=== PATIENT | male | born 1990 | race Asian ===

== ENCOUNTER 2016-11-27 23:47 | Emergency (ER) | payer SELFPAY ==
[2016-11-28] MEDS ORDERED: NORMAL SALINE 1000 ML 1,000 ML IV ONE (00:42)
[2016-11-28] MEDS ORDERED: ONDANSETRON HCL INJ/PF 4 MG/2 ML SDV IV ONE (00:42)
--- NOTE | 2016-11-28 00:51 | ER Document Report ---
ED General - General Chief Complaint: Nausea/Vomiting Stated Complaint: UNABLE TO SLEEP TRAVEL OUTSIDE OF THE [place] IN LAST 30 DAYS: No - HPI Notes: Patient is a 26-year-old male with a history of anxiety and bipolar who presents to the ED complaining of nausea and vomiting that began this evening has been persistent. Patient states that he is on day 2 of Latuda and tolerated it well yesterday, but today it is been irritating his stomach and he has been vomiting since. Patient states that he vomited 7 times in the last hour. Patient states that he cannot keep any fluids down at this time. Patient states that he does not have any abdominal pain, just nausea. Patient states that he does have a psych provider at [facility] and follows closely with them. Patient states that mentally he feels stable with no SI or HI. Patient states that he currently just feels weak from vomiting all evening. Patient states that he began taking Latuda because of mood swings. He denies any other significant past medical history or drug allergies. Denies any IV drug use. Denies any headache, fever, neck pain, changes in vision/speech/ mentation/hearing, URI, sore throat, chest pain, palpitations, syncope, cough, shortness of breath, wheeze, dyspnea, abdominal pain, diarrhea, urinary retention, dysuria, hematuria, or rash. - Related Data Allergies/Adverse Reactions: No Known Allergies Allergy (Verified 04/17/13 12:07) Past Medical History - Social History Smoking Status: Unknown if Ever Smoked Family History: Reviewed & Not Pertinent Patient has suicidal ideation: No Patient has homicidal ideation: No Renal/ Medical History: Denies: Hx Peritoneal Dialysis Psychiatric Medical History: Reports: Hx Bipolar Disorder, Hx Depression - Immunizations Hx Diphtheria, Pertussis, Tetanus Vaccination: Yes Review of Systems - Review of Systems Notes: REVIEW OF SYSTEMS: CONSTITUTIONAL : Denies fever, chills, or sweats. Denies recent illness. EENT: Denies eye, ear, throat, or mouth pain or symptoms. Denies nasal or sinus congestion or discharge. Denies throat, tongue, or mouth swelling or difficulty swallowing. CARDIOVASCULAR: Denies chest pain. Denies palpitations or racing or irregular heart beat. Denies ankle edema. RESPIRATORY: Denies cough, cold, or chest congestion. Denies shortness of breath, difficulty breathing, or wheezing. GASTROINTESTINAL: see hpi. GENITOURINARY: Denies difficulty urinating, painful urination, burning, frequency, blood in urine, or discharge. MUSCULOSKELETAL: Denies back or neck pain or stiffness. Denies joint pain or swelling. SKIN: Denies rash, lesions or sores. NEUROLOGICAL: Denies confusion or altered mental status. Denies passing out or loss of consciousness. Denies dizziness or lightheadedness. Denies headache. Denies weakness or paralysis or loss of use of either side. Denies problems with gait or speech. Denies sensory loss, numbness, or tingling. ALL OTHER SYSTEMS REVIEWED AND NEGATIVE. Dictation was performed using [employer] voice recognition software Physical Exam - Vital signs Vitals: Temp Pulse Resp BP Pulse Ox 98.7 F 94 20 125/77 99 11/28/16 00:01 11/28/16 00:01 11/28/16 00:01 11/28/16 00:01 11/28/16 00:01 Notes: PHYSICAL EXAMINATION: GENERAL: Well-appearing, well-nourished and in no acute distress. HEAD: Atraumatic, normocephalic. EYES: Pupils equal round and reactive to light, extraocular movements intact, sclera anicteric, conjunctiva are normal. ENT: Nares patent and without discharge. oropharynx clear without exudates. No tonsilar hypertrophy or erythema. Moist mucous membranes. No sinus tenderness. NECK: Normal range of motion, supple without lymphadenopathy. No rigidity. LUNGS: Breath sounds clear to auscultation bilaterally and equal. No wheezes rales or rhonchi. HEART: Regular rate and rhythm without murmurs, rubs, gallops. ABDOMEN: Soft, nontender, nondistended abdomen. No guarding, no rebound. No masses appreciated. Normal bowel sounds present. No CVA tenderness bilaterally. Doan neg. Psoas/rosving neg. Musculoskeletal: FROM to passive/active. Strength 5+/5. Extremities: No cyanosis, clubbing, or edema b/l. NEUROLOGICAL: MMSE intact. Cranial nerves grossly intact. Normal speech, normal gait. Normal sensory, motor exams PSYCH: Normal mood, normal affect. SKIN: Warm, Dry, normal turgor, no rashes or lesions noted. Course - Re-evaluation Re-evalutation: 11/28/16 02:31 Patient is an afebrile, well-hydrated, 26-year-old male who presents the ED with nausea and vomiting, suspect an intolerance with his Latuda. Vitals are stable. PE otherwise unremarkable at this time. CBC, CMP, lipase were unremarkable for any acute pathology. 1 L normal saline and Zofran given today along with initial swelling of rubbing alcohol pads. Upon reevaluation, patient states that he is feeling much better and has not vomited since prior to my evaluation. Patient states that he is ready to go home and is asymptomatic currently. Patient is tolerating p.o. intake. Low suspicion/risk for acute appendicitis, bowel obstruction, acute cholecystitis, perforated diverticulitis, incarcerated hernia, pancreatitis, perforated ulcer, peritonitis , sepsis, testicular torsion, or other systemic emergent condition at this time. Patient is aware that his condition can change from initial presentation and he needs to monitor symptoms closely and seek medical attention if any acute changes. Conservative measures otherwise for symptoms. Recheck with PCM in 2-3 days. Patient to call his psych provider tomorrow morning to further discuss his medication. Return to the ED with any worsening/concerning symptoms otherwise as reviewed in discharge. Patient is in agreement. - Vital Signs Vital signs: Temp Pulse Resp BP Pulse Ox 98.7 F 94 20 125/77 99 11/28/16 00:01 11/28/16 00:01 11/28/16 00:01 11/28/16 00:01 11/28/16 00:01 - Laboratory Result Diagrams: 11/28/16 01:25 11/28/16 01:25 Laboratory results interpreted by me: 11/28/16 11/28/16 01:25 01:25 RBC 4.27 L Glucose 115 H Discharge - Discharge Clinical Impression: Nausea and vomiting Qualifiers: Vomiting type: unspecified Vomiting Intractability: non-intractable Qualified Code(s): R11.2 - Nausea with vomiting, unspecified Condition: Stable Disposition: HOME, SELF-CARE Instructions: Antinausea Medication ([facility]), Intravenous (IV) Fluids ([facility]), Vomiting ([facility]) Additional Instructions: Maintain adequate fluid and food intake Take medications as directed/needed Monitor for any acute changes in your symptoms Recheck with your PCM in 2-3 days Call your psych provider for further management/guidance Return to the ED with any worsening symptoms and/or development of fever, headache, chest pain, palpitations, syncope, shortness of breath, trouble breathing, abdominal pain, n/v/d, blood in stool/urine, loss of control of bowel /bladder, or other worsening symptoms that are concerning to you. Prescriptions: Ondansetron [Zofran Odt 4 mg Tablet] 1 - 2 tab PO Q4H PRN #15 tab.rapdis PRN Reason: For Nausea/Vomiting Referrals: [facility] [Provider Group] - Follow up as needed [facility] [Provider Group] - Follow up as needed [facility] [Provider Group] - Follow up tomorrow
[2016-11-28 01:49] LABS: ABSOLUTE BASOPHILS # (AUTO) 0.1 10^3/uL (0.0-0.2); ABSOLUTE MONOCYTES (AUTO) 0.5 10^3/uL (0.1-1.4); ABSOLUTE NEUT (AUTO) 3.4 10^3/uL (1.7-8.2); BASOPHILS % (AUTO) 1.5 % (0-2); EOSINOPHILS % (AUTO) 0.5 % (0-6); HEMATOCRIT 39.9 % (37.9-51.0); HEMOGLOBIN 14.2 g/dL (13.5-17.0); HGB HCT DIFFERENCE 2.7; LYMPHOCYTES % (AUTO) 20.5 % (13-45); MEAN CORPUSCULAR HEMOGLOBIN 33.2 pg (27.0-33.4); MEAN CORPUSCULAR HGB CONC 35.5 g/dL (32.0-36.0); MEAN CORPUSCULAR VOLUME 93 fl (80-97); MONOCYTES % (AUTO) 9.7 % (3-13); RED BLOOD COUNT 4.27 10^6/uL (4.35-5.55); SEGMENTED NEUTROPHILS % (AUTO) 67.8 % (42-78)
[2016-11-28 02:00] LABS: ALANINE AMINOTRANSFERASE 24 U/L (21-72); ALBUMIN 4.3 g/dL (3.5-5.0); ALKALINE PHOSPHATASE 47 U/L (38-126); ANION GAP 12 (5-19); ASPARTATE AMINO TRANSFERASE 18 U/L (17-59); BILIRUBIN,DIRECT 0.3 mg/dL (0.0-0.4); BILIRUBIN,TOTAL 0.5 mg/dL (0.2-1.3); BLOOD UREA NITROGEN 10 mg/dL (7-20); CALCIUM 9.1 mg/dL (8.4-10.2); CARBON DIOXIDE 25 mmol/L (22-30); CHLORIDE 104 mmol/L (98-107); CREATININE RESULT 0.62 mg/dL (0.52-1.25); GLUCOSE 115 mg/dL (75-110); POTASSIUM 4.1 mmol/L (3.6-5.0); SODIUM 140.6 mmol/L (137-145); TOTAL PROTEIN 7.1 g/dL (6.3-8.2)
[2016-11-28 03:08] VITALS: BP 97/58
== END 2016-11-28 02:55 | disposition home or self-care (01) ==
LOC: ER 23:47
DX: R11.2 Nausea with vomiting, unspecified (principal)
CPT/HCPCS: 99283; 96361; 96374; 36415; 83690; 85025; 80053; J2405; J7030

== ENCOUNTER 2016-11-28 16:23 | Emergency (ER) | payer SELFPAY ==
[2016-11-28 16:32] VITALS: BP 110/61
== END 2016-11-28 16:47 | disposition left against medical advice (07) ==
LOC: ER 16:23
DX: Z53.21 Procedure and treatment not carried out due to patient leaving prior to being seen by health care provider (principal)

== ENCOUNTER 2016-11-28 18:47 | Emergency (ER) | payer SELFPAY ==
--- NOTE | 2016-11-28 19:56 | ER Document Report ---
ED General - General Chief Complaint: Nausea/Vomiting Stated Complaint: NAUSEA Time Seen by Provider: 11/28/16 19:54 Mode of Arrival: Ambulatory Information source: Patient Notes: Patient has a history of bipolar with mood disorder. He states 2 days ago he was started on Latuda. He states now he has had restlessness with nausea and vomiting. He states that he stopped taking it at the advice of his psychiatrist today. He states that he is waiting in the waiting room many of his symptoms have resolved. He states the abdominal cramping is much better. When he did have symptoms he had some mild to moderate abdominal cramping. It was diffuse. Nothing made it better or worse. There was no radiation. TRAVEL OUTSIDE OF THE [place] IN LAST 30 DAYS: No - Related Data Allergies/Adverse Reactions: No Known Allergies Allergy (Verified 11/28/16 18:51) Past Medical History - Social History Smoking Status: Never Smoker Chew tobacco use (# tins/day): No Frequency of alcohol use: None Drug Abuse: None Family History: Reviewed & Not Pertinent Renal/ Medical History: Denies: Hx Peritoneal Dialysis Psychiatric Medical History: Reports: Hx Bipolar Disorder, Hx Depression - Immunizations Hx Diphtheria, Pertussis, Tetanus Vaccination: Yes Review of Systems - Review of Systems Constitutional: denies: Chills, Fever Cardiovascular: denies: Chest pain, Palpitations Respiratory: denies: Cough, Short of breath Physical Exam - Vital signs Vitals: Temp Pulse Resp BP Pulse Ox 98.3 F 106 H 16 110/63 100 11/28/16 18:51 11/28/16 18:51 11/28/16 18:51 11/28/16 18:51 11/28/16 18:51 Interpretation: Normal, Other - Although patient was tachycardic in the pivot area on my exam his pulse was 82. - General General appearance: Appears well, Alert - HEENT Head: Normocephalic, Atraumatic Eyes: Normal Pupils: PERRL - Respiratory Respiratory status: No respiratory distress Chest status: Nontender Breath sounds: Normal Chest palpation: Normal - Cardiovascular Rhythm: Regular Heart sounds: Normal auscultation Murmur: No - Abdominal Inspection: Normal Distension: No distension Bowel sounds: Normal Tenderness: Nontender Organomegaly: No organomegaly - Back Back: Normal, Nontender - Extremities General upper extremity: Normal inspection, Nontender, Normal color, Normal ROM , Normal temperature General lower extremity: Normal inspection, Nontender, Normal color, Normal ROM , Normal temperature, Normal weight bearing. No: Poonam's sign - Neurological Neuro grossly intact: Yes Cognition: Normal Orientation: AAOx4 Hudson Coma Scale Eye Opening: Spontaneous Patrick Coma Scale Verbal: Oriented Hudson Coma Scale Motor: Obeys Commands Hudson Coma Scale Total: 15 Speech: Normal Motor strength normal: LUE, RUE, LLE, RLE Sensory: Normal - Psychological Associated symptoms: Normal affect, Normal mood - Skin Skin Temperature: Warm Skin Moisture: Dry Skin Color: Normal Course - Vital Signs Vital signs: Temp Pulse Resp BP Pulse Ox 98.3 F 106 H 16 110/63 100 11/28/16 18:51 11/28/16 18:51 11/28/16 18:51 11/28/16 18:51 11/28/16 18:51 Discharge - Discharge Clinical Impression: Adverse drug reaction Condition: Stable Disposition: HOME, SELF-CARE Instructions: Medication Side Effects ([facility]) Additional Instructions: Do not take any more Latuda. Call your mental health physician and discuss appropriate medication since you can no longer take Latuda.
[2016-11-28 20:07] VITALS: BP 114/68
== END 2016-11-28 19:58 | disposition home or self-care (01) ==
LOC: ER 18:47
DX: R11.2 Nausea with vomiting, unspecified (principal); R45.1 Restlessness and agitation; T43.595A Adverse effect of other antipsychotics and neuroleptics, initial encounter; F31.9 Bipolar disorder, unspecified
CPT/HCPCS: 99283

== ENCOUNTER 2016-11-28 21:48 | Emergency (ER) | payer SELFPAY ==
[2016-11-28] MEDS ORDERED: PROMETHAZINE HCL 25 MG TABLET PO ONE (23:23)
--- NOTE | 2016-11-28 23:40 | ER Document Report ---
ED General - General Chief Complaint: Nausea/Vomiting Stated Complaint: NAUSEA Time Seen by Provider: 11/28/16 23:14 Notes: Patient is a 26-year-old male who presents with complaint of having nausea and severe anxiety. He was on Latuda. After starting Latuda he felt very sick and a lot of vomiting. He stopped the Latuda and was feeling better. He came back earlier tonight because he was turned feel nauseous again said while in the waiting room he felt better went home. He says when he got home he should feel very anxious and feels like he cannot control his anxiety which makes him more nauseous and feeling well. Since he has arrived here he says he feels better but says that he knows as soon as he goes home he will get extremely anxious and will be back to feeling nauseous and potentially vomiting. Denies abdominal pain. No fevers. No blood in his emesis. No diarrhea. No other complaints at this time. He has a history of bipolar and anxiety. TRAVEL OUTSIDE OF THE [place] IN LAST 30 DAYS: No - Related Data Allergies/Adverse Reactions: No Known Allergies Allergy (Verified 11/28/16 18:51) Past Medical History - Social History Smoking Status: Never Smoker Frequency of alcohol use: None Drug Abuse: None Family History: Reviewed & Not Pertinent Patient has suicidal ideation: No Renal/ Medical History: Denies: Hx Peritoneal Dialysis Psychiatric Medical History: Reports: Hx Bipolar Disorder, Hx Depression - Immunizations Hx Diphtheria, Pertussis, Tetanus Vaccination: Yes Review of Systems - Review of Systems Notes: My Normal Review Basic REVIEW OF SYSTEMS: CONSTITUTIONAL : Denies fever, chills, or sweats. Denies recent illness. EENT: Denies eye, ear, throat, or mouth pain or symptoms. Denies nasal or sinus congestion. CARDIOVASCULAR: Denies chest pain. RESPIRATORY: Denies cough, cold, or chest congestion. Denies shortness of breath, difficulty breathing, or wheezing. GASTROINTESTINAL: Denies abdominal pain. Some vomiting MUSCULOSKELETAL: Denies neck or back pain or joint pain or swelling. SKIN: Denies rash or skin lesions. NEUROLOGICAL: Denies altered mental status or loss of consciousness. Denies headache. Denies weakness or paralysis or loss of use of either side. Denies problems with gait or speech. Denies sensory or motor loss. PSYCHIATRIC: Severe anxiety ALL OTHER SYSTEMS REVIEWED AND NEGATIVE. Physical Exam - Vital signs Vitals: Temp Pulse Resp BP Pulse Ox 98.8 F 66 18 115/74 97 11/28/16 21:54 11/28/16 21:54 11/28/16 21:54 11/28/16 21:54 11/28/16 21:54 - Notes Notes: General Appearance: Well nourished, alert, cooperative, no acute distress, no obvious discomfort. Vitals: reviewed, See vital signs table. Head: no swelling or tenderness to the head Eyes: PERRL, EOMI, Conjuctiva clear Mouth: No decreasd moisture Lungs: No wheezing, No rales, No rhonci, No accessory muscle use, good air exchange bilaterally. Heart: Normal rate, Regular rythm, No murmur, no rub Abdomen: Normal BS, soft, No rigidity, No abdominal tenderness, No guarding, no rebound, no abdominal masses, no organomegaly Extremities: strength 5/5 in all extremities, good pulses in all extremities, no swelling or tenderness in the extremities, no edema. Skin: warm, dry, appropriate color, no rash Neuro: speech clear, oriented x 3, normal affect, responds appropriately to questions. Course - Re-evaluation Re-evalutation: 11/29/16 03:31 Patient is medically stable for psychiatric evaluation. He complains of severe anxiety. He was taken off as a 2 weeks of side effects of the vomiting. Now is having anxiety and wants help. Patient is on involuntary commitment paperwork. Is not suicidal homicidal. Patient is stable. Dictation of this chart was performed using voice recognition software; therefore, there may be some unintended grammatical errors. - Vital Signs Vital signs: Temp Pulse Resp BP Pulse Ox 98.8 F 66 18 115/74 97 11/28/16 21:54 11/28/16 21:54 11/28/16 21:54 11/28/16 21:54 11/28/16 21:54 - Laboratory Result Diagrams: 11/28/16 23:35 11/28/16 23:35 Laboratory results interpreted by me: 11/28/16 11/28/16 23:35 23:35 RBC 4.13 L Potassium 3.4 L AST 14 L ALT 20 L Salicylates < 1.0 L Acetaminophen < 10 L - EKG Interpretation by Me Additional EKG results interpreted by me: EKG is reviewed and interpreted by me. EKG shows sinus bradycardia with rate of [address] segment elevation or depression. No ischemic T-wave inversions. PA interval, QRS duration, QTc intervals are within normal range. Old EKG for comparison is from December 01, 2015. 11/28/16 23:39 Discharge - Discharge Clinical Impression: Anxiety Condition: Stable Disposition: PSYCH HOSP/UNIT
[2016-11-28 23:48] LABS: ABSOLUTE LYMPHOCYTES (AUTO) 1.2 10^3/uL (0.5-4.7); ABSOLUTE MONOCYTES (AUTO) 0.5 10^3/uL (0.1-1.4); ABSOLUTE NEUT (AUTO) 2.7 10^3/uL (1.7-8.2); EOSINOPHILS % (AUTO) 0.1 % (0-6); HEMATOCRIT 38.4 % (37.9-51.0); HEMOGLOBIN 13.7 g/dL (13.5-17.0); HGB HCT DIFFERENCE 2.7; MEAN CORPUSCULAR HEMOGLOBIN 33.2 pg (27.0-33.4); MEAN CORPUSCULAR HGB CONC 35.7 g/dL (32.0-36.0); MEAN CORPUSCULAR VOLUME 93 fl (80-97); MONOCYTES % (AUTO) 11.6 % (3-13); RED BLOOD COUNT 4.13 10^6/uL (4.35-5.55); SEGMENTED NEUTROPHILS % (AUTO) 61.3 % (42-78); WHITE BLOOD COUNT 4.4 10^3/uL (4.0-10.5)
[2016-11-28 23:58] LABS: ALANINE AMINOTRANSFERASE 20 U/L (21-72); ALBUMIN 4.2 g/dL (3.5-5.0); ALKALINE PHOSPHATASE 49 U/L (38-126); ANION GAP 9 (5-19); ASPARTATE AMINO TRANSFERASE 14 U/L (17-59); BILIRUBIN,DIRECT 0.2 mg/dL (0.0-0.4); BLOOD UREA NITROGEN 7 mg/dL (7-20); CALCIUM 9.3 mg/dL (8.4-10.2); CARBON DIOXIDE 25 mmol/L (22-30); CHLORIDE 107 mmol/L (98-107); CREATININE RESULT 0.65 mg/dL (0.52-1.25); GLUCOSE 101 mg/dL (75-110); POTASSIUM 3.4 mmol/L (3.6-5.0); SODIUM 141.3 mmol/L (137-145); TOTAL PROTEIN 6.9 g/dL (6.3-8.2)
[2016-11-29 00:01] LABS: ALCOHOL < 10 mg/dL (NONE DETECTED)
[2016-11-29] MEDS ORDERED: POTASSIUM CHLORIDE 10 MEQ TABLET.SA PO ONE (01:50)
[2016-11-29 08:55] LABS: APPEARANCE,URINE CLEAR; BILIRUBIN,URINE NEGATIVE (NEGATIVE); GLUCOSE, URINE NEGATIVE (NEGATIVE); KETONES,URINE TRACE mg/dL (NEGATIVE); LEUKOCYTE ESTERASE,URINE NEGATIVE (NEGATIVE); NITRITE,URINE NEGATIVE (NEGATIVE); PROTEIN,URINE NEGATIVE (NEGATIVE); URINE SPECIFIC GRAVITY 1.016
[2016-11-29 09:06] LABS: URINE BARBITURATES SCREEN NEGATIVE; URINE METHADONE SCREEN NEGATIVE; URINE OPIATES LOW NEGATIVE; URINE PHENCYCLIDINE SCREEN NEGATIVE
--- NOTE | 2016-11-29 10:04 | EKG REPORT ---
SEVERITY:- BORDERLINE ECG - SINUS RHYTHM INFERIOR Q WAVES, PROBABLY NORMAL VARIATION : Confirmed by: Matilda Salvador MD 29-Nov-2016 10:03:11
--- NOTE | 2016-11-29 10:08 | ER Document Report ---
Doctor's Note Notes: 11/29/16 10:05 Patient sleeping comfortably on stretcher, easily awakens, reports feeling much better this morning and ready to go home, patient denies suicidal or homicidal ideation, states that he has suffered from anxiety his whole life, recently started on a new medication, Latuda, he is currently in services through [facility] and admits to having several therapy appointments over the next few weeks, patient reports that he feels safe to go home, lab and vital signs are stable, patient is stable for discharge Discharge - Discharge Clinical Impression: Anxiety Condition: Stable Disposition: HOME, SELF-CARE Additional Instructions: Anxiety The physician feels that some of your health problems are being caused by anxiety. Anxiety affects your health in many ways. Anxiety alone can cause palpitations, sweats, chest pains, abdominal pains, shortness of breath, and headaches. It contributes to ulcer disease, high blood pressure, irritable bowel syndrome, and has been shown to cause flare-ups of many other diseases. Anxiety is not a simple disorder to treat. If the anxiety is due to recent life stresses, you may simply need time to "work through" the changes. If the anxiety is due to an underlying unhappiness with yourself or due to psychiatric disturbance, professional help will be needed. Your physician can refer you for further help if needed. Anti-anxiety medication is occasionally given if the stress is acute or if you are having trouble sleeping. Chronic or frequent use of these medications is not a good idea because the body becomes reliant on it, preventing you from dealing with life's normal stresses. Please follow-up with [facility] upon discharge. AT ANY TIME, IF YOUR SYMPTOMS CHANGE SIGNIFICANTLY OR WORSEN OR YOU DEVELOP NEW SYMPTOMS, RETURN TO THE EMERGENCY DEPARTMENT IMMEDIATELY FOR RE-EVALUATION. OUR GOAL IS TO PROVIDE EXCELLENT MEDICAL CARE! WE HOPE THAT WE HAVE MET YOUR EXPECTATIONS DURING YOUR EMERGENCY DEPARTMENT VISIT AND THAT YOU FEEL YOU HAVE RECEIVED EXCELLENT CARE! Referrals: [facility] [Outside] - 11/29/16
--- NOTE | 2016-11-29 11:27 | ER Document Report ---
ED Psych Disorder / Suicide - General Chief Complaint: Nausea/Vomiting Stated Complaint: NAUSEA Time Seen by Provider: 11/28/16 23:14 TRAVEL OUTSIDE OF THE [place] IN LAST 30 DAYS: No - HPI Notes: Patient is a 26-year-old male who presents with complaint of having nausea and severe anxiety. He was on Latuda. After starting Latuda he felt very sick and a lot of vomiting. He stopped the Latuda and was feeling better. He came back earlier tonight because he was turned feel nauseous again said while in the waiting room he felt better went home. He says when he got home he should feel very anxious and feels like he cannot control his anxiety which makes him more nauseous and feeling well. Since he has arrived here he says he feels better but says that he knows as soon as he goes home he will get extremely anxious and will be back to feeling nauseous and potentially vomiting. Patient states he no longer is feeling nauseous. He disclosed he started taking Latuda and started to feel sick. Patient states he took his medication in the evening with a full meal; last dose was on the . Patient states he does not normally vomit from his anxiety. Patient is seen at [facility]. He denied suicidal and homicidal ideation. He disclosed he has never had an issue with seeing or hearing things that others do not. Patient is alert and orientated to person, place, time and circumstance. Mood is euthymic with congruent affect. Patient denies suicidal and homicidal ideation. Patient denies auditory visual hallucinations. Delusions were absent and behaviors congruent with intact reality based presentation i.e. organized, linear, rational thinking. Conversational speech was within normal rate tone and prosody. Eye contact was well-maintained. Intellectual abilities appear to be within the average range. Tension and concentration was good. Insight, judgment, impulse control is good. 300.00 (F41.9) unspecified anxiety disorder per history provided by patient Adverse reaction to medication Impression\\plan: Patient is considered psychiatrically clear for discharge. Patient does not meet IVC criteria per [place] GS 122C. Patient denies suicidal and homicidal ideation. Delusions were absent behaviors congruent with intact reality based presentation i.e. organized, linear, rational thinking. Patient does have diagnosis of anxiety (per patient);however, patient does not have vomiting as a symptom of anxiety. Patient reports symptoms of anxiety increased and vomiting started after taking Latuda. Patient is no longer experiencing nausea and reports he is feeling calm. Patient is not demonstrating any behaviors congruent with anxiety i.e. patient is calm and resting in bed (no psychomotor agitation, sweating, or attention/concentration issues observed) patient is recommended to follow-up with his outpatient provider, [facility], upon discharge. Dr. López was consulted and the care and management of this patient; attending physician is in agreement with recommendations and disposition. - Related Data Allergies/Adverse Reactions: No Known Allergies Allergy (Verified 11/28/16 18:51) Past Medical History - Social History Smoking Status: Never Smoker Frequency of alcohol use: None Drug Abuse: None Family History: Reviewed & Not Pertinent Patient has suicidal ideation: No Renal/ Medical History: Denies: Hx Peritoneal Dialysis Psychiatric Medical History: Reports: Hx Bipolar Disorder, Hx Depression - Immunizations Hx Diphtheria, Pertussis, Tetanus Vaccination: Yes Physical Exam - Vital signs Vitals: Temp Pulse Resp BP Pulse Ox 98.8 F 66 18 115/74 97 11/28/16 21:54 11/28/16 21:54 11/28/16 21:54 11/28/16 21:54 11/28/16 21:54 Course - Vital Signs Vital signs: Temp Pulse Resp BP Pulse Ox 98.0 F 53 L 18 98/54 L 98 11/29/16 06:28 11/29/16 06:28 11/28/16 21:54 11/29/16 06:28 11/29/16 06:28 - Laboratory Result Diagrams: 11/28/16 23:35 11/28/16 23:35 Laboratory results interpreted by me: 11/28/16 11/28/16 11/29/16 23:35 23:35 08:10 RBC 4.13 L Potassium 3.4 L AST 14 L ALT 20 L Urine Ketones TRACE H Urine Urobilinogen 2.0 H Salicylates < 1.0 L Acetaminophen < 10 L Discharge - Discharge Clinical Impression: Anxiety Condition: Stable Disposition: HOME, SELF-CARE Additional Instructions: Anxiety The physician feels that some of your health problems are being caused by anxiety. Anxiety affects your health in many ways. Anxiety alone can cause palpitations, sweats, chest pains, abdominal pains, shortness of breath, and headaches. It contributes to ulcer disease, high blood pressure, irritable bowel syndrome, and has been shown to cause flare-ups of many other diseases. Anxiety is not a simple disorder to treat. If the anxiety is due to recent life stresses, you may simply need time to "work through" the changes. If the anxiety is due to an underlying unhappiness with yourself or due to psychiatric disturbance, professional help will be needed. Your physician can refer you for further help if needed. Anti-anxiety medication is occasionally given if the stress is acute or if you are having trouble sleeping. Chronic or frequent use of these medications is not a good idea because the body becomes reliant on it, preventing you from dealing with life's normal stresses. Please follow-up with [facility] upon discharge. AT ANY TIME, IF YOUR SYMPTOMS CHANGE SIGNIFICANTLY OR WORSEN OR YOU DEVELOP NEW SYMPTOMS, RETURN TO THE EMERGENCY DEPARTMENT IMMEDIATELY FOR RE-EVALUATION. OUR GOAL IS TO PROVIDE EXCELLENT MEDICAL CARE! WE HOPE THAT WE HAVE MET YOUR EXPECTATIONS DURING YOUR EMERGENCY DEPARTMENT VISIT AND THAT YOU FEEL YOU HAVE RECEIVED EXCELLENT CARE! Referrals: [facility] [Outside] - 11/29/16
[2016-11-29 11:54] VITALS: BP 104/71
== END 2016-11-29 11:56 | disposition home or self-care (01) ==
LOC: ER 21:48
DX: F41.9 Anxiety disorder, unspecified (principal); R11.0 Nausea
CPT/HCPCS: 36415; 80053; 80307; 81001; 85025; 93005; 93010; 99284

== ENCOUNTER 2017-03-18 03:46 | Emergency (ER) | payer SELFPAY ==
[2017-03-18] MEDS ORDERED: NORMAL SALINE 1000 ML 1,000 ML IV ONE (05:08)
[2017-03-18] MEDS ORDERED: ONDANSETRON HCL INJ/PF 4 MG/2 ML SDV IV ONE (05:08)
--- NOTE | 2017-03-18 05:21 | ER Document Report ---
ED General - General Chief Complaint: Abdominal Pain Stated Complaint: STOMACH PAIN/VOMITING Time Seen by Provider: 03/18/17 05:11 TRAVEL OUTSIDE OF THE [place] IN LAST 30 DAYS: No - HPI Notes: Patient is a 26-year-old male with no significant past medical history aside her mental health disorder who presents the ED complaining of episodes of nausea /vomiting/loose stool 1 week. Pt has vomited twice today. Patient states that he has a discomfort to his left lower quadrant, but is not a sharp pain. Patient states that he also has increased urinary frequency. Patient is able to eat and drink, but does have a decreased p.o. intake. Patient has not been using any [id number] meds for symptoms. Patient states that his discomfort in the abdomen will increase in intensity intermittently. Patient states that it the discomfort right now is described as a dullness. The pain does not radiate. Denies any headache, fever, neck pain, URI, sore throat, chest pain, palpitations, syncope, cough, shortness of breath, wheeze, dyspnea, melena, hematochezia, hematemesis, diarrhea, urinary retention, dysuria, hematuria, loss of control of bowel or bladder, numbness/tingling, saddle anesthesia, muscle paralysis/weakness, or rash. - Related Data Allergies/Adverse Reactions: No Known Allergies Allergy (Verified 03/18/17 03:50) Past Medical History - Social History Smoking Status: Unknown if Ever Smoked Family History: Reviewed & Not Pertinent Renal/ Medical History: Denies: Hx Peritoneal Dialysis Psychiatric Medical History: Reports: Hx Bipolar Disorder, Hx Depression - Immunizations Hx Diphtheria, Pertussis, Tetanus Vaccination: Yes Review of Systems - Review of Systems Notes: REVIEW OF SYSTEMS: CONSTITUTIONAL : Denies fever, chills, or sweats. Denies recent illness. EENT: Denies eye, ear, throat, or mouth pain or symptoms. Denies nasal or sinus congestion or discharge. Denies throat, tongue, or mouth swelling or difficulty swallowing. CARDIOVASCULAR: Denies chest pain. Denies palpitations or racing or irregular heart beat. Denies ankle edema. RESPIRATORY: Denies cough, cold, or chest congestion. Denies shortness of breath, difficulty breathing, or wheezing. GASTROINTESTINAL: see hpi. no watery stools. GENITOURINARY: see hpi MUSCULOSKELETAL: Denies back or neck pain or stiffness. Denies joint pain or swelling. SKIN: Denies rash, lesions or sores. NEUROLOGICAL: Denies confusion or altered mental status. Denies passing out or loss of consciousness. Denies dizziness or lightheadedness. Denies headache. Denies weakness or paralysis or loss of use of either side. Denies problems with gait or speech. Denies sensory loss, numbness, or tingling. Denies seizures. ALL OTHER SYSTEMS REVIEWED AND NEGATIVE. Dictation was performed using [employer] voice recognition software Physical Exam - Vital signs Vitals: Temp Pulse Resp BP Pulse Ox 97.9 F 82 16 126/83 H 99 03/18/17 03:53 03/18/17 03:53 03/18/17 03:53 03/18/17 03:53 03/18/17 03:53 Notes: PHYSICAL EXAMINATION: GENERAL: Well-appearing, well-nourished and in no acute distress. A&Ox4. Answers questions appropriately. appears comfortable and moving w/o difficulty. HEAD: Atraumatic, normocephalic. EYES: Pupils equal round and reactive to light, extraocular movements intact, sclera anicteric, conjunctiva are normal. ENT: Nares patent and without discharge. oropharynx clear without exudates. No tonsilar hypertrophy or erythema. Moist mucous membranes. NECK: Normal range of motion, supple without lymphadenopathy LUNGS: Breath sounds clear to auscultation bilaterally and equal. No wheezes rales or rhonchi. HEART: Regular rate and rhythm without murmurs, rubs, gallops. ABDOMEN: Soft, nontender, nondistended abdomen. No guarding, no rebound. No masses appreciated. Normal bowel sounds present. No CVA tenderness bilaterally. No obvious inguinal hernia or lymphadenopathy. Musculoskeletal: FROM to passive/active. Strength 5+/5. Extremities: No cyanosis, clubbing, or edema b/l. Peripheral pulses 2+. Capillary refill less than 3 seconds. NEUROLOGICAL: Normal speech, normal gait. Normal sensory, motor exams PSYCH: Normal mood, normal affect. SKIN: Warm, Dry, normal turgor, no rashes or lesions noted. Course - Re-evaluation Re-evalutation: 03/18/17 06:13 Patient is an afebrile, well-hydrated, 26-year-old male who presents the ED with suspected gastroenteritis, suspect viral. Vitals are stable. PE is otherwise unremarkable. Patient's abdomen was soft and nontender. CBC, CMP, lipase, urinalysis were unremarkable for any acute pathology. Patient was given fluids as well as Zofran. Patient is tolerating p.o. Low suspicion/risk for acute appendicitis, bowel obstruction, acute cholecystitis, perforated diverticulitis, incarcerated hernia, pancreatitis, perforated ulcer, peritonitis , sepsis, testicular torsion, or other systemic emergent condition at this time. Patient is aware that his condition can change from initial presentation and he needs to monitor symptoms closely and seek medical attention if any acute changes. I will send him home with a prescription for Zofran to use as needed. Conservative measures otherwise for symptoms. Recheck with PCM in 3-5 days. Consider consult with a senior data mining analyst. Return to the ED with any worsening/concerning symptoms otherwise as reviewed in discharge. Patient is in agreement. - Vital Signs Vital signs: Temp Pulse Resp BP Pulse Ox 97.9 F 82 16 126/83 H 99 03/18/17 03:53 03/18/17 03:53 03/18/17 03:53 03/18/17 03:53 03/18/17 03:53 - Laboratory Result Diagrams: 03/18/17 05:35 03/18/17 05:35 Laboratory results interpreted by me: 03/18/17 03/18/17 05:24 05:35 Total Bilirubin 1.6 H Urine Ketones 80 H Discharge - Discharge Clinical Impression: Acute gastroenteritis Condition: Stable Disposition: HOME, SELF-CARE Instructions: Gastroenteritis (adult) (ON LICENSE OF [facility]) Additional Instructions: Maintain adequate fluid and food intake [place] diet ([employer] Bananas, rice, apples, toast, etc Zofran as needed tylenol if needed Monitor for any worsening symptoms Make sure you are staying hydrated enough to urinate and have normal BM's Recheck with your PCM in 3-5 days Consider consult with Gastroenterology for ongoing/worsening symptoms Return to the ED with any worsening symptoms and/or development of fever, headache, chest pain, palpitations, syncope, shortness of breath, trouble breathing, abdominal pain, n/v/d, blood in stool/urine, weakness, or other worsening symptoms that are concerning to you. Prescriptions: Ondansetron [Zofran Odt 4 mg Tablet] 1 - 2 tab PO Q4H PRN #15 tab.rapdis PRN Reason: For Nausea/Vomiting Forms: Elevated Blood Pressure Referrals: REY MOJICA MD [ACTIVE STAFF] - Follow up as needed SULTANA WHALEN MD [ACTIVE STAFF] - Follow up as needed
[2017-03-18 05:37] LABS: APPEARANCE,URINE CLEAR; BILIRUBIN,URINE NEGATIVE (NEGATIVE); COLOR,URINE YELLOW; GLUCOSE, URINE NEGATIVE (NEGATIVE); KETONES,URINE 80 mg/dL (NEGATIVE); LEUKOCYTE ESTERASE,URINE NEGATIVE (NEGATIVE); NITRITE,URINE NEGATIVE (NEGATIVE); PROTEIN,URINE NEGATIVE (NEGATIVE); URINE SPECIFIC GRAVITY 1.013; UROBILINOGEN,URINE NEGATIVE mg/dL (<2.0)
[2017-03-18 05:52] LABS: ABSOLUTE LYMPHOCYTES (AUTO) 1.2 10^3/uL (0.5-4.7); ABSOLUTE MONOCYTES (AUTO) 0.6 10^3/uL (0.1-1.4); ABSOLUTE NEUT (AUTO) 2.8 10^3/uL (1.7-8.2); BASOPHILS % (AUTO) 0.6 % (0-2); EOSINOPHILS % (AUTO) 0.3 % (0-6); HEMOGLOBIN 14.4 g/dL (13.5-17.0); MEAN CORPUSCULAR HEMOGLOBIN 33.2 pg (27.0-33.4); MEAN CORPUSCULAR HGB CONC 35.1 g/dL (32.0-36.0); MEAN CORPUSCULAR VOLUME 94 fl (80-97); MONOCYTES % (AUTO) 12.4 % (3-13); PLATELET COUNT 223 10^3/uL (150-450); RED BLOOD COUNT 4.35 10^6/uL (4.35-5.55); RED CELL DISTRIBUTION WIDTH 11.8 % (11.5-14.0); SEGMENTED NEUTROPHILS % (AUTO) 60.7 % (42-78); TOTAL CELLS COUNTED % (AUTO) 100 %; WHITE BLOOD COUNT 4.6 10^3/uL (4.0-10.5)
[2017-03-18 06:11] LABS: ALANINE AMINOTRANSFERASE 26 U/L (21-72); ALBUMIN 4.9 g/dL (3.5-5.0); ALKALINE PHOSPHATASE 53 U/L (38-126); ANION GAP 16 (5-19); ASPARTATE AMINO TRANSFERASE 49 U/L (17-59); BILIRUBIN,DIRECT 0.3 mg/dL (0.0-0.4); BILIRUBIN,TOTAL 1.6 mg/dL (0.2-1.3); BLOOD UREA NITROGEN 15 mg/dL (7-20); CALCIUM 9.3 mg/dL (8.4-10.2); CARBON DIOXIDE 22 mmol/L (22-30); CHLORIDE 101 mmol/L (98-107); GLUCOSE 75 mg/dL (75-110); LIPASE 60.6 U/L (23-300); POTASSIUM 3.6 mmol/L (3.6-5.0); SODIUM 139.2 mmol/L (137-145); TOTAL PROTEIN 7.8 g/dL (6.3-8.2)
[2017-03-18] MEDS ORDERED: KETOROLAC TROMETHAMINE INJ/PF 30 MG/1 ML SDV IV ONE (06:19)
[2017-03-18 07:08] VITALS: BP 104/53
== END 2017-03-18 07:08 | disposition home or self-care (01) ==
LOC: ER 03:46
DX: K52.9 Noninfective gastroenteritis and colitis, unspecified (principal); R11.2 Nausea with vomiting, unspecified; R35.0 Frequency of micturition
CPT/HCPCS: 99284; 36415; 83690; 85025; 80053; 81001; J1885; J2405; J7030

== ENCOUNTER 2017-03-18 23:04 | Emergency (ER) | payer SELFPAY ==
--- NOTE | 2017-03-19 04:26 | ER Document Report ---
ED General - General Chief Complaint: Dizziness Stated Complaint: NECK DISCOMFORT AND DIZZINESS Time Seen by Provider: 03/19/17 03:36 Notes: Patient is a 26-year-old male who returns emergency department complaining of dizziness and headache that has since resolved. Patient states that he went to bed when he went home after evaluation last night and felt fine all day. Patient states that he went to go lie down at 9:00 when he had pain in his neck and headache. Patient states that this is since resolved. He also admits to intermittent dizziness which is since resolved. Patient states that he does have a history of anxiety and dizziness. Patient states that he was drinking fluids throughout the day. TRAVEL OUTSIDE OF THE [place] IN LAST 30 DAYS: No - Related Data Allergies/Adverse Reactions: No Known Allergies Allergy (Verified 03/18/17 23:16) Past Medical History - Social History Smoking Status: Unknown if Ever Smoked Drug Abuse: Marijuana Family History: Reviewed & Not Pertinent Patient has suicidal ideation: No Patient has homicidal ideation: No Renal/ Medical History: Denies: Hx Peritoneal Dialysis Psychiatric Medical History: Reports: Hx Bipolar Disorder, Hx Depression - Immunizations Hx Diphtheria, Pertussis, Tetanus Vaccination: Yes Review of Systems - Review of Systems Constitutional: See HPI EENT: No symptoms reported Cardiovascular: No symptoms reported Respiratory: No symptoms reported Gastrointestinal: No symptoms reported Neurological/Psychological: See HPI -: Yes All other systems reviewed and negative Physical Exam - Vital signs Vitals: Temp Pulse Resp BP Pulse Ox 98.6 F 88 18 104/75 97 03/18/17 23:20 03/18/17 23:20 03/18/17 23:20 03/18/17 23:20 03/18/17 23:20 - Notes Notes: PHYSICAL EXAM GENERAL: Alert, interacts well. HEAD: Normocephalic, atraumatic. EYES: Pupils equal, round, and reactive to light. Extraocular movements intact. ENT: Oral mucosa moist, tongue midline. NECK: Full range of motion. Supple. Trachea midline. LUNGS: Clear to auscultation bilaterally, no wheezes, rales, or rhonchi. No respiratory distress. HEART: Regular rate and rhythm. No murmurs, gallops, or rubs. ABDOMEN: Soft, nondistended, nontender. No guarding, rebound, or rigidity.. Bowel sounds present in all 4 quadrants. EXTREMITIES: Moves all 4 extremities spontaneously. No edema, radial and dorsalis pedis pulses 2/4 bilaterally. No cyanosis. NEUROLOGICAL: Alert and oriented x4. Normal speech. PSYCH: Normal affect, normal mood. SKIN: Warm, dry, normal turgor. No rashes or lesions noted. Course - Re-evaluation Re-evalutation: 03/19/17 05:22 Patient is a 26-year-old male is hemodynamically stable, no acute distress and afebrile. Patient states that his symptoms have resolved after rest and PO fluids. Patient's hydration status is much improved upon assessment of orthostatic vitalsa urinalysis. Patient is tolerating p.o. here in the department without any difficulties. Discussed with him home management of his viral syndrome and otherwise to follow-up with primary care list on discharge paperwork. Patient agrees with plan and is stable for discharge home. - Vital Signs Vital signs: Temp Pulse Resp BP Pulse Ox 98.6 F 57 L 18 111/63 97 03/18/17 23:20 03/19/17 04:52 03/18/17 23:20 03/19/17 04:52 03/18/17 23:20 - Laboratory Laboratory results interpreted by me: 03/19/17 04:01 Urine Ketones TRACE H Discharge - Discharge Clinical Impression: Headache Qualifiers: Headache type: tension-type Headache chronicity pattern: acute headache Intractability: not intractable Qualified Code(s): G44.209 - Tension-type headache, unspecified, not intractable Condition: Good Disposition: HOME, SELF-CARE Additional Instructions: You were seen today for lightheadedness/dizziness. The exact cause of your symptoms is unclear but your workup here is reassuring without any concerning findings. Please follow closely with your primary care physician in the next 1- 3 days. Return if you pass out, have additional episodes of lightheadedness, develop weakness/numbness, have persistent vomiting, chest pain, shortness of breath or any other symptoms that are concerning to you Referrals: [facility] [Provider Group] - Follow up in 1 week [facility] [NO LOCAL MD] - Follow up in 1 week
[2017-03-19 04:27] LABS: APPEARANCE,URINE CLEAR; BILIRUBIN,URINE NEGATIVE (NEGATIVE); COLOR,URINE YELLOW; GLUCOSE, URINE NEGATIVE (NEGATIVE); KETONES,URINE TRACE mg/dL (NEGATIVE); LEUKOCYTE ESTERASE,URINE NEGATIVE (NEGATIVE); NITRITE,URINE NEGATIVE (NEGATIVE); PROTEIN,URINE NEGATIVE (NEGATIVE); URINE SPECIFIC GRAVITY 1.006; UROBILINOGEN,URINE NEGATIVE mg/dL (<2.0)
[2017-03-19 05:52] VITALS: BP 101/59
== END 2017-03-19 05:47 | disposition home or self-care (01) ==
LOC: ER 23:04
DX: G44.209 Tension-type headache, unspecified, not intractable (principal); R42 Dizziness and giddiness; M54.2 Cervicalgia
CPT/HCPCS: 81001; 99284

== ENCOUNTER 2017-03-21 10:03 | Emergency (ER) | payer SELFPAY ==
[2017-03-21] MEDS ORDERED: LORATADINE/PSEUDOEPHEDRINE SUL 10-240 MG TAB.SR.24H PO ONE (10:57)
[2017-03-21] MEDS ORDERED: BUTALB/ACETAMINOPHEN/CAFFEINE 1 TAB EACH PO ONE (10:57)
--- NOTE | 2017-03-21 10:57 | ER Document Report ---
HPI - HPI Patient complains to provider of: sinus congestion and headache Pain Level: 4 Context: Patient is a 26-year-old male who presents emergency department complaining of sinus congestion and headache for the past 3 weeks. Patient states that he does have history of allergies but has not been taking any medication. States he is concerned he is allergic to his. He has not taken anything for his headache or for his sinus congestion. He admits to left-sided headache without vision disturbances, light sensitivity or sound sensitivity. Primary care is with the [facility] was previously on Flonase. Past Medical History - Social History Smoking Status: Current Every Day Smoker Drug Abuse: Marijuana Family History: Reviewed & Not Pertinent Renal/ Medical History: Denies: Hx Peritoneal Dialysis Psychiatric Medical History: Reports: Hx Bipolar Disorder, Hx Depression - Immunizations Hx Diphtheria, Pertussis, Tetanus Vaccination: Yes Vertical Provider Document - CONSTITUTIONAL Agree With Documented VS: Yes Notes: PHYSICAL EXAM GENERAL: Alert, interacts well. HEENT: NCAT, pale conjunctiva, extraocular movements intact, pupils PERRL. external ear normal, no evidence of external auditory canal tenderness, blood/ drainage, cerumen impaction, TM intact without evidence of effusion, bulging, injection, MMM, Uvula midline. Airway patent. No evidence of tonsillar enlargement, peritonsillar abscess, retropharyngeal abscess. LUNGS: Clear to auscultation bilaterally, no wheezes, rales, or rhonchi. No respiratory distress. HEART: Regular rate and rhythm. No murmurs, gallops, or rubs. ABDOMEN: Soft, nondistended, nontender. No guarding, rebound, or rigidity.. Bowel sounds present in all 4 quadrants. EXTREMITIES: Moves all 4 extremities spontaneously. No edema, radial and dorsalis pedis pulses 2/4 bilaterally. No cyanosis. NEUROLOGICAL: Alert and oriented x4. Normal speech. PSYCH: Normal affect, normal mood. SKIN: Warm, dry, normal turgor. No rashes or lesions noted. - INFECTION CONTROL TRAVEL OUTSIDE OF THE [place] IN LAST 30 DAYS: No - RESPIRATORY O2 Sat by Pulse Oximetry: 100 Course - Re-evaluation Re-evalutation: 03/21/17 11:52 Presentation is most consistent with allergic rhinitis with associated headache secondary to nasal congestion. Patient is overall well appearance, vitals within normal limits, well-hydrated. Complete resolution of his headache sinus congestion after medications given in the department. Patient denies any fever , neck pain, and has no evidence of meningismus on examination. Lungs are clear bilaterally. No evidence of respiratory distress. Based on clinical exam and history, I do not suspect an acute pneumonia, meningitis, strep pharyngitis, or an acute encephalitis. No laboratory or imaging testing is indicated at this time. Will discharge patient with return precautions and followup recommendations. They are in agreement this plan have verbalized understanding return precautions. - Vital Signs Vital signs: Temp Pulse Resp BP Pulse Ox 97.9 F 60 16 114/61 100 03/21/17 10:06 03/21/17 10:06 03/21/17 10:06 03/21/17 10:06 03/21/17 10:06 Discharge - Discharge Clinical Impression: Allergic rhinitis Qualifiers: Allergic rhinitis trigger: other Allergic rhinitis seasonality: seasonal Qualified Code(s): J30.89 - Other allergic rhinitis Headache Qualifiers: Headache type: unspecified Headache chronicity pattern: unspecified pattern Intractability: not intractable Qualified Code(s): R51 - Headache Condition: Good Disposition: HOME, SELF-CARE Instructions: Headache ([facility]), Nasal Sprays and Drops ([facility]), Non-Sedating Prescription Antihistamine ([facility]), OTC Antihistamines ([facility]) Additional Instructions: Your symptoms today are consistent with your seasonal allergies or possibly related to tear. As an emergency department we cannot evaluate specific allergens this requires a specialist. Please start taking a daily nondrowsy antihistamine such as Claritin/Alie/Zyrtec. You can also utilize pseudoephedrine as a decongestant. You should take lofh-ncf-agnafnd guanfacine per bottle instructions to help thin the mucus. For nasal congestion: I would recommend that you get urql-yvw-qmlglru oxymetazoline also known is afrin. Use only per bottle instructions and be sure to never use this for more than 3 days if you can develop severe rebound congestion. Please be sure to drink plenty of fluids and get rest. Return to the emergency department he began having difficulty breathing, chest pain, persistent vomiting, or any other symptoms that are concerning to you. Prescriptions: Butalb/Acetaminophen/Caffeine [Fioricet (50-325-40 mg) Tablet] 1 - 2 tab PO Q8HP PRN #15 tab PRN Reason: Referrals: [facility] [NO LOCAL MD] - Follow up in 1 week
[2017-03-21 12:19] VITALS: BP 107/67
== END 2017-03-21 12:19 | disposition home or self-care (01) ==
LOC: ER 10:03
DX: J30.89 Other allergic rhinitis (principal); R51 Headache; F17.200 Nicotine dependence, unspecified, uncomplicated
CPT/HCPCS: 99283; J3490 ×2

== ENCOUNTER 2017-03-28 19:44 | Emergency (ER) | payer SELFPAY ==
[2017-03-28] MEDS ORDERED: FAMOTIDINE 20 MG TABLET PO ONE (20:49)
--- NOTE | 2017-03-28 20:51 | ER Document Report ---
HPI - HPI Patient complains to provider of: left upper abdominal pain Pain Level: 2 Context: Patient is a 26 year old male that comes to the ED for chief complaint of having difficulty eating, he states he just finished 2-3 days of vomiting and now he still feels like he can't eat and he has pain in his left upper abdomen ( he indicates the area). He had a cough and shortness of breath but this resolved , he had congestion but this is improving. He smokes. He reports history of headaches and anxiety. Past Medical History - General Information source: Patient - Social History Smoking Status: Current Every Day Smoker Drug Abuse: None Lives with: Alone Family History: Reviewed & Not Pertinent Renal/ Medical History: Denies: Hx Peritoneal Dialysis Psychiatric Medical History: Reports: Hx Bipolar Disorder, Hx Depression Surgical Hx: Negative - Immunizations Hx Diphtheria, Pertussis, Tetanus Vaccination: Yes Vertical Provider Document - CONSTITUTIONAL General Appearance: WD/WN, No Apparent Distress - INFECTION CONTROL TRAVEL OUTSIDE OF THE [place] IN LAST 30 DAYS: No - HEENT HEENT: Atraumatic, Normal ENT Exam, Normocephalic - NECK Neck: Normal Inspection - RESPIRATORY Respiratory: Breath Sounds Normal, No Respiratory Distress O2 Sat by Pulse Oximetry: 100 - CARDIOVASCULAR Cardiovascular: Regular Rate, Regular Rhythm - GI/ABDOMEN Gastrointestinal: Abdomen Soft, Abdomen Non-Tender - BACK Back: Normal Inspection - MUSCULOSKELETAL/EXTREMETIES Musculoskeletal/Extremeties: MAEW, FROM, Non-Tender - NEURO Level of Consciousness: Awake, Alert, Appropriate Course - Re-evaluation Re-evalutation: Clear lungs, well-appearing patient, he indicates his left upper quadrant as the area of discomfort. His nausea and vomiting have reportedly resolved. Chemistry and lipase are normal except for mild hypokalemia, I told patient that he needs to increase potassium in his diet temporarily. Patient given Pepcid, afterwards symptoms resolved, patient eating crackers, states he feels great now. Abdomen exam is completely unremarkable, low suspicion of acute abdomen or emergent AB normality. Vital signs unremarkable. Patient discharged with symptomatic treatment, recommendations, follow-up instructions, return precautions were discussed. Patient states understanding and agreement. - Vital Signs Vital signs: Temp Pulse Resp BP Pulse Ox 98.4 F 98 18 123/73 100 03/28/17 20:05 03/28/17 20:05 03/28/17 20:05 03/28/17 20:05 03/28/17 20:05 - Laboratory Result Diagrams: 03/28/17 20:49 Discharge - Discharge Clinical Impression: Abdominal pain, left upper quadrant Condition: Stable Disposition: HOME, SELF-CARE Additional Instructions: Your lab workup shows slightly low potassium, eat some more in your diet. Take pepcid and carafate to heal gastritis. Continue claratin. Hydrate and rest to complete recovery. Avoid alcohol, smoking, NSAIDs, caffeine, etc while your stomach is recovering. Return to the ED for any concerning symptoms - returned vomiting, severe pain, black stools, etc. Prescriptions: Famotidine [Pepcid 20 mg Tablet] 20 mg PO BID #12 tablet Sucralfate [Carafate 1 gm Tablet] 1 gm PO QID #20 tablet Forms: Return to School
[2017-03-28 21:56] LABS: ALANINE AMINOTRANSFERASE 36 U/L (21-72); ALBUMIN 4.8 g/dL (3.5-5.0); ALKALINE PHOSPHATASE 49 U/L (38-126); ANION GAP 12 (5-19); ASPARTATE AMINO TRANSFERASE 29 U/L (17-59); BILIRUBIN,DIRECT 0.3 mg/dL (0.0-0.4); BILIRUBIN,TOTAL 0.8 mg/dL (0.2-1.3); BLOOD UREA NITROGEN 15 mg/dL (7-20); CALCIUM 9.9 mg/dL (8.4-10.2); CARBON DIOXIDE 25 mmol/L (22-30); CHLORIDE 101 mmol/L (98-107); GLUCOSE 87 mg/dL (75-110); LIPASE 104.4 U/L (23-300); POTASSIUM 3.5 mmol/L (3.6-5.0); SODIUM 137.5 mmol/L (137-145); TOTAL PROTEIN 7.4 g/dL (6.3-8.2)
[2017-03-28 22:16] VITALS: BP 109/69
== END 2017-03-28 22:39 | disposition home or self-care (01) ==
LOC: ER 19:44
DX: R10.12 Left upper quadrant pain (principal); R11.2 Nausea with vomiting, unspecified; F17.200 Nicotine dependence, unspecified, uncomplicated
CPT/HCPCS: 36415; 80053; 83690; 99283

== ENCOUNTER 2017-03-30 22:46 | Emergency (ER) | payer SELFPAY ==
[2017-03-30 23:35] VITALS: BP 118/68
[2017-03-31] MEDS ORDERED: ASPIRIN 81 MG TABLET, CHEWABLE PO ONE (00:07)
--- NOTE | 2017-03-31 00:14 | ER Document Report ---
HPI - HPI Patient complains to provider of: chest pain, neck pain, feels funny Onset: Just prior to arrival Quality of pain: No pain Pain Level: 0 Context: patient presents emergency department with complaints of sitting at home when also and he felt the pain in his neck and pain in his chest he called his mom to come pick him up and was driving to the hospital when his hands became very stiff. Patient reports he just does not feel right. Denies fever vomiting diarrhea. Reports he is over the flu symptoms. Denies cough. Patient denies using IV drugs narcotics. Reports he smokes pot every now and then but has not smoked pot in a long time. Denies history of cardiac disease reports history of bipolar. Is not taking his medication. denies ever using cocaine, crack, heroin, reports he used to snort percocet/vicodin. Associated Symptoms: None Exacerbated by: Denies Relieved by: Denies Similar symptoms previously: No Recently seen / treated by doctor: Yes Past Medical History - General Information source: Patient - Social History Smoking Status: Unknown if Ever Smoked Cigarette use (# per day): No Frequency of alcohol use: None Drug Abuse: Marijuana Occupation: none Lives with: Family Family History: Reviewed & Not Pertinent - ETOH abuse, CAD - grandfather with possible heart failure at 70years old Patient has suicidal ideation: No Patient has homicidal ideation: No Renal/ Medical History: Denies: Hx Peritoneal Dialysis Psychiatric Medical History: Reports: Hx Bipolar Disorder, Hx Depression Surgical Hx: Negative - Immunizations Hx Diphtheria, Pertussis, Tetanus Vaccination: Yes Vertical Provider Document - CONSTITUTIONAL Agree With Documented VS: Yes Exam Limitations: No Limitations General Appearance: WD/WN, No Apparent Distress - nontoxic looking - INFECTION CONTROL TRAVEL OUTSIDE OF THE [place] IN LAST 30 DAYS: No - HEENT HEENT: Atraumatic, Normocephalic. negative: Pharyngeal Exudate, Pharyngeal Tenderness, Pharyngeal Erythema, Tympanic Membrane Red, Tympanic Membrane Bulging - NECK Neck: Normal Inspection, Supple. negative: Lymphadenopathy-Left, Lymphadenopathy-Right - RESPIRATORY Respiratory: Breath Sounds Normal, No Respiratory Distress - no cough, Chest Non -Tender O2 Sat by Pulse Oximetry: 100 - CARDIOVASCULAR Cardiovascular: Regular Rate, Regular Rhythm - GI/ABDOMEN Gastrointestinal: Abdomen Soft, Abdomen Non-Tender - BACK Back: Normal Inspection - MUSCULOSKELETAL/EXTREMETIES Musculoskeletal/Extremeties: SHABANA GARCIA - NEURO Level of Consciousness: Awake, Alert, Appropriate Motor/Sensory: No Motor Deficit - DERM Integumentary: Warm, Dry, No Rash Course - Re-evaluation Re-evalutation: 03/31/17 01:08 Chest x-ray negative EKG sinus rhythm pvc v1 v2 inverted t , suspect panic attack. Patient is now calm. Will be instructed to follow-up with [facility]. Patient will also be instructed to follow-up with [facility] and get back on his bipolar medications. pr reports chest pain gone now 03/31/17 01:[address] wooten regarding t wave inversion v1v2, no further treatment advised - Vital Signs Vital signs: Temp Pulse Resp BP Pulse Ox 97.7 F 94 16 118/68 100 03/30/17 23:32 03/30/17 23:32 03/30/17 23:32 03/30/17 23:32 03/30/17 23:32 - Diagnostic Test Radiology reviewed: Image reviewed, Reports reviewed - Negative - EKG Interpretation by Me EKG shows normal: Sinus rhythm Rate: Normal When compared to previous EKG there are: Changes noted Discharge - Discharge Clinical Impression: Anxiety Chest pain Qualifiers: Chest pain type: unspecified Qualified Code(s): R07.9 - Chest pain, unspecified Condition: Stable Disposition: HOME, SELF-CARE Instructions: Anxiety ([facility]), Chest Pain of Unclear Cause ([facility]) Additional Instructions: *You have been evaluated for chest pain, anxiety *Your chest xray was negative *Follow up with the [facility], call saturday for an appointment *Follow up with [facility] to get back on your bipolar medications *Return to ED for worsening condition, changes, needs *Return to ED if not better in 24 hours
--- NOTE | 2017-03-31 01:05 | RADIOLOGY REPORT (SQ) ---
EXAM DESCRIPTION: CHEST PA/LAT CLINICAL HISTORY: chest pain COMPARISON: None. FINDINGS: Frontal and lateral views of the chest. The cardiomediastinal silhouette has normal size and contour. No consolidation, pneumothorax, or pleural effusion. No displaced rib fractures identified. Upper abdominal soft tissues are unremarkable. IMPRESSION: 1. No acute pulmonary process identified.
--- NOTE | 2017-03-31 12:03 | EKG REPORT ---
SEVERITY:- ABNORMAL ECG - A-FLUTTER W/ PREDOM 4:1 AV BLOCK, A-RATE 293 VENTRICULAR PREMATURE COMPLEX NONSPECIFIC T ABNORMALITIES, ANT-LAT LEADS : Confirmed by: Matilda Salvador MD 31-Mar-2017 12:02:12
== END 2017-03-31 01:35 | disposition home or self-care (01) ==
LOC: ER 22:46
DX: F41.9 Anxiety disorder, unspecified (principal); R07.9 Chest pain, unspecified; M54.2 Cervicalgia
CPT/HCPCS: 71046; 93005; 93010; 99283

== ENCOUNTER 2017-04-02 21:23 | Emergency (ER) | payer SELFPAY ==
[2017-04-02] MEDS ORDERED: NORMAL SALINE 1000 ML 1,000 ML IV ONE (22:35)
--- NOTE | 2017-04-02 22:55 | RADIOLOGY REPORT (SQ) ---
EXAM DESCRIPTION: CT HEAD WITHOUT COMPLETED DATE/TIME: 04/02/2017 10:45 pm REASON FOR STUDY: headache COMPARISON: None. TECHNIQUE: Axial images acquired through the brain without intravenous contrast. Images reviewed wi th bone, brain and subdural windows. Images stored on PACS. All CT scanners at this facility use dose modulation, iterative reconstruction, and/or weight based d osing when appropriate to reduce radiation dose to as low as reasonably achievable (ALARA). [facility]: Dose Right [facility]: CareDose [facility]: Dose Right [facility]: Teradose 4D [facility]: Exposed Vocals RADIATION DOSE: mGy. LIMITATIONS: None. FINDINGS: VENTRICLES: Normal size and contour. CEREBRUM: No mass effect. No hemorrhage. No midline shift. Normal montoya/white matter differentiatio n. No evidence for acute territorial infarction. CEREBELLUM: No mass effect. No hemorrhage. No alteration of density. No evidence for acute infarct ion. EXTRAAXIAL SPACES: No fluid collections. ORBITS AND GLOBE: Symmetrical contour of the globes. CALVARIUM: No depressed skull fracture. PARANASAL SINUSES: No air-fluid level. SOFT TISSUES: No hematoma. IMPRESSION: No acute intracranial hemorrhage or acute territorial infarct. EVIDENCE OF ACUTE STROKE: NO. COMMENT: Quality ID # [id number]: Final reports with documentation of one or more dose reduction techniques (e.g., Automated exposure control, adjustment of the mA and/or kV according to patient size, use of iterative reconstruction technique) TECHNICAL DOCUMENTATION: JOB ID: [id number] [place]-[id number] 2010 [employer]- All Rights Reserved
[2017-04-02] MEDS ORDERED: KETOROLAC TROMETHAMINE INJ/PF 30 MG/1 ML SDV IV ONE (23:30)
[2017-04-02] MEDS ORDERED: ONDANSETRON HCL INJ/PF 4 MG/2 ML SDV IV ONE (23:53)
[2017-04-02] MEDS ORDERED: LORAZEPAM INJ 2 MG/1 ML VIAL IV ONE (23:55)
--- NOTE | 2017-04-03 01:25 | ER Document Report ---
ED General - General Chief Complaint: Headache Stated Complaint: POSSIBLE HEADACHE Time Seen by Provider: 04/02/17 22:08 Notes: Patient is a 26-year-old male presents with complaint of headaches been off and on for 2 weeks. He is also had some runny nose congestion and cough. No fevers. No vomiting. No diarrhea. He also has history of anxiety and has some nausea. She denies any focal weakness or numbness. He denies any history of head trauma. Patient says the pain and pressure is mostly over the left side of his face. He points to his left zygomatic arch and the forehead. TRAVEL OUTSIDE OF THE [place] IN LAST 30 DAYS: No - Related Data Allergies/Adverse Reactions: No Known Allergies Allergy (Verified 04/02/17 21:24) Past Medical History - Social History Smoking Status: Unknown if Ever Smoked Frequency of alcohol use: None Drug Abuse: None Family History: Reviewed & Not Pertinent - ETOH abuse, CAD - grandfather with possible heart failure at 70years old Patient has suicidal ideation: No Patient has homicidal ideation: No Renal/ Medical History: Denies: Hx Peritoneal Dialysis Psychiatric Medical History: Reports: Hx Bipolar Disorder, Hx Depression - Immunizations Hx Diphtheria, Pertussis, Tetanus Vaccination: Yes Review of Systems - Review of Systems Notes: My Normal Review Basic REVIEW OF SYSTEMS: CONSTITUTIONAL : Cold like symptoms. EENT: Nasal congestion CARDIOVASCULAR: Denies chest pain. RESPIRATORY: Denies cough, cold, or chest congestion. Denies shortness of breath, difficulty breathing, or wheezing. GASTROINTESTINAL: Denies abdominal pain. Occasional vomiting GENITOURINARY: Denies difficulty urinating, painful urination, burning, frequency, or blood in urine. MUSCULOSKELETAL: Denies neck or back pain or joint pain or swelling. SKIN: Denies rash or skin lesions. NEUROLOGICAL: Denies altered mental status or loss of consciousness. Intermittent headache. Denies weakness or paralysis or loss of use of either side. Denies problems with gait or speech. Denies sensory or motor loss. ALL OTHER SYSTEMS REVIEWED AND NEGATIVE. Physical Exam - Vital signs Vitals: Temp Pulse Resp BP Pulse Ox 98.5 F 69 16 119/74 100 04/02/17 21:54 04/02/17 21:54 04/02/17 21:54 04/02/17 21:54 04/02/17 21:54 - Notes Notes: General Appearance: Well nourished, alert, cooperative, no acute distress, no obvious discomfort. Anxious appearing. Vitals: reviewed, See vital signs table. Head: no swelling or tenderness to the head Eyes: PERRL, EOMI, Conjuctiva clear Mouth: No decreasd moisture Throat: No tonsillar inflammation, No airway obstruction, No lymphadenopathy Neck: Supple, no neck tenderness, No thyromegaly Lungs: No wheezing, No rales, No rhonci, No accessory muscle use, good air exchange bilaterally. Heart: Normal rate, Regular rythm, No murmur, no rub Abdomen: Normal BS, soft, No rigidity, No abdominal tenderness, No guarding, no rebound, no abdominal masses, no organomegaly Extremities: strength 5/5 in all extremities, good pulses in all extremities, no swelling or tenderness in the extremities, no edema. Skin: warm, dry, appropriate color, no rash Neuro: speech clear, oriented x 3, normal affect, responds appropriately to questions. Renal nerves II through XII are intact. Distal sensation intact. Patient moves all tremors without difficulty. Normal gait. Course - Re-evaluation Re-evalutation: 04/03/17 05:57 Patient's history suggests that he most likely has sinus pressure related to his headaches. Being that he has some vomiting earlier and he is having these recurrent headaches for 2 weeks and did obtain a CT scan. CT scan is negative. Is no evidence of large mass or tumor. Patient denies any fever last few days. Seems that his vomiting is more related to anxiety. Became nauseous when he became anxious during his stay in the ER. After I treat his anxiety the nausea went away. Also he is also mentioned that he was hungry. He did eat crackers and felt a lot better. Patient looks well and I feel safe to be discharged home. I strongly encourage him return to ER immediately if he has worsening headache, fevers, recurrent vomiting, or feels unwell. Patient agrees with plan and will be discharged home. Dictation of this chart was performed using voice recognition software; therefore, there may be some unintended grammatical errors. - Vital Signs Vital signs: Temp Pulse Resp BP Pulse Ox 98.6 F 72 16 122/87 H 96 04/03/17 01:59 04/03/17 01:59 04/02/17 21:54 04/03/17 01:59 04/03/17 01:59 Discharge - Discharge Clinical Impression: Headache Qualifiers: Headache type: unspecified Headache chronicity pattern: episodic headache Intractability: not intractable Qualified Code(s): R51 - Headache Condition: Good Disposition: HOME, SELF-CARE Additional Instructions: Please take Tylenol and Motrin for your headache. I have also prescribed Phenergan. This is a nausea medicine but it also helps with headaches. This medicine can make you sleepy so do not drive or operate machinery after taking it. Please return to the ER if you have worsening of your symptoms or feel unwell. Please follow up with your doctor tomorrow for reevaluation. Your Ct scan today was normal. Prescriptions: Promethazine HCl [Phenergan 25 mg Tablet] 1 tab PO Q6H PRN #15 tablet PRN Reason:
[2017-04-03 01:59] VITALS: BP 122/87
== END 2017-04-03 01:59 | disposition home or self-care (01) ==
LOC: ER 21:23
DX: R51 Headache (principal); R05 Cough; F41.9 Anxiety disorder, unspecified
CPT/HCPCS: 99284; 96361; 96374; 96375; 70450; J1885; J2060; J2405; J7030

== ENCOUNTER → 2017-06-21 | Outpatient (CLI) | payer OTHER ==
[2017-06-21 12:08] LABS: ABSOLUTE EOSINOPHILS # (AUTO) 0.1 10^3/uL (0.0-0.6); ABSOLUTE LYMPHOCYTES (AUTO) 1.5 10^3/uL (0.5-4.7); ABSOLUTE MONOCYTES (AUTO) 0.5 10^3/uL (0.1-1.4); ABSOLUTE NEUT (AUTO) 2.9 10^3/uL (1.7-8.2); BASOPHILS % (AUTO) 0.6 % (0-2); EOSINOPHILS % (AUTO) 1.7 % (0-6); HEMATOCRIT 41.4 % (37.9-51.0); HEMOGLOBIN 14.6 g/dL (13.5-17.0); LYMPHOCYTES % (AUTO) 30.3 % (13-45); MEAN CORPUSCULAR HEMOGLOBIN 33.6 pg (27.0-33.4); MEAN CORPUSCULAR HGB CONC 35.4 g/dL (32.0-36.0); MEAN CORPUSCULAR VOLUME 95 fl (80-97); MONOCYTES % (AUTO) 10.4 % (3-13); PLATELET COUNT 231 10^3/uL (150-450); RED BLOOD COUNT 4.35 10^6/uL (4.35-5.55); RED CELL DISTRIBUTION WIDTH 11.7 % (11.5-14.0); TOTAL CELLS COUNTED % (AUTO) 100 %
[2017-06-21 12:28] LABS: ALANINE AMINOTRANSFERASE 32 U/L (21-72); ALBUMIN 4.7 g/dL (3.5-5.0); ALKALINE PHOSPHATASE 39 U/L (38-126); ANION GAP 12 (5-19); ASPARTATE AMINO TRANSFERASE 20 U/L (17-59); BILIRUBIN,DIRECT 0.2 mg/dL (0.0-0.4); BILIRUBIN,TOTAL 0.4 mg/dL (0.2-1.3); BLOOD UREA NITROGEN 8 mg/dL (7-20); CALCIUM 9.6 mg/dL (8.4-10.2); CARBON DIOXIDE 32 mmol/L (22-30); CHLORIDE 99 mmol/L (98-107); GLUCOSE 94 mg/dL (75-110); POTASSIUM 4.3 mmol/L (3.6-5.0); SODIUM 142.5 mmol/L (137-145); TOTAL PROTEIN 7.6 g/dL (6.3-8.2)
== END ==
LOC: OD 11:30
PROVIDERS: ATTEND Psychiatry & Neurology Psychiatry
DX: F31.9 Bipolar disorder, unspecified (principal); F41.0 Panic disorder [episodic paroxysmal anxiety]; F41.1 Generalized anxiety disorder; F90.0 Attention-deficit hyperactivity disorder, predominantly inattentive type
CPT/HCPCS: 36415; 80053; 84443; 85025

== ENCOUNTER 2017-07-02 17:26 | Emergency (ER) | payer OTHER ==
[2017-07-02 17:36] VITALS: BP 112/75
--- NOTE | 2017-07-02 18:11 | ER Document Report ---
ED General - General Chief Complaint: Anxiety Stated Complaint: SEVERE WEAKNESS Time Seen by Provider: 07/02/17 17:57 Notes: Patient is a 26-year-old male, past medical history anxiety, presents feeling very anxious. He has propranolol at home, but he did not take any because he is trying to get off all of his medications. He is concerned that someone laced his weed with methamphetamines. He has not told his mental health team at [facility] that he does not like taking medications. He denies caffeine abuse, chest pain, syncope, hallucinations, SI or HI. TRAVEL OUTSIDE OF THE [place] IN LAST 30 DAYS: No - Related Data Allergies/Adverse Reactions: No Known Allergies Allergy (Verified 07/02/17 17:30) Home Medications: propanolol Past Medical History - General Information source: Patient - Social History Smoking Status: Former Smoker Chew tobacco use (# tins/day): No Frequency of alcohol use: None Drug Abuse: Marijuana Family History: Reviewed & Not Pertinent - ETOH abuse, CAD - grandfather with possible heart failure at 70years old Patient has suicidal ideation: No Patient has homicidal ideation: No Renal/ Medical History: Denies: Hx Peritoneal Dialysis Psychiatric Medical History: Reports: Hx Bipolar Disorder, Hx Depression - Immunizations Hx Diphtheria, Pertussis, Tetanus Vaccination: Yes Review of Systems - Review of Systems Notes: REVIEW OF SYSTEMS: CONSTITUTIONAL: -fevers, -chills EENT: -eye pain, -difficulty swallowing, -nasal congestion CARDIOVASCULAR: -chest pain, -syncope. RESPIRATORY: -cough, -SOB GASTROINTESTINAL: -abdominal pain, -nausea, -vomiting, -diarrhea GENITOURINARY: -dysuria, -hematuria MUSCULOSKELETAL: -back pain, -neck pain SKIN: -rash or skin lesions. HEMATOLOGIC: -easy bruising or bleeding. LYMPHATIC: -swollen, enlarged glands. NEUROLOGICAL: -altered mental status or loss of consciousness, -headache, - neurologic symptoms PSYCHIATRIC: +anxiety, -depression. ALL OTHER SYSTEMS REVIEWED AND NEGATIVE. Physical Exam - Vital signs Vitals: Temp Pulse Resp BP Pulse Ox 98.2 F 107 H 18 112/75 99 07/02/17 17:34 07/02/17 17:34 07/02/17 17:34 07/02/17 17:34 07/02/17 17:34 - Notes Notes: PHYSICAL EXAMINATION: GENERAL: Well-appearing, well-nourished and in no acute distress. HEAD: Atraumatic, normocephalic. EYES: Pupils equal round and reactive to light, extraocular movements intact, sclera anicteric, conjunctiva are normal. ENT: nares patent, oropharynx clear without exudates. Moist mucous membranes. NECK: Normal range of motion, supple without lymphadenopathy LUNGS: Breath sounds clear to auscultation bilaterally and equal. No wheezes rales or rhonchi. HEART: Mild tachycardia, regular rhythm ABDOMEN: Soft, nontender, normoactive bowel sounds. No guarding, no rebound. No masses appreciated. EXTREMITIES: Normal range of motion, no pitting or edema. No cyanosis. NEUROLOGICAL: Cranial nerves grossly intact. Normal speech, normal gait. Normal sensory and motor exams. PSYCH: Anxious mood. SKIN: Warm, Dry, normal turgor, no rashes or lesions noted. Course - Re-evaluation Re-evalutation: Patient appears much less anxious and he took his propranolol in the ER. He is asking if we can test his weed to see if it is laced with methamphetamines. Told him that he should not be using weed if he has any concerns about if it is laced. He is not SI or HI. Patient with a known history of anxiety. Will discharge home with follow-up at [facility], where he follows for his mental health care. - Vital Signs Vital signs: Temp Pulse Resp BP Pulse Ox 98.2 F 107 H 18 112/75 99 07/02/17 17:34 07/02/17 17:34 07/02/17 17:34 07/02/17 17:34 07/02/17 17:34 Discharge - Discharge Clinical Impression: Anxiety Condition: Stable Disposition: HOME, SELF-CARE Instructions: Anxiety ([facility]) Additional Instructions: Stop smoking weed and use propranolol as directed by mental health team. Anxiety The physician feels that some of your health problems are being caused by anxiety. Anxiety affects your health in many ways. Anxiety alone can cause palpitations, sweats, chest pains, abdominal pains, shortness of breath, and headaches. It contributes to ulcer disease, high blood pressure, irritable bowel syndrome, and has been shown to cause flare-ups of many other diseases. Anxiety is not a simple disorder to treat. If the anxiety is due to recent life stresses, you may simply need time to "work through" the changes. If the anxiety is due to an underlying unhappiness with yourself or due to psychiatric disturbance, professional help will be needed. Your physician can refer you for further help if needed. Anti-anxiety medication is occasionally given if the stress is acute or if you are having trouble sleeping. Chronic or frequent use of these medications is not a good idea because the body becomes reliant on it, preventing you from dealing with life's normal stresses. [facility] [[facility]] - Follow up as needed
== END 2017-07-02 18:11 | disposition home or self-care (01) ==
LOC: ER 17:26
DX: F41.9 Anxiety disorder, unspecified (principal); F12.10 Cannabis abuse, uncomplicated; R00.0 Tachycardia, unspecified; Z87.891 Personal history of nicotine dependence
CPT/HCPCS: 99283

== ENCOUNTER 2017-10-26 04:35 | Emergency (ER) | payer OTHER ==
--- NOTE | 2017-10-26 05:04 | ER Document Report ---
ED Psych Disorder / Suicide - General Mode of Arrival: Ambulatory Information source: Patient TRAVEL OUTSIDE OF THE [place] IN LAST 30 DAYS: No <JUAN PABLO PAYNE - Last Filed: 10/26/17 04:59> <GAGE BOURGEOIS - Last Filed: 10/26/17 05:52> - General Chief Complaint: Suicidal Ideation Stated Complaint: HEADACHES,SUICIDAL THOUGHTS Time Seen by Provider: 10/26/17 04:40 Notes: 27-year-old male who presents to the emergency department today with complaints of suicidal ideation. Patient states he was started on Zoloft 2 or 3 days ago and he believes the medication is making him feel sleepy. Patient states he has "been feeling down and thinking about ". Patient states he does not have any specific plan but the "imagery of is not pleasant". Patient states he recently was taken off of propanolol due to lowering his heart rate. ( JUAN PABLO PAYNE) - Related Data Allergies/Adverse Reactions: No Known Allergies Allergy (Verified 10/26/17 04:37) Past Medical History - General Information source: Patient - Social History Smoking Status: Never Smoker Cigarette use (# per day): No Frequency of alcohol use: None Drug Abuse: None Lives with: Family Family History: Reviewed & Not Pertinent - ETOH abuse, CAD - grandfather with possible heart failure at 70years old Renal/ Medical History: Denies: Hx Peritoneal Dialysis Psychiatric Medical History: Reports: Hx Bipolar Disorder, Hx Depression - Immunizations Hx Diphtheria, Pertussis, Tetanus Vaccination: Yes <JUAN PABLO PAYNE - Last Filed: 10/26/17 04:59> Review of Systems - Review of Systems Constitutional: No symptoms reported EENT: No symptoms reported Cardiovascular: No symptoms reported Respiratory: No symptoms reported Gastrointestinal: No symptoms reported Genitourinary: No symptoms reported Male Genitourinary: No symptoms reported Musculoskeletal: No symptoms reported Skin: No symptoms reported Hematologic/Lymphatic: No symptoms reported Neurological/Psychological: See HPI, Suicidal ideation -: Yes All other systems reviewed and negative <JUAN PABLO PAYNE - Last Filed: 10/26/17 04:59> Physical Exam - Vital signs Interpretation: Normal - General General appearance: Appears well, Alert - HEENT Head: Normocephalic, Atraumatic Eyes: Normal Pupils: PERRL Mucous membranes: Dry - Respiratory Respiratory status: No respiratory distress Chest status: Nontender Breath sounds: Normal Chest palpation: Normal - Cardiovascular Rhythm: Regular Heart sounds: Normal auscultation Murmur: No - Abdominal Inspection: Normal Distension: No distension Bowel sounds: Normal Tenderness: Nontender Organomegaly: No organomegaly - Back Back: Normal, Nontender - Extremities General upper extremity: Normal inspection, Nontender, Normal color, Normal ROM , Normal temperature General lower extremity: Normal inspection, Nontender, Normal color, Normal ROM , Normal temperature, Normal weight bearing. No: Poonam's sign - Neurological Neuro grossly intact: Yes Cognition: Normal Orientation: AAOx4 [place] Coma Scale Eye Opening: Spontaneous Patrick Coma Scale Verbal: Oriented Patrick Coma Scale Motor: Obeys Commands Patrick Coma Scale Total: 15 Speech: Normal Motor strength normal: LUE, RUE, LLE, RLE Sensory: Normal - Psychological Associated symptoms: Flat affect, Unable to sleep, Other - Suicidal ideation - Skin Skin Temperature: Warm Skin Moisture: Dry Skin Color: Normal <GAGE BOURGEOIS - Last Filed: 10/26/17 05:52> - Vital signs Vitals: Temp Pulse Resp BP Pulse Ox 98.0 F 85 20 134/80 H 100 10/26/17 04:37 10/26/17 04:37 10/26/17 04:37 10/26/17 04:37 10/26/17 04:37 Course <JUAN PABLO PAYNE - Last Filed: 10/26/17 04:59> - Laboratory Result Diagrams: 10/26/17 05:00 10/26/17 05:00 <GAGE BOURGEOIS - Last Filed: 10/26/17 05:52> - Re-evaluation Re-evalutation: 10/26/17 05:51 Patient is a 27-year-old male who comes in complaining of suicidal ideation. Also states that he was recently started on Zoloft and thinks that he is having a hard time tolerating it and is making him nauseated. He does not want anything for nausea today. He is hungry and would like something to eat. Blood work within normal limits. Patient is ketones on his urine will be given IV fluids. Otherwise he will be held for mental health evaluation. Agreeable to this plan. Medically stable. (GAGE BOURGEOIS) - Vital Signs Vital signs: Temp Pulse Resp BP Pulse Ox 98.0 F 85 20 134/80 H 100 10/26/17 04:37 10/26/17 04:37 10/26/17 04:37 10/26/17 04:37 10/26/17 04:37 - Laboratory Laboratory results interpreted by me: 10/26/17 10/26/17 10/26/17 04:55 05:00 05:00 MCH 33.7 H MCHC 36.1 H BUN 6 L Urine Ketones 80 H Salicylates < 1.0 L Acetaminophen < 10 L Discharge <JUAN PABLO PAYNE - Last Filed: 10/26/17 04:59> <GAGE BOURGEOIS - Last Filed: 10/26/17 05:52> - Discharge Clinical Impression: Suicidal ideation Condition: Stable Disposition: OTHER Scribe Attestation: 10/26/17 05:52 I personally performed the services described in the documentation, reviewed and edited the documentation which was dictated to the scribe in my presence, and it accurately records my words and actions. (GAGE BOURGEOIS) Scribe Documentation - Scribe Written by Maicol:: Maicol Cross, 10/26/2017 0503 acting as scribe for :: Jovany <JUAN PABLO PAYNE - Last Filed: 10/26/17 04:59>
[2017-10-26 05:18] LABS: ABSOLUTE BASOPHILS # (AUTO) 0.1 10^3/uL (0.0-0.2); ABSOLUTE LYMPHOCYTES (AUTO) 1.6 10^3/uL (0.5-4.7); ABSOLUTE MONOCYTES (AUTO) 0.6 10^3/uL (0.1-1.4); ABSOLUTE NEUT (AUTO) 2.3 10^3/uL (1.7-8.2); BASOPHILS % (AUTO) 1.5 % (0-2); EOSINOPHILS % (AUTO) 0.6 % (0-6); HEMATOCRIT 42.6 % (37.9-51.0); HEMOGLOBIN 15.4 g/dL (13.5-17.0); LYMPHOCYTES % (AUTO) 34.8 % (13-45); MEAN CORPUSCULAR HEMOGLOBIN 33.7 pg (27.0-33.4); MEAN CORPUSCULAR HGB CONC 36.1 g/dL (32.0-36.0); MEAN CORPUSCULAR VOLUME 93 fl (80-97); MONOCYTES % (AUTO) 12.6 % (3-13); PLATELET COUNT 256 10^3/uL (150-450); RED BLOOD COUNT 4.57 10^6/uL (4.35-5.55); RED CELL DISTRIBUTION WIDTH 11.9 % (11.5-14.0); SEGMENTED NEUTROPHILS % (AUTO) 50.5 % (42-78); TOTAL CELLS COUNTED % (AUTO) 100 %; WHITE BLOOD COUNT 4.6 10^3/uL (4.0-10.5)
[2017-10-26 05:19] LABS: APPEARANCE,URINE CLEAR; BILIRUBIN,URINE NEGATIVE (NEGATIVE); COLOR,URINE YELLOW; GLUCOSE, URINE NEGATIVE (NEGATIVE); KETONES,URINE 80 mg/dL (NEGATIVE); LEUKOCYTE ESTERASE,URINE NEGATIVE (NEGATIVE); NITRITE,URINE NEGATIVE (NEGATIVE); PROTEIN,URINE NEGATIVE (NEGATIVE); URINE SPECIFIC GRAVITY 1.014; UROBILINOGEN,URINE NEGATIVE mg/dL (<2.0)
[2017-10-26 05:37] LABS: ALANINE AMINOTRANSFERASE 29 U/L (21-72); ALBUMIN 4.9 g/dL (3.5-5.0); ALKALINE PHOSPHATASE 48 U/L (38-126); ANION GAP 16 (5-19); ASPARTATE AMINO TRANSFERASE 21 U/L (17-59); BILIRUBIN,DIRECT 0.2 mg/dL (0.0-0.4); BILIRUBIN,TOTAL 1.3 mg/dL (0.2-1.3); BLOOD UREA NITROGEN 6 mg/dL (7-20); CALCIUM 9.6 mg/dL (8.4-10.2); CARBON DIOXIDE 23 mmol/L (22-30); CHLORIDE 102 mmol/L (98-107); GLUCOSE 87 mg/dL (75-110); POTASSIUM 3.8 mmol/L (3.6-5.0); SODIUM 140.6 mmol/L (137-145); TOTAL PROTEIN 8.2 g/dL (6.3-8.2)
[2017-10-26 05:38] LABS: URINE AMPHETAMINES SCREEN NEGATIVE; URINE BARBITURATES SCREEN NEGATIVE; URINE BENZODIAZEPINES SCREEN NEGATIVE; URINE COCAINE SCREEN NEGATIVE; URINE MARIJUANA (THC) SCREEN NEGATIVE; URINE METHADONE SCREEN NEGATIVE; URINE PHENCYCLIDINE SCREEN NEGATIVE
[2017-10-26 05:39] LABS: ACETAMINOPHEN < 10 ug/mL (10-30); ALCOHOL < 10 mg/dL (NONE DETECTED); SALICYLATE < 1.0 mg/dL (2.0-20.0)
[2017-10-26] MEDS ORDERED: NORMAL SALINE 1000 ML 1,000 ML IV ONE (05:40)
--- NOTE | 2017-10-26 09:29 | EKG REPORT ---
SEVERITY:- ABNORMAL ECG - SINUS RHYTHM NONSPECIFIC T ABNORMALITIES, ANT-LAT LEADS : Confirmed by: Yahaira Rendon 26-Oct-2017 09:29:23
[2017-10-26] MEDS ORDERED: OLANZAPINE 2.5 MG TABLET PO ONE (12:03)
[2017-10-26 14:11] VITALS: BP 97/55
--- NOTE | 2017-10-28 19:33 | PSYCHOLOGICAL NOTE ---
Psych Note - Psych Note Psych Note: Reason for Consult: Suicidal Ideation Consent Permissions: patient's mother at bedside, 27-year-old male who presents to the emergency department today with complaints of suicidal ideation. Patient states he was started on Zoloft 2 or 3 days ago and he believes the medication is making him feel sleepy. Patient states he has "been feeling down and thinking about ". Patient states he does not have any specific plan but the "imagery of is not pleasant". Patient states he recently was taken off of propanolol due to lowering his heart rate. Patient states that he saw Dr. Potter at [facility] about 1.5 weeks ago and they prescribed him Zoloft because he could not afford Lexapro. Pt states that he had no problems on the 1st 2 days he was on it. But then on the 3rd day, he started seeing images of . Could not articulate any specific details or time frame, or any people/things involved. Patient is not currently hallucinating. Past diagnosis of bipolar disorder per patient report. Patient's mom states that patient has been having trouble sleeping over the last few days. Mom states that patient has never had any problems with his medication before and that this incident is a surprise to her. Mom does report that patient does see his outpatient provider on a regular basis and follows his medication regimen. Patient is alert and orientated to person, place, time and circumstance. Mood is euthymic. Patient is calm and cooperative. Patient denies suicidal ideation. Delusions are absent and behaviors are congruent with an intact reality based presentation. Conversational speech was within normal rate, tone and prosody. Intellectual abilities are in the average range. Attention and concentration are good. Insight, judgment, impulse control are good. Medication recommendations per [facility]'s contracted psychiatrist Dr. Sonal CARVALHO are as follows Discontinue Zoloft Zyprexa 2.5 mg twice a day Diagnosis 300.00 (F41.9) Unspecified Anxiety Disorder per history provided by the patient Impression/Plan: Patient is cleared from acute psychiatric services. Patient denies any suicidal or homicidal ideation. No current hallucinations. No Delusions. Patient is current with his visits to his outpatient provider and plans to follow up and let them know about this visit. Dr. López was consulted in the care and management of this patient; attending physician is in agreement with recommendations and disposition.
== END 2017-10-26 14:11 | disposition home or self-care (01) ==
LOC: ER 04:35
DX: R45.851 Suicidal ideations (principal); R51 Headache
CPT/HCPCS: 93005; 99285; 96360; 36415; 80307 ×4; 85025; 80053; 81001; 93010; J3490; J7030

== ENCOUNTER 2017-11-12 07:29 | Emergency (ER) | payer OTHER ==
[2017-11-12] MEDS ORDERED: KETOROLAC TROMETHAMINE INJ/PF 30 MG/1 ML SDV IV ONE (08:13)
[2017-11-12] MEDS ORDERED: LIDOCAINE 5% (700 MG) TRANSDERMAL ADH..PATCH TP ONE (08:13)
[2017-11-12] MEDS ORDERED: ONDANSETRON 4 MG TAB.RAPDIS PO ONE (08:13)
--- NOTE | 2017-11-12 08:16 | ER Document Report ---
HPI - HPI Pain Level: 3 Notes: Patient is a 27-year-old male who presents to the ED complaining of right mid back pain 1 day. Patient states that he started having back spasms in that area last evening when he was sitting upright playing video games. Patient states that at work he is constantly standing still with his lower body and twisting his upper body. Patient states that he has had these symptoms in the past. Patient states that when the spasms start the pain causes him to have some nausea and he vomited 3 times. Patient states that he otherwise does not feel sick. Patient states that this is all coming from his back because of the muscle spasming. He is still able to eat and drink without any difficulties. He is urinating normally and having normal bowel movements. Patient currently does not have any nausea. The pain does not radiate. He has not had any injections or procedures to his back. Denies any headache, fever, URI, sore throat, chest pain, palpitations, syncope, cough, shortness of breath, wheeze, dyspnea, abdominal pain, nausea/vomiting/diarrhea, urinary retention, dysuria, hematuria, loss of control of bowel or bladder, numbness/tingling, saddle anesthesia, muscle paralysis/weakness, or rash. - ROS Systems Reviewed and Negative: Yes All other systems reviewed and negative Past Medical History - Social History Smoking Status: Unknown if Ever Smoked Family History: Reviewed & Not Pertinent - ETOH abuse, CAD - grandfather with possible heart failure at 70years old Renal/ Medical History: Denies: Hx Peritoneal Dialysis Psychiatric Medical History: Reports: Hx Bipolar Disorder, Hx Depression - Immunizations Hx Diphtheria, Pertussis, Tetanus Vaccination: Yes Vertical Provider Document - CONSTITUTIONAL Agree With Documented VS: Yes Notes: PHYSICAL EXAMINATION: GENERAL: Well-appearing, well-nourished and in no acute distress. LUNGS: Breath sounds clear to auscultation bilaterally and equal. No wheezes rales or rhonchi. HEART: Regular rate and rhythm without murmurs, rubs, gallops. ABDOMEN: Soft, nontender, nondistended abdomen. No guarding, no rebound. No masses appreciated. Normal bowel sounds present. No CVA tenderness bilaterally. No pulsatile mass Musculoskeletal: LE's b/l: FROM to passive/active. Strength 5+/5. No deficits noted. No bony tenderness of extremities. Back: FROM to passive/active. Strength 5+/5. No vertebral point tenderness, stepoffs, or deformities. No other bony tenderness, erythema, swelling, or ecchymosis. SLR negative b/l. + mild tenderness to the Rt T-paraspinal mm with trigger point and mild spasming--correlates with pain described. No SI jt tenderness. No foot drop Extremities: No cyanosis, clubbing, or edema b/l. Peripheral pulses 2+. Capillary refill less than 2 seconds. NEUROLOGICAL: Normal speech, normal gait. Normal sensory, motor exams. Reflexes 2+ b/l. PSYCH: Normal mood, normal affect. SKIN: Warm, Dry, normal turgor, no rashes or lesions noted. - INFECTION CONTROL TRAVEL OUTSIDE OF THE [place] IN LAST 30 DAYS: No Course - Re-evaluation Re-evalutation: 11/12/17 09:11 Patient is an afebrile, well-hydrated, 27-year-old male who presents to the ED with Rt thoracic back pain, suspect spasming. Vitals are acceptable. PE is otherwise unremarkable for any focal neurological deficits. Patient's abdomen is soft and nontender throughout. Patient was given Toradol and Lidoderm patch. He has no significant tachycardia, tachypnea, or hypoxia. He is nontoxic-appearing and is tolerating p.o. without difficulties. There are no signs of back infection. No other red flag symptoms noted. No other labs or imaging warranted at this time based on H&P. Pt only has nausea when his back starts to spasm. Currently asymptomatic. Low suspicion for any acute abdomen, meningitis, fracture, expanding/ruptured AAA, cauda equina syndrome, epidural mass lesion/abscess, herniated disc causing severe spinal stenosis, or other systemic infection at this time. Patient is aware that his condition can change from initial presentation and that he needs monitor symptoms closely for any acute changes. I will send him home with a prescription for baclofen and naproxen. Conservative measures otherwise for symptoms. Recheck with your PCM in 3-5 days. Consider consult with orthopedic/physical therapy. Return to the ED with any worsening/concerning symptoms otherwise as reviewed discharge. Patient is in agreement. - Vital Signs Vital signs: Temp Pulse Resp BP Pulse Ox 98.1 F 98 16 110/70 100 11/12/17 07:33 11/12/17 07:33 11/12/17 07:33 11/12/17 07:33 11/12/17 07:33 Discharge - Discharge Clinical Impression: Thoracic back pain Qualifiers: Chronicity: acute Back pain laterality: right Qualified Code(s): M54.6 - Pain in thoracic spine Condition: Stable Disposition: HOME, SELF-CARE Instructions: Muscle Relaxers ([facility]) Additional Instructions: Rest, Ice, Compression Tylenol/ibuprofen as needed Light stretches daily Strength exercises as able Moist heat and massage may help F/u with your PCP in 3-5 days for a recheck Consider consult(s) with Orthopedics/physical therapy for ongoing/worsening symptoms Return to the ED with any worsening symptoms and/or development of fever, headache, chest pain, palpitations, syncope, shortness of breath, trouble breathing, abdominal pain, n/v/d, blood in stool/urine, loss of control of bowel /bladder, urinary retention, muscle weakness/paralysis, saddle anesthesia, numbness/tingling, or other worsening symptoms that are concerning to you. Prescriptions: Baclofen [Baclofen 10 mg Tablet] 5 - 10 mg PO BID PRN #10 tablet PRN Reason: Lidocaine [Lidoderm] 1 each TP DAILY #10 adh..patch Naproxen 500 mg PO BID PRN #30 tablet PRN Reason: Referrals: [facility] [Provider Group] - Follow up as needed
[2017-11-12] MEDS ORDERED: NORMAL SALINE 1000 ML 1,000 ML IV ONE (08:20)
[2017-11-12] MEDS ORDERED: ONDANSETRON HCL INJ/PF 4 MG/2 ML SDV IV ONE (08:21)
[2017-11-12 09:32] VITALS: BP 99/49
== END 2017-11-12 09:31 | disposition home or self-care (01) ==
LOC: ER 07:29
DX: M54.6 Pain in thoracic spine (principal); M62.830 Muscle spasm of back; M54.9 Dorsalgia, unspecified; R11.2 Nausea with vomiting, unspecified; X50.1XXA Overexertion from prolonged static or awkward postures, initial encounter
CPT/HCPCS: 99283; 96361; 96374; 96375; J1885; J2405; J7030

== ENCOUNTER 2017-11-13 10:42 | Emergency (ER) | payer OTHER ==
--- NOTE | 2017-11-13 10:48 | ER Document Report ---
HPI - HPI Patient complains to provider of: Need Zyprexa Onset: Other - Last dose 2 days ago Pain Level: Denies Context: 27-year-old male that has bipolar disorder ran out of Zyprexa 2 days ago. He is supposed to take 2.5 mg twice a day but he was only taking it 2.5 mg a day because he has not had a primary care or psychiatric follow-up appointment after he was seen in the emergency department in late October. He feels stable in mood on the 2.5 mg. No depression or suicide ideation. He was in the emergency yesterday for back spasms and that was resolved. He is here with his mother. [facility] is open until 3 PM today. Associated Symptoms: None Exacerbated by: Denies Relieved by: Denies Similar symptoms previously: No Recently seen / treated by doctor: No - ROS ROS below otherwise negative: Yes Systems Reviewed and Negative: Yes All other systems reviewed and negative Past Medical History - General Information source: Patient - Social History Smoking Status: Unknown if Ever Smoked Lives with: Parents Family History: Reviewed & Not Pertinent - ETOH abuse, CAD - grandfather with possible heart failure at 70years old - Medical History Medical History: Negative Renal/ Medical History: Denies: Hx Peritoneal Dialysis Psychiatric Medical History: Reports: Hx Bipolar Disorder, Hx Depression - Immunizations Hx Diphtheria, Pertussis, Tetanus Vaccination: Yes Vertical Provider Document - CONSTITUTIONAL Agree With Documented VS: Yes Exam Limitations: No Limitations - INFECTION CONTROL TRAVEL OUTSIDE OF THE [place] IN LAST 30 DAYS: No - HEENT HEENT: Normocephalic - NECK Neck: Supple - NEURO Level of Consciousness: Awake, Alert, Appropriate Discharge - Discharge Clinical Impression: Medication refill, bipolar disorder Condition: Good Disposition: ADMITTED INPATIENT Instructions: Bipolar Disorder ([facility]) Additional Instructions: Schedule an appointment for refill on the Zyprexa since that is working for you Return to the emergency room any concerns Prescriptions: Olanzapine [Zyprexa 2.5 Mg Tablet] 2.5 mg PO BID #20 tablet Referrals: RIAZ BUSTILLOS MD [Primary Care Provider] - Follow up as needed
[2017-11-13 11:02] VITALS: BP 110/65
== END 2017-11-13 11:06 | disposition home or self-care (01) ==
LOC: ER 10:42
DX: F31.9 Bipolar disorder, unspecified (principal); Z76.0 Encounter for issue of repeat prescription
CPT/HCPCS: 99281

== ENCOUNTER 2017-12-23 23:49 | Emergency (ER) | payer OTHER ==
--- NOTE | 2017-12-24 00:55 | ER Document Report ---
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 He says every time he uses cleaning agent he will get some shortness of breath but today is much worse. He did call the hotline associate with a company that makes a chemical. I informed him that since he was short of breath that he should come to the ER. Upon my evaluation the patient he says that shortness of breath is much improved since he has been here without any significant intervention. Has no other complaints at this time. No fevers. TRAVEL OUTSIDE OF THE [place] IN LAST 30 DAYS: No - Related Data Allergies/Adverse Reactions: No Known Allergies Allergy (Verified 12/23/17 23:57) Past Medical History - Social History Smoking Status: Unknown if Ever Smoked Frequency of alcohol use: None Drug Abuse: Other - former drug abuse. no current drug abuse Family History: Reviewed & Not Pertinent - ETOH abuse Renal/ Medical History: Denies: Hx Peritoneal Dialysis Psychiatric Medical History: Reports: Hx Bipolar Disorder, Hx Depression - Immunizations Hx Diphtheria, Pertussis, Tetanus Vaccination: Yes Review of Systems - Review of Systems Notes: My Normal Review Basic REVIEW OF SYSTEMS: CONSTITUTIONAL : Denies fever, chills, or sweats. Denies recent illness. EENT: Denies eye, ear, throat, or mouth pain or symptoms. Denies nasal or sinus congestion. CARDIOVASCULAR: Denies chest pain. RESPIRATORY: Difficult to breathing GASTROINTESTINAL: Denies abdominal pain. Denies nausea, vomiting, or diarrhea. MUSCULOSKELETAL: Pain in his upper back SKIN: Denies rash or skin lesions. NEUROLOGICAL: Denies altered mental status or loss of consciousness. Denies headache. Denies weakness or paralysis or loss of use of either side. Denies problems with gait or speech. Denies sensory or motor loss. ALL OTHER SYSTEMS REVIEWED AND NEGATIVE. Physical Exam - Vital signs Vitals: Temp Pulse Resp BP Pulse Ox 98.1 F 69 14 118/74 99 12/24/17 00:02 12/24/17 00:02 12/24/17 00:02 12/24/17 00:02 12/24/17 00:02 - Notes Notes: General Appearance: Well nourished, alert, cooperative, no acute distress, no obvious discomfort. Vitals: reviewed, See vital signs table. Eyes: PERRL, EOMI, Conjuctiva clear Mouth: No decreasd moisture Throat: No tonsillar inflammation, No airway obstruction, No lymphadenopathy Neck: Supple Lungs: Lungs are clear. Patient is resting comfortably. No signs of tachypnea. No accessory muscle use. Heart: Normal rate, Regular rythm, No murmur, no rub Extremities: good pulses in all extremities Neuro: speech clear, oriented x 3, normal affect, responds appropriately to questions. Course - Re-evaluation Re-evalutation: 12/24/17 00:54 I did speak with the medical line for the [employer] I spoke with Oli. She informs me that the recall the patient was exposed to is made up of glycerin and potassium carbonate. 12/24/17 04:18 On reevaluation patient's lung [place] continue to be clear. Chest x-ray is clear. His vital signs are normal. He looks well. I feel he safe to be discharged home. I encouraged him return to ER if he has any recurrent difficulty breathing, chest pain, or if he feels unwell. Patient agrees with plan and will be discharged home. Dictation of this chart was performed using voice recognition software; therefore, there may be some unintended grammatical errors. - Vital Signs Vital signs: Temp Pulse Resp BP Pulse Ox 98.6 F 69 17 106/69 96 12/24/17 02:03 12/24/17 00:02 12/24/17 02:03 12/24/17 02:03 12/24/17 02:03 Discharge - Discharge Clinical Impression: Chemical exposure Condition: Good Disposition: HOME, SELF-CARE Additional Instructions: Please return to the ER immediately if you develop difficulty breathing or feel that you are worsening in any way. Please wear a mask when using cleaning products at work./ Forms: Special Work Note, Return to Work
--- NOTE | 2017-12-24 01:13 | RADIOLOGY REPORT (SQ) ---
CLINICAL HISTORY: dyspnea post inhalation COMPARISON: None. TECHNIQUE: XR CHEST 1 VIEW 12/24/2017 12:43 AM CDT FINDINGS: Cardiac silhouette is normal in size. Lungs are clear without consolidation, atelectasis, mass or edema. There is no pleural effusion. There is no pneumothorax. There are no acute osseous findings. IMPRESSION: Clear lungs.
[2017-12-24 02:18] VITALS: BP 106/69
== END 2017-12-24 02:20 | disposition home or self-care (01) ==
LOC: ER 23:49
DX: T65.891A Toxic effect of other specified substances, accidental (unintentional), initial encounter (principal); R06.02 Shortness of breath; M54.9 Dorsalgia, unspecified; Y92.9 Unspecified place or not applicable
CPT/HCPCS: 71045; 99284

== ENCOUNTER 2018-04-13 06:38 | Emergency (ER) | payer OTHER ==
[2018-04-13] MEDS ORDERED: KETOROLAC TROMETHAMINE 60 MG/2 ML SDV IM ONE (07:43)
[2018-04-13] MEDS ORDERED: CYCLOBENZAPRINE HCL 10 MG TABLET PO ONE (07:43)
[2018-04-13] MEDS ORDERED: LIDOCAINE 5% (700 MG) TRANSDERMAL ADH..PATCH TP ONE (08:25)
--- NOTE | 2018-04-13 08:56 | RADIOLOGY REPORT (SQ) ---
EXAM: X-ray thoracic spine two views CLINICAL DATA: 27-year-old male with back pain TECHNICAL DATA: AP, lateral and swimmers views were performed on 04/13/2018 at 8:03 AM. Comparison: 10/10/2012. FINDINGS: The thoracic vertebrae are normal in height. The thoracic vertebrae are normal in alignment.. The disc spaces are well preserved in height. There is no evidence of acute fracture or subluxation. Bone mineralization is within normal limits. No focal lytic or sclerotic bone lesions are identified. The surrounding soft tissues are unremarkable. IMPRESSION: 1. No evidence of acute osseous injury involving the thoracic spine. 2. No significant change since the prior study.
--- NOTE | 2018-04-13 09:40 | ER Document Report ---
HPI - HPI Patient complains to provider of: back pain Time Seen by Provider: 04/13/18 07:11 Pain Level: 4 Context: Patient is an otherwise healthy 27-year-old male presents to the emergency department for generalized thoracic back pain. Patient states this pain has been consistent over the last couple of years. States over the last couple of days he feels as though it is gotten worse which is why he presents to the emergency room. Patient denies any follow-up with primary care provider for this generalized back pain. Patient denies any new injuries or trauma that he is aware of. Patient denies any numbness or tingling in any extremity, urinary retention or loss of bowel or bladder. Past medical history: None Medications: None Allergies: None Surgical history: None - URINARY Urinary: DENIES: Dysuria Past Medical History - General Information source: Patient - Social History Smoking Status: Current Every Day Smoker Frequency of alcohol use: Occasional Drug Abuse: Marijuana Family History: Reviewed & Not Pertinent - ETOH abuse Patient has suicidal ideation: No Patient has homicidal ideation: No Renal/ Medical History: Denies: Hx Peritoneal Dialysis Psychiatric Medical History: Reports: Hx Bipolar Disorder, Hx Depression - Immunizations Hx Diphtheria, Pertussis, Tetanus Vaccination: Yes Vertical Provider Document - CONSTITUTIONAL Agree With Documented VS: Yes Notes: GENERAL: Alert, interacts well. No acute distress. HEAD: Normocephalic, atraumatic. EYES: Pupils equal, round, and reactive to light. Extraocular movements intact. ENT: Oral mucosa moist, tongue midline. NECK: Full range of motion. Supple. Trachea midline. LUNGS: Clear to auscultation bilaterally, no wheezes, rales, or rhonchi. No respiratory distress. HEART: Regular rate and rhythm. No murmur ABDOMEN: Soft, non-tender. Non-distended. Bowel sounds present in all 4 quadrants. EXTREMITIES: Moves all 4 extremities spontaneously. No edema, normal radial and dorsalis pedis pulses bilaterally. No cyanosis. 5 out of 5 strength all 4 extremities BACK: no cervical, lumbar midline tenderness. No saddle anesthesia, normal distal neurovascular exam. Patient complains of generalized thoracic spine or tenderness as well as thoracic paraspinal tenderness noted. No obvious trauma noted to patient's back NEUROLOGICAL: Alert and oriented x3. Normal speech. cranial nerves II through XII grossly intact PSYCH: Normal affect, normal mood. SKIN: Warm, dry, normal turgor. No rashes or lesions noted. - INFECTION CONTROL TRAVEL OUTSIDE OF THE [place] IN LAST 30 DAYS: No Course - Re-evaluation Re-evalutation: 04/13/18 09:36 This appears to be a chronic problem, x-rays had not been performed so they were performed in the emergency room. They revealed no signs of abnormalities at this time. Patient was treated with Toradol, Flexeril, Lidoderm patch. Discussed close follow-up with [facility] or [facility]. Patient voices understanding is stable for discharge. - Vital Signs Vital signs: Temp Pulse Resp BP Pulse Ox 98.7 F 62 14 99/53 L 97 04/13/18 06:48 04/13/18 06:48 04/13/18 06:48 04/13/18 06:48 04/13/18 06:48 Discharge - Discharge Clinical Impression: Back pain Qualifiers: Back pain location: thoracic back pain Chronicity: chronic Back pain laterality: midline Qualified Code(s): M54.6 - Pain in thoracic spine; G89.29 - Other chronic pain Condition: Stable Disposition: HOME, SELF-CARE Instructions: Warm Packs ([facility]), Muscle Strain ([facility]) Additional Instructions: As we discussed you have been seen and treated in the emergency department for your generalized back pain. Please make sure you take [id number] Tylenol Motrin for your generalized pain. Please also take muscle relaxers as prescribed. Please do exercises also listed in this paperwork. Please make sure you follow-up with [facility] or [facility] for further care. Please also return to the emergency room should you have any other concerning symptoms. Stretching Exercises for the Back The physician has recommended that you begin stretching exercises for your back. These are often used even while the back is painful. However, you should notify the physician if the activities seem to increase your pain. PELVIC TILT: Lie flat on your back with knees bent. Tighten your stomach and buttock muscles so it flattens your lower back against the floor. Hold 10 seconds. Repeat 10 times, twice daily. KNEE RAISE: Lying on the back with knees bent, raise one knee to your chest, then the other. Hold both knees against the chest 10 seconds, then lower one knee at a time. Repeat 10 times, twice daily. PARTIAL TRUNK RAISE: Lie face down, arms at your sides. Keeping your waist on the floor, use your arms raise your chest up. Support yourself on your elbows for 30 seconds. Repeat twice daily, increasing the time to two minutes as you recover. Prescriptions: Cyclobenzaprine HCl [Flexeril 10 mg Tablet] 5 mg PO TIDP PRN #15 tab PRN Reason: Referrals: [facility] [Provider Group] - Follow up as needed
[2018-04-13 09:49] VITALS: BP 92/62
== END 2018-04-13 09:54 | disposition home or self-care (01) ==
LOC: ER 06:38
DX: M54.6 Pain in thoracic spine (principal); G89.29 Other chronic pain; F17.200 Nicotine dependence, unspecified, uncomplicated
CPT/HCPCS: 99283; 96372; 72070; J1885

== ENCOUNTER 2018-05-08 09:07 | Emergency (ER) | payer SELFPAY ==
[2018-05-08] MEDS ORDERED: ONDANSETRON 4 MG TAB.RAPDIS PO ONE (10:32)
--- NOTE | 2018-05-08 10:32 | ER Document Report ---
ED Medical Screen (RME) - General Chief Complaint: Chest Pain Stated Complaint: CHEST PAIN Time Seen by Provider: 05/08/18 10:25 Primary Care Provider: RIAZ BUSTILLOS MD [Primary Care Provider] - Follow up as needed Mode of Arrival: Wheelchair Information source: Patient Notes: 27-year-old man with a history of depression and anxiety who presents to the emergency room with nausea, chest tightness, shortness of breath shaking and sweating as per mother. Patient states he is felt bad since working yesterday. 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 He states he was working hard yesterday because of lack of coverage and found it very stressful. He states this feels different than his normal anxiety. He is nauseated right now. TRAVEL OUTSIDE OF THE [place] IN LAST 30 DAYS: No - Related Data Allergies/Adverse Reactions: No Known Allergies Allergy (Verified 05/08/18 09:13) Past Medical History - Social History Chew tobacco use (# tins/day): No Frequency of alcohol use: None Drug Abuse: Marijuana Renal/ Medical History: Denies: Hx Peritoneal Dialysis Psychiatric Medical History: Reports: Hx Bipolar Disorder, Hx Depression - Immunizations Hx Diphtheria, Pertussis, Tetanus Vaccination: Yes Physical Exam - Vital signs Vitals: Temp Pulse Resp BP Pulse Ox 98.2 F 103 H 24 H 145/96 H 98 05/08/18 09:24 05/08/18 09:24 05/08/18 09:24 05/08/18 09:24 05/08/18 09:24 Course - Vital Signs Vital signs: Temp Pulse Resp BP Pulse Ox 98.2 F 103 H 24 H 145/96 H 98 05/08/18 09:24 05/08/18 09:24 05/08/18 09:24 05/08/18 09:24 05/08/18 09:24 Doctor's Discharge - Discharge Referrals: RIAZ BUSTILLOS MD [Primary Care Provider] - Follow up as needed
[2018-05-08 10:55] LABS: ABSOLUTE MONOCYTES (AUTO) 0.4 10^3/uL (0.1-1.4); ABSOLUTE NEUT (AUTO) 2.5 10^3/uL (1.7-8.2); BASOPHILS % (AUTO) 1.1 % (0-2); EOSINOPHILS % (AUTO) 0.3 % (0-6); HEMATOCRIT 39.3 % (37.9-51.0); HEMOGLOBIN 14.1 g/dL (13.5-17.0); LYMPHOCYTES % (AUTO) 25.3 % (13-45); MEAN CORPUSCULAR HEMOGLOBIN 33.8 pg (27.0-33.4); MEAN CORPUSCULAR VOLUME 94 fl (80-97); PLATELET COUNT 225 10^3/uL (150-450); RED BLOOD COUNT 4.18 10^6/uL (4.35-5.55); RED CELL DISTRIBUTION WIDTH 11.6 % (11.5-14.0); SEGMENTED NEUTROPHILS % (AUTO) 63.3 % (42-78); TOTAL CELLS COUNTED % (AUTO) 100 %
--- NOTE | 2018-05-08 10:58 | RADIOLOGY REPORT (SQ) ---
EXAM DESCRIPTION: CHEST 2 VIEWS COMPLETED DATE/TIME: 05/08/2018 10:49 am REASON FOR STUDY: sob COMPARISON: None. TECHNIQUE: Frontal and lateral radiographic views of the chest acquired. NUMBER OF VIEWS: Two view. LIMITATIONS: None. FINDINGS: LUNGS AND PLEURA: No opacities, masses or pneumothorax. No pleural effusion. MEDIASTINUM AND HILAR STRUCTURES: No masses or contour abnormalities. HEART AND VASCULAR STRUCTURES: Heart normal size. No evidence for failure. BONES: No acute findings. HARDWARE: None in the chest. OTHER: No other significant finding. IMPRESSION: NO SIGNIFICANT RADIOGRAPHIC FINDING IN THE CHEST. TECHNICAL DOCUMENTATION: JOB ID: [id number] [employer]- All Rights Reserved Reading location - IP/workstation name: [email or web address]
[2018-05-08 11:12] LABS: ALANINE AMINOTRANSFERASE 24 U/L (21-72); ALBUMIN 4.8 g/dL (3.5-5.0); ALKALINE PHOSPHATASE 51 U/L (38-126); ANION GAP 12 (5-19); ASPARTATE AMINO TRANSFERASE 21 U/L (17-59); BILIRUBIN,DIRECT 0.1 mg/dL (0.0-0.4); BILIRUBIN,TOTAL 0.7 mg/dL (0.2-1.3); BLOOD UREA NITROGEN 14 mg/dL (7-20); CALCIUM 9.6 mg/dL (8.4-10.2); CARBON DIOXIDE 25 mmol/L (22-30); CHLORIDE 102 mmol/L (98-107); GLUCOSE 95 mg/dL (75-110); POTASSIUM 3.9 mmol/L (3.6-5.0); SODIUM 138.7 mmol/L (137-145); TOTAL PROTEIN 7.4 g/dL (6.3-8.2)
--- NOTE | 2018-05-08 12:44 | EKG REPORT ---
SEVERITY:- ABNORMAL ECG - SINUS RHYTHM SEVERE BASELINE ARTIFACT.REPEAT EKG.. : Confirmed by: Matilda Salvador MD 08-May-2018 12:43:20
[2018-05-08 13:09] VITALS: BP 101/60
--- NOTE | 2018-05-08 13:15 | ER Document Report ---
ED General - General Chief Complaint: Chest Pain Stated Complaint: CHEST PAIN Time Seen by Provider: 05/08/18 10:25 Primary Care Provider: RIAZ BUSTILLOS MD [NO LOCAL MD] - Follow up as needed Mode of Arrival: Wheelchair TRAVEL OUTSIDE OF THE [place] IN LAST 30 DAYS: No - HPI Patient complains to provider of: Feeling unwell chest pain nausea vomiting Notes: Patient coming in for chest pain feeling unwell nausea vomiting patient was seen by in triage his notes provided below 27-year-old man with a history of depression and anxiety who presents to the emergency room with nausea, chest tightness, shortness of breath shaking and sweating as per mother. Patient states he is felt bad since working yesterday. Patient is a business development director. He states he was working hard yesterday because of lack of coverage and found it very stressful. He states this feels different than his normal anxiety. He is nauseated right now. Upon my evaluation patient resting comfortably no longer shaking. Patient has multiple sick contacts with cough cold like symptoms patient denies recent antibiotics denies any recent travel. Patient states nausea has improved. Patient was to be no obvious distress. - Related Data Allergies/Adverse Reactions: No Known Allergies Allergy (Verified 05/08/18 09:13) Past Medical History - General Information source: Patient - Social History Smoking Status: Never Smoker Chew tobacco use (# tins/day): No Frequency of alcohol use: None Drug Abuse: Marijuana Family History: Reviewed & Not Pertinent - ETOH abuse Patient has suicidal ideation: No Patient has homicidal ideation: No Renal/ Medical History: Denies: Hx Peritoneal Dialysis Psychiatric Medical History: Reports: Hx Bipolar Disorder, Hx Depression - Immunizations Hx Diphtheria, Pertussis, Tetanus Vaccination: Yes Review of Systems - Review of Systems Constitutional: Other - Anxiety nausea vomiting abdominal pain achiness feeling unwell EENT: No symptoms reported Cardiovascular: No symptoms reported Respiratory: No symptoms reported Gastrointestinal: No symptoms reported Genitourinary: No symptoms reported Male Genitourinary: No symptoms reported Musculoskeletal: No symptoms reported Skin: No symptoms reported Hematologic/Lymphatic: No symptoms reported Neurological/Psychological: No symptoms reported -: Yes All other systems reviewed and negative Physical Exam - Vital signs Vitals: Temp Pulse Resp BP Pulse Ox 98.2 F 103 H 24 H 145/96 H 98 05/08/18 09:24 05/08/18 09:24 05/08/18 09:24 05/08/18 09:24 05/08/18 09:24 Interpretation: Normal - General General appearance: Appears well, Alert - HEENT Head: Normocephalic, Atraumatic Eyes: Normal Pupils: PERRL - Respiratory Respiratory status: No respiratory distress Chest status: Nontender Breath sounds: Normal Chest palpation: Normal - Cardiovascular Rhythm: Regular Heart sounds: Normal auscultation Murmur: No - Abdominal Inspection: Normal Distension: No distension Bowel sounds: Normal Tenderness: Nontender Organomegaly: No organomegaly - Back Back: Normal, Nontender - Extremities General upper extremity: Normal inspection, Nontender, Normal color, Normal ROM, Normal temperature General lower extremity: Normal inspection, Nontender, Normal color, Normal ROM, Normal temperature, Normal weight bearing. No: Poonam's sign - Neurological Neuro grossly intact: Yes Cognition: Normal Orientation: AAOx4 Patrick Coma Scale Eye Opening: Spontaneous [place] Coma Scale Verbal: Oriented [place] Coma Scale Motor: Obeys Commands [place] Coma Scale Total: 15 Speech: Normal Motor strength normal: LUE, RUE, LLE, RLE Sensory: Normal - Psychological Associated symptoms: Normal affect, Normal mood - Skin Skin Temperature: Warm Skin Moisture: Dry Skin Color: Normal Course - Re-evaluation Re-evalutation: 05/08/18 13:10 No critical pathology seen for the patient on physical examination or laboratory studies. Patient was able tolerate p.o. Patient possibly has a viral-like illness. Patient will be discharged on follow-up primary care physician. - Vital Signs Vital signs: Temp Pulse Resp BP Pulse Ox 98.2 F 103 H 18 101/60 100 05/08/18 09:24 05/08/18 09:24 05/08/18 13:01 05/08/18 13:01 05/08/18 13:01 - Laboratory Result Diagrams: 05/08/18 10:39 05/08/18 10:39 Laboratory results interpreted by me: 05/08/18 10:39 RBC 4.18 L MCH 33.8 H Discharge - Discharge Clinical Impression: Feeling unwell, Nausea & vomiting Condition: Good Disposition: HOME, SELF-CARE Instructions: Gastroenteritis (adult) ([facility]), Viral Syndrome ([facility]) Additional Instructions: Laboratory studies EKG chest x-ray not show any critical pathology more likely have underlying viral type illness. Your symptoms are likely due to a virus. However, it is important that you continue to monitor for any concerning symptoms including inability to tolerate oral fluids, less than 2 urinations in a 24 hour period, and lethargy Please continue to offer oral solutions such as Pedialyte, water, gatorade. It is okay if you do not want to eat over the next several days but it is important that they continue to drink fluids. You may also provide a medication such as ibuprofen (Motrin) or acetaminophen (Tylenol) per box instructions for fever. Please also follow-up with your doctor in the next several days. Please take the medications given to you as prescribed. Prescriptions: Ondansetron [Zofran Odt 4 mg Tablet] 1 - 2 tab PO Q4H PRN #30 tab.rapdis PRN Reason: For Nausea/Vomiting Promethazine HCl [Phenergan 25 mg Tablet] 25 mg PO Q6 #30 tablet Referrals: RIAZ BUSTILLOS MD [NO LOCAL MD] - Follow up as needed
== END 2018-05-08 13:19 | disposition home or self-care (01) ==
LOC: ER 09:07
DX: R11.2 Nausea with vomiting, unspecified (principal); R07.9 Chest pain, unspecified; R06.02 Shortness of breath; F41.9 Anxiety disorder, unspecified
CPT/HCPCS: 93005; 99284; 36415; 82550; 84443; 85025; 80053; 84484; 71046; 93010; S0119

== ENCOUNTER 2018-05-10 18:01 | Emergency (ER) | payer OTHER ==
--- NOTE | 2018-05-10 19:26 | ER Document Report ---
ED Medical Screen (RME) - General Chief Complaint: Anxiety Stated Complaint: POSSIBLE ANXIETY Time Seen by Provider: 05/10/18 19:23 Mode of Arrival: Ambulatory Information source: Patient Notes: 27-year-old male with bipolar disorder, depression, anxiety presents via EMS from work after a "anxiety attack". Patient cannot elaborate on what is making him anxious. He denies suicidal ideation, homicidal ideation. He is requesting evaluation by behavioral health. He does report that he started Seroquel 2 days ago. I have greeted and performed a rapid initial assessment of this patient. A comprehensive ED assessment and evaluation of the patient, analysis of test results and completion of medical decision making process we will be contacted by additional ED providers. PHYSICAL EXAMINATION: Vital signs reviewed GENERAL: Well-appearing, well-nourished and in no acute distress. LUNGS: No respiratory distress Musculoskeletal: Normal range of motion NEUROLOGICAL: Normal speech, normal gait. PSYCH: Flat affect, poor eye contact. SKIN: Warm, Dry, normal turgor, no rashes or lesions noted. TRAVEL OUTSIDE OF THE [place] IN LAST 30 DAYS: No - HPI Onset: Just prior to arrival Onset/Duration: Sudden Quality of pain: No pain Severity: None Associated Symptoms: None Exacerbated by: Denies Relieved by: Denies Similar symptoms previously: Yes Recently seen / treated by doctor: Yes - Related Data Smoking: Non-smoker Frequency of alcohol use: None Drug Abuse: None Allergies/Adverse Reactions: No Known Allergies Allergy (Verified 05/08/18 09:13) Past Medical History Renal/ Medical History: Denies: Hx Peritoneal Dialysis Psychiatric Medical History: Reports: Hx Bipolar Disorder, Hx Depression - Immunizations Hx Diphtheria, Pertussis, Tetanus Vaccination: Yes Physical Exam - Vital signs Vitals: Temp Pulse Resp BP Pulse Ox 98.3 F 73 16 104/72 98 05/10/18 18:19 05/10/18 18:19 05/10/18 18:19 05/10/18 18:19 05/10/18 18:19 Course - Vital Signs Vital signs: Temp Pulse Resp BP Pulse Ox 98.3 F 73 16 104/72 98 05/10/18 18:19 05/10/18 18:19 05/10/18 18:19 05/10/18 18:19 05/10/18 18:19
[2018-05-10 19:51] LABS: ABSOLUTE BASOPHILS # (AUTO) 0.1 10^3/uL (0.0-0.2); ABSOLUTE EOSINOPHILS # (AUTO) 0.1 10^3/uL (0.0-0.6); ABSOLUTE LYMPHOCYTES (AUTO) 1.3 10^3/uL (0.5-4.7); ABSOLUTE MONOCYTES (AUTO) 0.5 10^3/uL (0.1-1.4); APPEARANCE,URINE CLEAR; BASOPHILS % (AUTO) 2.1 % (0-2); BILIRUBIN,URINE NEGATIVE (NEGATIVE); COLOR,URINE COLORLESS; EOSINOPHILS % (AUTO) 1.4 % (0-6); GLUCOSE, URINE NEGATIVE (NEGATIVE); HEMATOCRIT 40.1 % (37.9-51.0); HEMOGLOBIN 14.4 g/dL (13.5-17.0); KETONES,URINE NEGATIVE (NEGATIVE); LEUKOCYTE ESTERASE,URINE NEGATIVE (NEGATIVE); LYMPHOCYTES % (AUTO) 33.6 % (13-45); MEAN CORPUSCULAR HEMOGLOBIN 34.1 pg (27.0-33.4); MEAN CORPUSCULAR VOLUME 95 fl (80-97); MONOCYTES % (AUTO) 12.3 % (3-13); NITRITE,URINE NEGATIVE (NEGATIVE); PLATELET COUNT 222 10^3/uL (150-450); PROTEIN,URINE NEGATIVE (NEGATIVE); RED BLOOD COUNT 4.24 10^6/uL (4.35-5.55); SEGMENTED NEUTROPHILS % (AUTO) 50.6 % (42-78); TOTAL CELLS COUNTED % (AUTO) 100 %; URINE SPECIFIC GRAVITY 1.002; UROBILINOGEN,URINE NEGATIVE mg/dL (<2.0); WHITE BLOOD COUNT 3.9 10^3/uL (4.0-10.5)
[2018-05-10 20:00] LABS: ALANINE AMINOTRANSFERASE 27 U/L (21-72); ALBUMIN 4.7 g/dL (3.5-5.0); ALKALINE PHOSPHATASE 47 U/L (38-126); ANION GAP 12 (5-19); ASPARTATE AMINO TRANSFERASE 18 U/L (17-59); BILIRUBIN,TOTAL 0.7 mg/dL (0.2-1.3); BLOOD UREA NITROGEN 11 mg/dL (7-20); CALCIUM 9.2 mg/dL (8.4-10.2); CARBON DIOXIDE 25 mmol/L (22-30); CHLORIDE 100 mmol/L (98-107); GLUCOSE 96 mg/dL (75-110); POTASSIUM 3.8 mmol/L (3.6-5.0); SODIUM 136.9 mmol/L (137-145); TOTAL PROTEIN 7.6 g/dL (6.3-8.2)
[2018-05-10 20:01] LABS: ACETAMINOPHEN < 10 ug/mL (10-30); ALCOHOL < 10 mg/dL (NONE DETECTED); SALICYLATE < 1.0 mg/dL (2.0-20.0)
[2018-05-10 20:07] LABS: URINE AMPHETAMINES SCREEN NEGATIVE; URINE BARBITURATES SCREEN NEGATIVE; URINE BENZODIAZEPINES SCREEN NEGATIVE; URINE COCAINE SCREEN NEGATIVE; URINE MARIJUANA (THC) SCREEN NEGATIVE; URINE METHADONE SCREEN NEGATIVE; URINE PHENCYCLIDINE SCREEN NEGATIVE
[2018-05-10] MEDS ORDERED: DIAZEPAM 5 MG TABLET PO ONE (20:49)
--- NOTE | 2018-05-10 21:25 | ER Document Report ---
Addendum entered and electronically signed by JACQUES KAPLAN DO 05/11/18 14:46: Discharge - Discharge Clinical Impression: Generalized anxiety disorder, Panic attacks Condition: Stable Disposition: HOME, SELF-CARE Instructions: Anxiety ([facility]) Additional Instructions: You have been evaluated and assessed at [facility] Emergency Department by both the medical and behavioral health teams after presenting for anxiety/panic attack and are now deemed appropriate for discharge. While in the ED, you received an initial medical screening, lab work, EKG, medications, direct staff observation, clinical evaluation, physician assessment, and outpatient resources. You were cleared from both services and record review revealed a history of anxiety. Mobile crisis resources were provided to you for when these situations arise. You are encouraged to develop positive coping skills through outpatient counseli ng and a list of local providers was given to you. You are also encouraged to follow up with your outpatient mental health provider at [facility] 05/16/18 and maintain compliance with your prescribed medication. Panic Attack The cause of panic attacks is unknown. Symptoms can include chest pain, shortness of breath, palpitations, sweats, and a sense of smothering or impending doom. In time, the panic attacks can lead to generalized anxiety and phobias. Because the symptoms can mimic heart attack, pulmonary embolism, and other serious diseases, the physician has evaluated you for these conditions. There is no evidence of a serious problem. An acute panic attack usually goes away by itself without treatment. A severe attack can be treated with medicine to calm you. Long-term, antidepressant medicines may help prevent attacks. Counselling can also be very beneficial in dealing with panic attacks. Panic attacks are less likely if you are getting regular exercise, proper diet, and plenty of sleep. It's normal for panic attacks to cause many frightening symptoms. However, you should call or return if your symptoms change significantly or if you are worsening. Anxiety The physician feels that some of your health problems are being caused by anxiety. Anxiety affects your health in many ways. Anxiety alone can cause palpitations, sweats, chest pains, abdominal pains, shortness of breath, and headaches. It contributes to ulcer disease, high blood pressure, irritable bowel syndrome, and has been shown to cause flare-ups of many other diseases. Anxiety is not a simple disorder to treat. If the anxiety is due to recent life stresses, you may simply need time to "work through" the changes. If the anxiety is due to an underlying unhappiness with yourself or due to psychiatric disturbance, professional help will be needed. Your physician can refer you for further help if needed. Anti-anxiety medication is occasionally given if the stress is acute or if you are having trouble sleeping. Chronic or frequent use of these medications is not a good idea because the body becomes reliant on it, preventing you from dealing with life's normal stresses. Prescriptions: Buspirone HCl [Buspar 10 mg Tablet] 10 mg PO BID #20 tablet Referrals: [facility] [Provider Group] - 05/16/18 Addendum entered and electronically signed by JANICE CESAR LPCA 05/11/18 10:29: Discharge - Discharge Clinical Impression: Generalized anxiety disorder, Panic attacks Condition: Stable Disposition: HOME, SELF-CARE Instructions: Anxiety ([facility]) Additional Instructions: You have been evaluated and assessed at [facility] Emergency Department by both the medical and behavioral health teams after presenting for anxiety/panic attack and are now deemed appropriate for discharge. While in the ED, you received an initial medical screening, lab work, EKG, medications, direct staff observation, clinical evaluation, physician assessment, and outpatient resources. You were cleared from both services and record review revealed a history of anxiety. Mobile crisis resources were provided to you for when these situations arise. You are encouraged to develop positive coping skills through outpatient counseling and a list of local providers was given to you. You are also e ncouraged to follow up with your outpatient mental health provider at [facility] 05/16/18 and maintain compliance with your prescribed medication. Panic Attack The cause of panic attacks is unknown. Symptoms can include chest pain, shortness of breath, palpitations, sweats, and a sense of smothering or impending doom. In time, the panic attacks can lead to generalized anxiety and phobias. Because the symptoms can mimic heart attack, pulmonary embolism, and other serious diseases, the physician has evaluated you for these conditions. There is no evidence of a serious problem. An acute panic attack usually goes away by itself without treatment. A severe attack can be treated with medicine to calm you. Long-term, antidepressant medicines may help prevent attacks. Counselling can also be very beneficial in dealing with panic attacks. Panic attacks are less likely if you are getting regular exercise, proper diet, and plenty of sleep. It's normal for panic attacks to cause many frightening symptoms. However, you should call or return if your symptoms change significantly or if you are worsening. Anxiety The physician feels that some of your health problems are being caused by anxiety. Anxiety affects your health in many ways. Anxiety alone can cause palpitations, sweats, chest pains, abdominal pains, shortness of breath, and headaches. It contributes to ulcer disease, high blood pressure, irritable bowel syndrome, and has been shown to cause flare-ups of many other diseases. Anxiety is not a simple disorder to treat. If the anxiety is due to recent life stresses, you may simply need time to "work through" the changes. If the anxiety is due to an underlying unhappiness with yourself or due to psychiatric disturbance, professional help will be needed. Your physician can refer you for further help if needed. Anti-anxiety medication is occasionally given if the stress is acute or if you are having trouble sleeping. Chronic or frequent use of these medications is not a good idea because the body becomes reliant on it, preventing you from dealing with life's normal stresses. Referrals: [facility] [Provider Group] - Follow up as needed Original Note: ED General - General Chief Complaint: Anxiety Stated Complaint: POSSIBLE ANXIETY Time Seen by Provider: 05/10/18 19:23 Mode of Arrival: Ambulatory Notes: Patient is a 27-year-old male with a past medical history of chronic generalized anxiety, panic attacks, presents complaining of increased frequency of panic att acks and increased intensity of his panic attacks. Patient states that he was at work today, began to have severe symptoms of panic, sweating in his hands which he felt he was shooting up his arms. States that he felt he was having difficulty breathing. Came to the emergency department and states that his symptoms have mostly resolved spontaneously here in the emergency department. The patient is taking Seroquel for symptomatic control and reports that it is not helping. No obvious precipitant for today's episode. States that it does however feel very similar to panic attacks that he had in the past. He denies suicidal or homicidal ideation. He is requesting to speak to [facility] in the morning. He denies any acute medical concerns. TRAVEL OUTSIDE OF THE [place] IN LAST 30 DAYS: No - Related Data Allergies/Adverse Reactions: No Known Allergies Allergy (Verified 05/08/18 09:13) Past Medical History - General Information source: Patient - Social History Smoking Status: Former Smoker Frequency of alcohol use: None Drug Abuse: None Family History: Reviewed & Not Pertinent - ETOH abuse Patient has suicidal ideation: No Patient has homicidal ideation: No Renal/ Medical History: Denies: Hx Peritoneal Dialysis Psychiatric Medical History: Reports: Hx Bipolar Disorder, Hx Depression - Immunizations Hx Diphtheria, Pertussis, Tetanus Vaccination: Yes Review of Systems - Review of Systems Notes: Constitutional: Negative for fever. HENT: Negative for sore throat. Eyes: Negative for visual changes. Cardiovascular: Negative for chest pain. Respiratory: Negative for shortness of breath. Gastrointestinal: Negative for abdominal pain, vomiting or diarrhea. Genitourinary: Negative for dysuria. Musculoskeletal: Negative for back pain. Skin: Negative for rash. Neurological: Negative for headaches, weakness or numbness. 10 point ROS negative except as marked above and in HPI. Physical Exam - Vital signs Vitals: Temp Pulse Resp BP Pulse Ox 98.3 F 73 16 104/72 98 05/10/18 18:19 05/10/18 18:19 05/10/18 18:19 05/10/18 18:19 05/10/18 18:19 Interpretation: Normal Notes: PHYSICAL EXAMINATION: GENERAL: Well-appearing, well-nourished and in no acute distress. HEAD: Atraumatic, normocephalic. EYES: Pupils equal round and reactive to light, extraocular movements intact, sclera anicteric, conjunctiva are normal. ENT: nares patent, oropharynx clear without exudates. Moist mucous membranes. NECK: Normal range of motion, supple without lymphadenopathy LUNGS: Breath sounds clear to auscultation bilaterally and equal. No wheezes rales or rhonchi. HEART: Regular rate and rhythm without murmurs ABDOMEN: Soft, nontender, normoactive bowel sounds. No guarding, no rebound. No masses appreciated. EXTREMITIES: Normal range of motion, no pitting or edema. No cyanosis. NEUROLOGICAL: No focal neurological deficits. Moves all extremities spontaneously and on command. PSYCH: Normal mood, normal affect. SKIN: Warm, Dry, normal turgor, no rashes or lesions noted. Course - Re-evaluation Re-evalutation: 05/10/18 21:24 Patient presents with generalized anxiety with associated panic attacks. States that his symptoms been getting worse, his panic attacks have become more severe. Denies any acute safety concerns. Specifically no suicidal or homicidal ideation. No hallucinations or delusions. Patient is taking Seroquel for his anxiety states the SSRIs make him suicidal. He is requesting to speak to [facility] in the morning. He does not meet involuntary criteria and will remain on entirely voluntary basis. His medical screening exams and labs are otherwise unremarkable. He is cleared for evaluation and disposition by [facility]. - Vital Signs Vital signs: Temp Pulse Resp BP Pulse Ox 98.3 F 73 16 104/72 98 05/10/18 18:19 05/10/18 18:19 05/10/18 18:19 05/10/18 18:19 05/10/18 18:19 - Laboratory Result Diagrams: 05/10/18 19:35 05/10/18 19:35 Laboratory results interpreted by me: 05/10/18 05/10/18 19:35 19:35 WBC 3.9 L RBC 4.24 L MCH 34.1 H Basophils % 2.1 H Sodium 136.9 L Salicylates < 1.0 L Acetaminophen < 10 L - EKG Interpretation by Me Additional EKG results interpreted by me: 05/10/18 22:57 Sinus bradycardia, rate 50. Early repolarization pattern. QTC 387. Discharge - Discharge Clinical Impression: Generalized anxiety disorder, Panic attacks
--- NOTE | 2018-05-10 22:19 | EKG REPORT ---
SEVERITY:- ABNORMAL ECG - SINUS RHYTHM BORDERLINE Q WAVE IN ANTEROLATERAL LEADS ABNORMAL T, CONSIDER ISCHEMIA, ANT-LAT LEADS VERSUS HYPERKALEMIA ST ELEV, PROBABLE NORMAL EARLY REPOL PATTERN : Confirmed by: Matilda Salvador MD 10-May-2018 22:18:38
--- NOTE | 2018-05-11 09:57 | ER Document Report ---
Doctor's Note Notes: 05/11/18 09:51 As the rounding physician this AM, I assessed the patient's labs, vitals, and records. No concerning findings this morning. Patient denies any acute complaints. Patient is cleared for disposition by behavioral health team. Behavioral health recommends discontinuation of Seroquel, Zyprexa. We will start BuSpar 10 mg twice daily PHYSICAL EXAMINATION: GENERAL: Well-appearing, well-nourished and in no acute distress. HEAD: Atraumatic, normocephalic. EYES: Pupils equal round extraocular movements intact, conjunctiva are normal. ENT: Nares patent NECK: Normal range of motion LUNGS: No respiratory distress Musculoskeletal: Normal range of motion NEUROLOGICAL: Normal speech, normal gait. PSYCH: Normal mood, normal affect. SKIN: Warm, Dry, normal turgor, no rashes or lesions noted. 05/11/18 14:41
[2018-05-11 15:00] VITALS: BP 114/66
== END 2018-05-11 15:00 | disposition home or self-care (01) ==
LOC: ER 18:01
DX: F41.1 Generalized anxiety disorder (principal); F41.0 Panic disorder [episodic paroxysmal anxiety]; R00.1 Bradycardia, unspecified; Z87.891 Personal history of nicotine dependence; Z79.899 Other long term (current) drug therapy
CPT/HCPCS: 36415; 80053; 80307; 81001; 85025; 93005; 93010; 99284

== ENCOUNTER 2018-05-13 18:53 | Emergency (ER) | payer SELFPAY ==
[2018-05-13 18:58] VITALS: BP 117/80
== END 2018-05-13 19:35 | disposition left against medical advice (07) ==
LOC: ER 18:53
DX: Z53.21 Procedure and treatment not carried out due to patient leaving prior to being seen by health care provider (principal); R11.10 Vomiting, unspecified

== ENCOUNTER 2018-05-15 14:40 | Emergency (ER) | payer OTHER ==
--- NOTE | 2018-05-15 16:23 | ER Document Report ---
HPI - HPI Time Seen by Provider: 05/15/18 16:08 Pain Level: 3 Notes: Patient is a 27-year-old male with a history of mental health disorder who presents to the emergency department complaining of acute on chronic back pain that he has had over the last couple months. Patient states that he feels tightness in his mid back that is worse with movement. The pain does not radiate. Patient states that the pain will occasionally make him have nausea and palpitations which is not uncommon for him when he does experience any pain or stress. He has been seen recently for anxiety and panic attacks recently this month. Denies drug allergies. He has no other concerns or complaints. He has not been seen by any specialist for this issue. He did have a x-ray performed of his thoracic back in April. Denies any history of IV drug abuse or spinal abscess. No history of diabetes. No surgery or previous/recent injections to his back. Denies any headache, fever, neck pain, URI, sore throat, chest pain, palpitations, syncope, cough, shortness of breath, wheeze, dyspnea, abdominal pain, nausea/vomiting/diarrhea, urinary retention, dysuria, hematuria, loss of control of bowel or bladder, numbness/tingling, saddle anesthesia, muscle paralysis/weakness, or rash. - ROS Systems Reviewed and Negative: Yes All other systems reviewed and negative Past Medical History - Social History Smoking Status: Never Smoker Family History: Reviewed & Not Pertinent - ETOH abuse Renal/ Medical History: Denies: Hx Peritoneal Dialysis Psychiatric Medical History: Reports: Hx Bipolar Disorder, Hx Depression - Immunizations Hx Diphtheria, Pertussis, Tetanus Vaccination: Yes Vertical Provider Document - CONSTITUTIONAL Agree With Documented VS: Yes Notes: PHYSICAL EXAMINATION: GENERAL: Well-appearing, well-nourished and in no acute distress. LUNGS: Breath sounds clear to auscultation bilaterally and equal. No wheezes rales or rhonchi. HEART: Regular rate and rhythm without murmurs, rubs, gallops. ABDOMEN: Soft, nontender, nondistended abdomen. No guarding, no rebound. No masses appreciated. Normal bowel sounds present. No CVA tenderness bilater ally. No pulsatile mass Musculoskeletal: Ext's b/l: FROM to passive/active. Strength 5+/5. No deficits noted. No bony tenderness of extremities. Back: FROM to passive/active. Strength 5+/5. No vertebral point tenderness, stepoffs, or deformities. No other bony tenderness, erythema, swelling, or ecchymosis. SLR negative b/l. +trigger point noted that reproduces pt's symptoms to the rt thoracic back near his rt rhomboid. Mild spasming. No SI jt tenderness. No foot drop Extremities: No cyanosis, clubbing, or edema b/l. Peripheral pulses 2+. Capillary refill less than 2 seconds. NEUROLOGICAL: Normal speech, normal gait. Normal sensory, motor exams. Reflexes 2+ b/l. PSYCH: Normal mood, normal affect. SKIN: Warm, Dry, normal turgor, no rashes or lesions noted. - INFECTION CONTROL TRAVEL OUTSIDE OF THE [place] IN LAST 30 DAYS: No Course - Re-evaluation Re-evalutation: 05/15/18 16:21 Patient is an afebrile, well-hydrated, 27-year-old male who presents to the ED with Rt thoracic back pain and trigger point. Vitals are acceptable. PE is otherwise unremarkable for any focal neurological deficits. He has no significant tachycardia, tachypnea, or hypoxia. He is nontoxic-appearing and is tolerating p.o. without difficulties. There are no signs of infection. No other red flag symptoms noted. No other labs or imaging warranted at this time based on H&P. He does not want any PO meds. Low suspicion for any meningitis, fracture, expanding/ruptured AAA, cauda equina syndrome, epidural mass lesion/abscess, herniated disc causing severe spinal stenosis, or other systemic infection at this time. Patient is aware that his condition can change from initial presentation and that he needs monitor symptoms closely for any acute changes. I thoroughly reviewed many options of conservative measures including therapy, strength exercises, acupuncture, massage, Epsom salts soaks, and other modalities that may help. He may also opt for trigger point injections. Conservative measures otherwise for symptoms. Recheck with your PCM in 3-5 days. Consider consult with orthopedic/physical therapy. Return to the ED with any worsening/concerning symptoms otherwise as reviewed discharge. Patient is in agreement. - Vital Signs Vital signs: Temp Pulse Resp BP Pulse Ox 98.9 F 71 20 99/63 L 100 05/15/18 14:54 05/15/18 14:54 05/15/18 14:54 05/15/18 14:54 05/15/18 14:54 Discharge - Discharge Clinical Impression: Trigger point with back pain Condition: Stable Disposition: HOME, SELF-CARE Instructions: Stretching Exercises for the Back ([facility]), Epsom Salt Soaks ([facility]) Additional Instructions: Rest, Ice Tylenol/ibuprofen as needed Light stretches daily Strength exercises as able Moist heat and massage may help F/u with your PCP in 3-5 days for a recheck Consider consult(s) with Orthopedics/physical therapy for ongoing/worsening symptoms May also consider acupuncture and other modalities to help Return to the ED with any worsening symptoms and/or development of fever, headache, chest pain, palpitations, syncope, shortness of breath, trouble breathing, abdominal pain, n/v/d, blood in stool/urine, loss of control of bowel/bladder, urinary retention, muscle weakness/paralysis, saddle anesthesia, numbness/tingling, or other worsening symptoms that are concerning to you. Referrals: [facility] [Provider Group] - Follow up as needed
[2018-05-15 16:40] VITALS: BP 108/68
== END 2018-05-15 16:43 | disposition home or self-care (01) ==
LOC: ER 14:40
DX: G89.29 Other chronic pain (principal); M54.9 Dorsalgia, unspecified; M54.6 Pain in thoracic spine; F41.9 Anxiety disorder, unspecified
CPT/HCPCS: 99283

== ENCOUNTER 2018-05-15 19:38 | Emergency (ER) | payer OTHER ==
[2018-05-15] MEDS ORDERED: ONDANSETRON 4 MG TAB.RAPDIS PO ONE (20:31)
[2018-05-15] MEDS ORDERED: METOCLOPRAMIDE HCL ORAL SOLN 10 MG/10 ML UDCUP PO ONE (20:31)
[2018-05-15] MEDS ORDERED: LIDOCAINE 2% VISCOUS SOLN 20 ML UDCUP PO ONE (20:31)
[2018-05-15] MEDS ORDERED: MAG HYDROX/AL HYDROX/SIMETH SUSP 30 ML UDCUP PO ONE (20:31)
--- NOTE | 2018-05-15 20:35 | ER Document Report ---
HPI - HPI Time Seen by Provider: 05/15/18 20:27 Pain Level: 3 Notes: Patient is a 27-year-old male with mental health disorder and frequent visits emergency department who presents after just discharged him about 2 hours ago now complaining of epigastric abdominal pain with nausea, vomiting, and increased thirst/urination's. I evaluate the patient for reproducible thoracic back pain with trigger point previously. At that time he did not have any of his current complaints, but states that he has had these symptoms intermittently over the last week. Denies drug allergies. No other concerns or complaints. He has not noticed any melena or hematochezia. No surgical history to his abdomen. Patient has had issues with anxiety and panic attacks recently. Den ies any headache, fever, URI, sore throat, chest pain, palpitations, syncope, cough, shortness of breath, wheeze, dyspnea, diarrhea, urinary retention, loss of control of bowel or bladder, numbness/tingling, saddle anesthesia, muscle paralysis/weakness, or rash. - ROS Systems Reviewed and Negative: Yes All other systems reviewed and negative - CONSTITUTIONAL Constitutional: REPORTS: Chills. DENIES: Fever - CARDIOVASCULAR Cardiovascular: REPORTS: Chest pain - URINARY Urinary: REPORTS: Frequency Past Medical History - Social History Smoking Status: Current Every Day Smoker Frequency of alcohol use: stopped binging in march Drug Abuse: Marijuana Family History: Reviewed & Not Pertinent - ETOH abuse Patient has suicidal ideation: No Patient has homicidal ideation: No Renal/ Medical History: Denies: Hx Peritoneal Dialysis Psychiatric Medical History: Reports: Hx Attention Deficit Hyperactivity Disorder, Hx Bipolar Disorder, Hx Depression - Immunizations Hx Diphtheria, Pertussis, Tetanus Vaccination: Yes Vertical Provider Document - CONSTITUTIONAL Agree With Documented VS: Yes Notes: PHYSICAL EXAMINATION: GENERAL: Well-appearing, well-nourished and in no acute distress. HEAD: Atraumatic, normocephalic. EYES: Pupils equal round and reactive to light, extraocular movements intact, sclera anicteric, conjunctiva are normal. ENT: Nares patent and without discharge. oropharynx clear without exudates. No tonsilar hypertrophy or erythema. Moist mucous membranes. NECK: Normal range of motion, supple without lymphadenopathy LUNGS: Breath sounds clear to auscultation bilaterally and equal. No wheezes rales or rhonchi. HEART: Regular rate and rhythm without murmurs, rubs, gallops. ABDOMEN: Soft, nondistended abdomen. No guarding, no rebound. Normal bowel sounds present. No CVA tenderness bilaterally. + tenderness to the epigastrum. Doan negative. Musculoskeletal: FROM to passive/active. Strength 5+/5. Extremities: No cyanosis, clubbing, or edema b/l. Peripheral pulses 2+. Capillary refill less than 3 seconds. NEUROLOGICAL: Cranial nerves grossly intact. Normal speech, normal gait. Normal sensory, motor exams PSYCH: Normal mood, normal affect. SKIN: Warm, Dry, normal turgor, no rashes or lesions noted. - INFECTION CONTROL TRAVEL OUTSIDE OF THE [place] IN LAST 30 DAYS: No Course - Re-evaluation Re-evalutation: 05/15/18 22:06 Patient is an afebrile, well-hydrated, 27-year-old male who presents the emergen cy department with epigastric abdominal pain which is suspect to be gastritis. Vitals are acceptable without significant tachycardia, tachypnea, or hypoxia. PE is otherwise unremarkable. Doan was negative. CBC, CMP, lipase, urinalysis unremarkable for any acute pathology. Patient did receive Zofran as well as a GI cocktail. The GI cocktail did resolve his symptoms. He is nontoxic-appearing and is tolerating p.o. without difficulty. No further labs or imaging warranted at this time. I thoroughly reviewed with the patient for approximately 20 minutes upon my reevaluation foods to avoid and what to expect and where to go next including consult with GI and possible endoscopy. Low hilary picion/risk for acute appendicitis, bowel obstruction, acute cholecystitis, perforated diverticulitis, incarcerated hernia, pancreatitis, perforated ulcer, peritonitis, sepsis, testicular torsion, or other systemic emergent condition at this time. Patient is aware that his condition can change from initial presentation and he needs to monitor symptoms closely and seek medical attention if any acute changes. Conservative measures otherwise for symptoms. Recheck with PCM in 2-3 days. Consider consult with a beef farmer. Return to the ED with any worsening/concerning symptoms otherwise as reviewed in discharge. Patient is in agreement. - Vital Signs Vital signs: Temp Pulse Resp BP Pulse Ox 98.6 F 67 18 120/69 100 05/15/18 19:49 05/15/18 19:49 05/15/18 19:49 05/15/18 19:49 05/15/18 19:49 - Laboratory Result Diagrams: 05/15/18 21:02 05/15/18 21:02 Discharge - Discharge Clinical Impression: Epigastric abdominal pain Condition: Stable Disposition: HOME, SELF-CARE Instructions: Antinausea Medication ([facility]), Abdominal Pain ([facility]) Additional Instructions: Maintain adequate fluid and food intake Diet as reviewed Zofran as needed tylenol if needed Monitor for any worsening symptoms Make sure you are staying hydrated enough to urinate and have normal BM's Recheck with your PCM in 2-3 days Consider consult with Gastroenterology for ongoing/worsening symptoms Return to the ED with any worsening symptoms and/or development of fever, headache, chest pain, palpitations, syncope, shortness of breath, trouble breathing, abdominal pain, n/v/d, blood in stool/urine, weakness, or other worsening symptoms that are concerning to you. Prescriptions: Omeprazole 20 mg PO DAILY #30 tablet. Ondansetron [Zofran Odt 4 mg Tablet] 1 - 2 tab PO Q4H PRN #15 tab.rapdis PRN Reason: For Nausea/Vomiting Sucralfate [Carafate] 1 gm PO BID #100 ml Referrals: SHENG NAVA MD [Primary Care Provider] - Follow up as needed REY MOJICA MD [ACTIVE STAFF] - Follow up as needed
[2018-05-15 21:24] LABS: APPEARANCE,URINE CLEAR; BILIRUBIN,URINE NEGATIVE (NEGATIVE); COLOR,URINE STRAW; GLUCOSE, URINE NEGATIVE (NEGATIVE); KETONES,URINE NEGATIVE (NEGATIVE); LEUKOCYTE ESTERASE,URINE NEGATIVE (NEGATIVE); NITRITE,URINE NEGATIVE (NEGATIVE); PROTEIN,URINE NEGATIVE (NEGATIVE); URINE SPECIFIC GRAVITY 1.004; UROBILINOGEN,URINE NEGATIVE mg/dL (<2.0)
[2018-05-15 21:25] LABS: ABSOLUTE BASOPHILS # (AUTO) 0.1 10^3/uL (0.0-0.2); ABSOLUTE LYMPHOCYTES (AUTO) 1.9 10^3/uL (0.5-4.7); ABSOLUTE MONOCYTES (AUTO) 0.6 10^3/uL (0.1-1.4); ABSOLUTE NEUT (AUTO) 2.6 10^3/uL (1.7-8.2); BASOPHILS % (AUTO) 1.2 % (0-2); EOSINOPHILS % (AUTO) 0.9 % (0-6); HEMOGLOBIN 14.3 g/dL (13.5-17.0); LYMPHOCYTES % (AUTO) 36.5 % (13-45); MEAN CORPUSCULAR HEMOGLOBIN 33.8 pg (27.0-33.4); MEAN CORPUSCULAR HGB CONC 35.6 g/dL (32.0-36.0); MEAN CORPUSCULAR VOLUME 95 fl (80-97); MONOCYTES % (AUTO) 10.8 % (3-13); PLATELET COUNT 240 10^3/uL (150-450); RED BLOOD COUNT 4.22 10^6/uL (4.35-5.55); RED CELL DISTRIBUTION WIDTH 12.3 % (11.5-14.0); SEGMENTED NEUTROPHILS % (AUTO) 50.6 % (42-78); TOTAL CELLS COUNTED % (AUTO) 100 %; WHITE BLOOD COUNT 5.1 10^3/uL (4.0-10.5)
[2018-05-15 21:45] LABS: ALANINE AMINOTRANSFERASE 26 U/L (21-72); ALBUMIN 4.7 g/dL (3.5-5.0); ALKALINE PHOSPHATASE 47 U/L (38-126); ANION GAP 13 (5-19); ASPARTATE AMINO TRANSFERASE 20 U/L (17-59); BILIRUBIN,DIRECT 0.2 mg/dL (0.0-0.4); BILIRUBIN,TOTAL 0.5 mg/dL (0.2-1.3); BLOOD UREA NITROGEN 10 mg/dL (7-20); CALCIUM 9.6 mg/dL (8.4-10.2); CARBON DIOXIDE 23 mmol/L (22-30); CHLORIDE 102 mmol/L (98-107); GLUCOSE 101 mg/dL (75-110); LIPASE 102.6 U/L (23-300); POTASSIUM 3.3 mmol/L (3.6-5.0); SODIUM 137.9 mmol/L (137-145); TOTAL PROTEIN 7.3 g/dL (6.3-8.2)
[2018-05-15 22:20] VITALS: BP 127/77
== END 2018-05-15 22:20 | disposition home or self-care (01) ==
LOC: ER 19:38
DX: R10.13 Epigastric pain (principal); R11.2 Nausea with vomiting, unspecified; F17.200 Nicotine dependence, unspecified, uncomplicated
CPT/HCPCS: 99283; 36415; 87086; 82962; 83690; 85025; 80053; 81001; S0119; J3490

== ENCOUNTER 2018-05-16 21:55 | Emergency (ER) | payer OTHER ==
--- NOTE | 2018-05-16 21:59 | ER Document Report ---
ED Medical Screen (RME) - General Stated Complaint: HEADACHE Time Seen by Provider: 05/16/18 21:58 Primary Care Provider: SHENG NAVA MD [Primary Care Provider] - Follow up as needed Mode of Arrival: Ambulatory Information source: Patient Notes: PT SEEN HERE YESTERDAY FOR N/V STILL VOMITING TAKING ZOFRAN NOW HAS RAM I have greeted and performed a rapid initial assessment of this patient. A comprehensive ED assessment and evaluation of the patient, analysis of test results and completion of the medical decision making process will be conducted by additional ED providers. TRAVEL OUTSIDE OF THE [place] IN LAST 30 DAYS: No - Related Data Allergies/Adverse Reactions: No Known Allergies Allergy (Verified 05/15/18 19:39) Past Medical History Renal/ Medical History: Denies: Hx Peritoneal Dialysis Psychiatric Medical History: Reports: Hx Attention Deficit Hyperactivity Disorder, Hx Bipolar Disorder, Hx Depression - Immunizations Hx Diphtheria, Pertussis, Tetanus Vaccination: Yes Course - Laboratory Result Diagrams: 05/16/18 22:30 05/16/18 22:30 Laboratory results interpreted by me: 05/16/18 22:30 RBC 4.21 L [facility] 34.1 H Monocytes % 13.3 H Doctor's Discharge - Discharge Clinical Impression: Headache, Nausea and vomiting Additional Instructions: You were seen today in the emergency department for a headache, nausea and vomiting, weakness, and a racing heart rate. Your symptoms resolved on their own here in the emergency department. Your labs are normal. If Zofran and Phenergan do not to help you, please do not take them and let your viral infections run their course. You can take Tylenol 1000 mill grams every 6 hours as needed if you have a headache. Referrals: SHENG NAVA MD [Primary Care Provider] - Follow up as needed
[2018-05-16 22:53] LABS: ABSOLUTE BASOPHILS # (AUTO) 0.1 10^3/uL (0.0-0.2); ABSOLUTE EOSINOPHILS # (AUTO) 0.1 10^3/uL (0.0-0.6); ABSOLUTE MONOCYTES (AUTO) 0.6 10^3/uL (0.1-1.4); BASOPHILS % (AUTO) 1.7 % (0-2); EOSINOPHILS % (AUTO) 1.5 % (0-6); HEMOGLOBIN 14.4 g/dL (13.5-17.0); LYMPHOCYTES % (AUTO) 41.5 % (13-45); MEAN CORPUSCULAR HEMOGLOBIN 34.1 pg (27.0-33.4); MEAN CORPUSCULAR HGB CONC 35.9 g/dL (32.0-36.0); MEAN CORPUSCULAR VOLUME 95 fl (80-97); MONOCYTES % (AUTO) 13.3 % (3-13); PLATELET COUNT 240 10^3/uL (150-450); RED BLOOD COUNT 4.21 10^6/uL (4.35-5.55); TOTAL CELLS COUNTED % (AUTO) 100 %; WHITE BLOOD COUNT 4.8 10^3/uL (4.0-10.5)
[2018-05-16 23:04] LABS: ALANINE AMINOTRANSFERASE 21 U/L (21-72); ALBUMIN 4.6 g/dL (3.5-5.0); ALKALINE PHOSPHATASE 46 U/L (38-126); ANION GAP 13 (5-19); ASPARTATE AMINO TRANSFERASE 21 U/L (17-59); BILIRUBIN,DIRECT 0.1 mg/dL (0.0-0.4); BILIRUBIN,TOTAL 0.5 mg/dL (0.2-1.3); BLOOD UREA NITROGEN 12 mg/dL (7-20); CALCIUM 9.5 mg/dL (8.4-10.2); CARBON DIOXIDE 27 mmol/L (22-30); CHLORIDE 98 mmol/L (98-107); GLUCOSE 82 mg/dL (75-110); POTASSIUM 3.8 mmol/L (3.6-5.0); SODIUM 137.5 mmol/L (137-145); TOTAL PROTEIN 7.4 g/dL (6.3-8.2)
--- NOTE | 2018-05-17 01:48 | ER Document Report ---
ED General - General Stated Complaint: HEADACHE Time Seen by Provider: 05/16/18 21:58 Primary Care Provider: SHENG NAVA MD [Primary Care Provider] - Follow up as needed Mode of Arrival: Ambulatory Notes: Patient is a 27-year-old male who presents to the emergency department with a chief complaint of nausea and vomiting and headaches after taking Zofran at home. He was seen twice here in the emergency department and was diagnosed with a viral infections and sent home with Zofran. He states that every time he takes Zofran or Phenergan it makes his symptoms worse and makes his heart rate, although his heart rate is 66 here in the hospital. He states that he feels better now that the Zofran has worn off his last dose was earlier today. He has a past medical history of anxiety and he has been in the emergency department 6 times just in the month of May. TRAVEL OUTSIDE OF THE [place] IN LAST 30 DAYS: No - Related Data Allergies/Adverse Reactions: No Known Allergies Allergy (Verified 05/15/18 19:39) Past Medical History - General Information source: Patient - Social History Smoking Status: Unknown if Ever Smoked Family History: Reviewed & Not Pertinent - ETOH abuse Renal/ Medical History: Denies: Hx Peritoneal Dialysis Psychiatric Medical History: Reports: Hx Attention Deficit Hyperactivity Disorder, Hx Bipolar Disorder, Hx Depression - Immunizations Hx Diphtheria, Pertussis, Tetanus Vaccination: Yes Review of Systems - Review of Systems Notes: REVIEW OF SYSTEMS: CONSTITUTIONAL : Denies recent illness. Denies recent unintentional weight loss. Denies fever, chills, or sweats. EENT: Denies eye, ear, throat, or mouth pain, discharge, or symptoms. Denies nasal or sinus congestion. CARDIOVASCULAR: Denies chest pain. RESPIRATORY: Denies shortness of breath, cough, congestion, difficulty breathing, or wheezing. GASTROINTESTINAL: See HPI GENITOURINARY: Denies difficulty urinating, burning, blood in urine, urgency or frequency. MUSCULOSKELETAL: Denies neck and back pain. Denies joint pain or swelling. SKIN: Denies rash, itchiness, or lesions HEMATOLOGIC : Denies easy bruising or bleeding. LYMPHATIC: Denies swollen, painful, enlarged glands. NEUROLOGICAL: See HPI. PSYCHIATRIC: See HPI. All other systems reviewed and negative. Physical Exam - Notes Notes: PHYSICAL EXAMINATION: GENERAL: Appears well, healthy, well-nourished, no acute distress. HEAD: Normocephalic, atraumatic. EYES: PERRL, conjunctiva normal, all extraocular movements intact, sclera nonicteric ENT: Moist mucous membranes. NECK: Supple, no noticeable swelling, redness, rash. Normal range of motion. LUNGS: Equal breath sounds bilaterally and clear to auscultation. No wheezes rales or rhonchi. CARDIOVASCULAR: S1-S2, regular rate, regular rhythm. Radial pulses 2+, normal. ABDOMEN: Normoactive bowel sounds. Soft, nontender, no guarding, no rebound tenderness, and no masses palpated. EXTREMITIES: Normal strength and range of motion, no pitting or edema. No cyanosis. NEUROLOGICAL: Moves all extremities upon command. Strength 5/5 in all ext remities. PSYCH: Normal mood, normal affect. SKIN: Warm, dry. No rash, lesions, ulcerations noted. Normal skin turgor. Course - Re-evaluation Re-evalutation: 05/17/18 01:48 Patient's hematology is unremarkable. His chemistries are normal. I do not suspect the patient has an intracranial hemorrhage, because his headache reso lved spontaneously on its own. I do not suspect any life-threatening etiology. I suspect patient may have his symptoms because of his anxiety and he "googles" everything. I have advised the patient to not take Zofran and Phenergan anymore if it makes his symptoms worse. I have advised him that he can let the virus run its course and that the usual treatment for any viral infection is symptom c ontrol. He verbalized understanding and will not take Zofran or Phenergan anymore. I have also advised him to follow-up with [facility] for routine health care. Verbal discharge instructions were given to the patient. They verbalized understanding. They are stable for discharge. - Laboratory Result Diagrams: 05/16/18 22:30 05/16/18 22:30 Laboratory results interpreted by me: 05/16/18 22:30 RBC 4.21 L MCH 34.1 H Monocytes % 13.3 H Discharge - Discharge Clinical Impression: Headache Qualifiers: Headache type: unspecified Headache chronicity pattern: unspecified pattern Intractability: not intractable Qualified Code(s): R51 - Headache Nausea and vomiting Qualifiers: Vomiting type: unspecified Vomiting Intractability: non-intractable Qualified Code(s): R11.2 - Nausea with vomiting, unspecified Condition: Good Disposition: HOME, SELF-CARE Additional Instructions: You were seen today in the emergency department for a headache, nausea and vomiting, weakness, and a racing heart rate. Your symptoms resolved on their own here in the emergency department. Your labs are normal. If Zofran and Phenergan do not to help you, please do not take them and let your viral infections run their course. You can take Tylenol 1000 mill grams every 6 hours as needed if you have a headache. Referrals: SHENG NAVA MD [Primary Care Provider] - Follow up as needed
== END 2018-05-17 02:12 | disposition home or self-care (01) ==
LOC: ER 21:55
DX: R51 Headache (principal); R11.2 Nausea with vomiting, unspecified
CPT/HCPCS: 36415; 80053; 85025; 99284

== ENCOUNTER 2018-05-18 21:57 | Emergency (ER) | payer OTHER ==
[2018-05-18 22:25] VITALS: BP 113/66
== END 2018-05-19 00:50 | disposition left against medical advice (07) ==
LOC: ER 21:57
DX: Z53.21 Procedure and treatment not carried out due to patient leaving prior to being seen by health care provider (principal)

== ENCOUNTER → 2018-05-21 | Outpatient (CLI) | payer OTHER ==
[2018-05-21 12:12] LABS: HEMATOCRIT 40.2 % (37.9-51.0); HEMOGLOBIN 14.5 g/dL (13.5-17.0); MEAN CORPUSCULAR HEMOGLOBIN 34.3 pg (27.0-33.4); MEAN CORPUSCULAR VOLUME 95 fl (80-97); PLATELET COUNT 203 10^3/uL (150-450); RED BLOOD COUNT 4.22 10^6/uL (4.35-5.55); WHITE BLOOD COUNT 3.2 10^3/uL (4.0-10.5)
[2018-05-21 12:27] LABS: ALANINE AMINOTRANSFERASE 25 U/L (21-72); ALBUMIN 4.5 g/dL (3.5-5.0); ALKALINE PHOSPHATASE 48 U/L (38-126); ANION GAP 11 (5-19); ASPARTATE AMINO TRANSFERASE 20 U/L (17-59); BILIRUBIN,DIRECT 0.1 mg/dL (0.0-0.4); BILIRUBIN,TOTAL 1.2 mg/dL (0.2-1.3); BLOOD UREA NITROGEN 11 mg/dL (7-20); CALCIUM 9.5 mg/dL (8.4-10.2); CARBON DIOXIDE 27 mmol/L (22-30); CHLORIDE 98 mmol/L (98-107); CHOLESTEROL 99.15 mg/dL (0-200); GLUCOSE 76 mg/dL (75-110); POTASSIUM 4.3 mmol/L (3.6-5.0); SODIUM 135.8 mmol/L (137-145); TOTAL PROTEIN 7.5 g/dL (6.3-8.2); TRIGLYCERIDES 38 mg/dL (<150)
[2018-05-21 12:38] LABS: ABSOLUTE LYMPHOCYTES# (MANUAL) 1.6 10^3/uL (0.5-4.7); ABSOLUTE MONOCYTES # (MANUAL) 0.2 10^3/uL (0.1-1.4); ABSOLUTE NEUTROPHILS# (MANUAL) 1.3 10^3/uL (1.7-8.2); BASOPHILS % (MANUAL) 0 % (0-2); DIRECT LDL 46 mg/dL (<100); EOSINOPHILS % (MANUAL) 1 % (0-6); LYMPHOCYTES % (MANUAL) 44 % (13-45); MONOCYTES % (MANUAL) 7 % (3-13); SEGMENTED NEUTROPHILS % (MAN) 42 % (42-78); TOTAL CELLS COUNTED 100
[2018-05-21 12:40] LABS: PLATELET COMMENT ADEQUATE; RBC MORPHOLOGY COMMENT NORMO-CYTIC/CHROMIC
[2018-05-21 12:44] LABS: FREE T4 (FREE THYROXINE) 1.4 ng/dL (0.78-2.19)
[2018-05-21 12:57] LABS: THYROID STIMULATING HORMONE 1.13 uIU/mL (0.47-4.68)
== END ==
LOC: CCC 11:33
DX: R07.9 Chest pain, unspecified (principal)
CPT/HCPCS: 36415; 80053; 80061; 83036; 84439; 84443; 85025

== ENCOUNTER 2018-08-28 10:05 | Emergency (ER) | payer OTHER ==
--- NOTE | 2018-08-28 10:25 | ER Document Report ---
Addendum entered and electronically signed by PASCALE ESPAÑA LPC 08/28/18 16:01: Discharge - Discharge Clinical Impression: Poor sleep, Anxiety, History of bipolar disorder Condition: Stable Disposition: HOME, SELF-CARE Additional Instructions: You have been evaluated by both medical and behavioral health providers while in the emergency department. You have been cleared from both acute medical and psychiatric services. Your chief complaints were of poor sleep and anxiety. You noted a history of Bipolar and not taking medications due to side effects. Insomnia (poor sleep, may not be insomnia) Everybody has trouble sleeping now and then. When it becomes a frequent problem, you must look for an underlying cause. Depression can interfere with sleep. Anxiety keeps people from falling asleep, while true depression causes fitful sleep and early awakening. If you think anxiety or depression might be your problem, your doctor can help. Many medicines can interfere with sleep. Try cutting back or eliminating caffeine. Watch out for "energizing" vitamins and herbs! Alcohol interferes powerfully with normal sleep. "Rebound insomnia" results when you stop taking sedating medicines like antihistamines, antianxiety medicine, or sleeping pills. Any medical problem that causes pain or bladder discomfort can interfere with sleep. Discuss any problem you have with your doctor. Get regular exercise. Have regular sleep times. Don't "sleep in." Avoid late afternoon naps. Sleeping pills may be temporarily helpful, but are never a long-term solution. Anxiety The physician feels that some of your health problems are being caused by anxiety. Anxiety affects your health in many ways. Anxiety alone can cause palpitations, sweats, chest pains, abdominal pains, shortness of breath, and headaches. It contributes to ulcer disease, high blood pressure, irritable bowel syndrome, and has been shown to cause flare-ups of many other diseases. Anxiety is not a simple disorder to treat. If the anxiety is due to recent life stresses, you may simply need time to "work through" the changes. If the anxiety is due to an underlying unhappiness with yourself or due to psychiatric disturbance, professional help will be needed. Your physician can refer you for further help if needed. Anti-anxiety medication is occasionally given if the stress is acute or if you are having trouble sleeping. Chronic or frequent use of these medications is not a good idea because the body becomes reliant on it, preventing you from dealing with life's normal stresses. Follow-Up Plan: You have been scheduled with outpatient mental health follow up at [facility] on 09/01/18 at 0800 for medications management and therapy. You have been provided the [facility] Mobile Crisis number for crisis, talk therapy and linkage to other services/supports. If your symptoms persist or worsen you should contact your physician immediately, utilize mobile crisis or return to the emergency department. Referrals: SHADI CHEEK [NO LOCAL MD] - Follow up as needed [facility] [Outside] - Follow up as needed [facility] [Provider Group] - 09/01/18 8:00 am Original Note: ED Medical Screen (RME) - General Chief Complaint: Anxiety Stated Complaint: CHEST PAIN Time Seen by Provider: 08/28/18 10:22 Primary Care Provider: SHADI CHEEK [Primary Care Provider] - Follow up as needed Mode of Arrival: Ambulatory Information source: Patient Notes: 28-year-old male presented to ED for complaint of confusion headache chest pain fatigue and feeling weird in his chest. 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 He states he does not know if it is from his drinking and not sleeping or what but he is just feeling weird today. He states he drinks 6-8 beers every night and does not sleep more than 2 to 3 hours a night. He states he cannot sleep so he drinks trying to go to sleep. He states last night he went to bed at 430 and got up at 730 this morning. He states he drank at least 8 beers yesterday. He states he has been doing this for a while. He states he is bipolar but does not take his bipolar medicine. I have greeted and performed a rapid initial assessment of this patient. A comprehensive ED assessment and evaluation of the patient, analysis of test results and completion of medical decision making process will be conducted by an additional ED providers. Dictation of this chart was performed using voice recognition software; therefore, there may be some unintended grammatical errors. TRAVEL OUTSIDE OF THE [place] IN LAST 30 DAYS: No - Related Data Allergies/Adverse Reactions: No Known Allergies Allergy (Verified 08/28/18 10:06) Past Medical History Renal/ Medical History: Denies: Hx Peritoneal Dialysis Psychiatric Medical History: Reports: Hx Attention Deficit Hyperactivity Disorder, Hx Bipolar Disorder, Hx Depression - Immunizations Hx Diphtheria, Pertussis, Tetanus Vaccination: Yes Physical Exam - Vital signs Vitals: Temp Pulse Resp BP Pulse Ox 97.9 F 92 18 121/73 100 08/28/18 10:10 08/28/18 10:10 08/28/18 10:10 08/28/18 10:10 08/28/18 10:10 Course - Vital Signs Vital signs: Temp Pulse Resp BP Pulse Ox 97.9 F 92 18 121/73 100 08/28/18 10:10 08/28/18 10:10 08/28/18 10:10 08/28/18 10:10 08/28/18 10:10 Doctor's Discharge - Discharge Referrals: [facility] [Primary Care Provider] - Follow up as needed
[2018-08-28 10:46] LABS: ABSOLUTE BASOPHILS # (AUTO) 0.1 10^3/uL (0.0-0.2); ABSOLUTE EOSINOPHILS # (AUTO) 0.1 10^3/uL (0.0-0.6); ABSOLUTE LYMPHOCYTES (AUTO) 1.9 10^3/uL (0.5-4.7); ABSOLUTE MONOCYTES (AUTO) 0.6 10^3/uL (0.1-1.4); ABSOLUTE NEUT (AUTO) 1.8 10^3/uL (1.7-8.2); BASOPHILS % (AUTO) 1.2 % (0-2); EOSINOPHILS % (AUTO) 2.6 % (0-6); HEMATOCRIT 44.4 % (37.9-51.0); HEMOGLOBIN 15.6 g/dL (13.5-17.0); LYMPHOCYTES % (AUTO) 42.7 % (13-45); MEAN CORPUSCULAR HEMOGLOBIN 33.7 pg (27.0-33.4); MEAN CORPUSCULAR HGB CONC 35.2 g/dL (32.0-36.0); MEAN CORPUSCULAR VOLUME 96 fl (80-97); MONOCYTES % (AUTO) 14.1 % (3-13); PLATELET COUNT 246 10^3/uL (150-450); RED BLOOD COUNT 4.62 10^6/uL (4.35-5.55); RED CELL DISTRIBUTION WIDTH 11.7 % (11.5-14.0); SEGMENTED NEUTROPHILS % (AUTO) 39.4 % (42-78); TOTAL CELLS COUNTED % (AUTO) 100 %; WHITE BLOOD COUNT 4.5 10^3/uL (4.0-10.5)
[2018-08-28 10:57] LABS: APPEARANCE,URINE CLEAR; BILIRUBIN,URINE NEGATIVE (NEGATIVE); COLOR,URINE STRAW; GLUCOSE, URINE NEGATIVE (NEGATIVE); KETONES,URINE NEGATIVE (NEGATIVE); LEUKOCYTE ESTERASE,URINE NEGATIVE (NEGATIVE); NITRITE,URINE NEGATIVE (NEGATIVE); PROTEIN,URINE NEGATIVE (NEGATIVE); URINE SPECIFIC GRAVITY 1.006; UROBILINOGEN,URINE NEGATIVE mg/dL (<2.0)
[2018-08-28 11:09] LABS: ALANINE AMINOTRANSFERASE 16 U/L (21-72); ALBUMIN 4.9 g/dL (3.5-5.0); ALKALINE PHOSPHATASE 43 U/L (38-126); ANION GAP 13 (5-19); ASPARTATE AMINO TRANSFERASE 21 U/L (17-59); BILIRUBIN,DIRECT 0.2 mg/dL (0.0-0.4); BILIRUBIN,TOTAL 0.6 mg/dL (0.2-1.3); BLOOD UREA NITROGEN 10 mg/dL (7-20); CALCIUM 9.7 mg/dL (8.4-10.2); CARBON DIOXIDE 27 mmol/L (22-30); CHLORIDE 99 mmol/L (98-107); GLUCOSE 100 mg/dL (75-110); LIPASE 70.5 U/L (23-300); POTASSIUM 3.8 mmol/L (3.6-5.0); SODIUM 138.8 mmol/L (137-145)
[2018-08-28 11:11] LABS: ALCOHOL < 10 mg/dL (NONE DETECTED)
[2018-08-28 11:17] LABS: URINE AMPHETAMINES SCREEN NEGATIVE; URINE BARBITURATES SCREEN NEGATIVE; URINE BENZODIAZEPINES SCREEN NEGATIVE; URINE COCAINE SCREEN NEGATIVE; URINE MARIJUANA (THC) SCREEN NEGATIVE; URINE METHADONE SCREEN NEGATIVE; URINE PHENCYCLIDINE SCREEN NEGATIVE
--- NOTE | 2018-08-28 11:40 | RADIOLOGY REPORT (SQ) ---
EXAM DESCRIPTION: CHEST 2 VIEWS COMPLETED DATE/TIME: 08/28/2018 11:09 am REASON FOR STUDY: chest pain no sleep alcohol COMPARISON: 05/08/2018 EXAM PARAMETERS: NUMBER OF VIEWS: two views TECHNIQUE: Digital Frontal and Lateral radiographic views of the chest acquired. RADIATION DOSE: NA LIMITATIONS: none FINDINGS: LUNGS AND PLEURA: No opacities, masses or pneumothorax. No pleural effusion. MEDIASTINUM AND HILAR STRUCTURES: No masses or contour abnormalities. HEART AND VASCULAR STRUCTURES: Heart normal size. No evidence for failure. BONES: No acute findings. HARDWARE: None in the chest. OTHER: No other significant finding. IMPRESSION: NO ACUTE RADIOGRAPHIC FINDING IN THE CHEST. TECHNICAL DOCUMENTATION: JOB ID: [id number] [employer]- All Rights Reserved Reading location - IP/workstation name: [email or web address]
--- NOTE | 2018-08-28 15:06 | PSYCHOLOGICAL NOTE ---
Psych Note - Psych Note Date seen by psych provider: 08/28/18 Psych Note: Presenting Problem: Anxiety, poor sleep (2-3 hours a night), drinking 6-8 beers a night for the last 3 weeks to try to sleep. Does have a FT job where he works until [id number], takes time to wind down, might get to sleep by 0400 and then has to be to school by 0700. He has been to [facility] and [facility] for medication management. He reported he has not been anywhere since [facility] March 2018. Previous medications that have been ineffective include: Abilify, Cymbalta, Seroquel (increased anxiety, tiredness, restlessness), Latuda (increased restlessness and difficulty sleeping), Zyprexa (increased SI), Buspar (felt messed up, dilated pupils, very anxious). He admitted 4 years ago he used MBME (a fake, synthetic hallucinogen, like acid) and since then his "anxiety has been an issue, caffeine effects it, I can't smoke weed, i can't take medication, only drugs that slow down my thought processes help." He denied previous MH hospitalizations. Mom was at bedside. She said she did not know her family history. Diagnosis: Poor Sleep Increased Anxiety 296.80 (F31.9) Unspecified Bipolar and Related Disorder (possibly substance induced due to report of MBME use 4 years ago and issues since) Medication recommendations made by the psychiatric medical provider, Dr. Sonal MD., includes: Add Buspar 5MG in the morning for anxiety/calming effect Add Buspar 10MG at night for anxiety/calming effect/depression/sleep Impression/Plan: Patient is cleared from acute psychiatric services. He denied SI/HI, no observed psychosis and these were not presenting concerns. Scheduled outpatient follow up with [facility] [place] on 09/01/18 at 0800. Mother included in plan of care. Patient provided with outpatient MH resource sheet which documented appointment date and time, as well as highlighted [facility] MCM for crisis/talk therapy/linkage to other services and supports. Consulted with Dr. López regarding the management and care of patient. ED Physician in agreement with recommendations.
--- NOTE | 2018-08-28 16:27 | ER Document Report ---
ED Psych Disorder / Suicide - General Chief Complaint: Anxiety Stated Complaint: CHEST PAIN Time Seen by Provider: 08/28/18 10:22 Primary Care Provider: [facility] [place] [Provider Group] - 09/01/18 8:00 am [facility] Crisis Team [Outside] - Follow up as needed [facility] [NO LOCAL MD] - Follow up as needed Mode of Arrival: Ambulatory TRAVEL OUTSIDE OF THE [place] IN LAST 30 DAYS: No - HPI Patient complains to provider of: Other Onset: Last week Onset was: Gradual Quality of pain: No pain Suicide Risk Factors: Bipolar, Depressed, Substance abuse. No: Age <19 Situational problems related to: School, Work Associated symptoms: Flat affect Notes: 28-year-old male history of bipolar. Not taking medications by his own choice. He says most medications make him suicidal. Denies suicidal or homicidal ideation. No chest pain now. He did have chest pain earlier when he had an anxiety attack it sounds like. No abdominal pain no back pain. He admits that he has been drinking more alcohol at night to help control his symptoms. He is here with his mother today. Asking for help and asking to speak to the psychologist. - Related Data Allergies/Adverse Reactions: No Known Allergies Allergy (Verified 08/28/18 10:06) Past Medical History - General Information source: Patient - Social History Smoking Status: Former Smoker Chew tobacco use (# tins/day): No Frequency of alcohol use: Heavy Drug Abuse: None Lives with: Family Family History: Reviewed & Not Pertinent - ETOH abuse Patient has suicidal ideation: No Patient has homicidal ideation: No - Medical History Medical History: Negative Renal/ Medical History: Denies: Hx Peritoneal Dialysis Psychiatric Medical History: Reports: Hx Attention Deficit Hyperactivity Disorder, Hx Bipolar Disorder, Hx Depression - Immunizations Hx Diphtheria, Pertussis, Tetanus Vaccination: Yes Review of Systems - Review of Systems Constitutional: No symptoms reported Cardiovascular: Chest pain Neurological/Psychological: Anxiety, Headaches. denies: Suicidal ideation Physical Exam - Vital signs Vitals: Temp Pulse Resp BP Pulse Ox 97.9 F 92 18 121/73 100 08/28/18 10:10 08/28/18 10:10 08/28/18 10:10 08/28/18 10:10 08/28/18 10:10 - Notes Notes: PHYSICAL EXAMINATION: GENERAL: Well-appearing, well-nourished and in no acute distress. HEAD: Atraumatic, normocephalic. EYES: Pupils equal round and reactive to light, extraocular movements intact, sclera anicteric, conjunctiva are normal. ENT: nares patent, oropharynx clear without exudates. Moist mucous membranes. NECK: Normal range of motion, supple without lymphadenopathy LUNGS: Breath sounds clear to auscultation bilaterally and equal. No wheezes rales or rhonchi. HEART: Regular rate and rhythm without murmurs ABDOMEN: Soft, nontender, normoactive bowel sounds. No guarding, no rebound. No masses appreciated. EXTREMITIES: Normal range of motion, no pitting or edema. No cyanosis. NEUROLOGICAL: No focal neurological deficits. Moves all extremities spontaneously and on command. PSYCH: Normal mood, flat affect SKIN: Warm, Dry, normal turgor, no rashes or lesions noted. Course - Vital Signs Vital signs: Temp Pulse Resp BP Pulse Ox 97.9 F 92 18 121/73 100 08/28/18 10:10 08/28/18 10:10 08/28/18 10:10 08/28/18 10:10 08/28/18 10:10 - Laboratory Result Diagrams: 08/28/18 10:30 08/28/18 10:30 Laboratory results interpreted by me: 08/28/18 08/28/18 10:30 10:30 MCH 33.7 H Seg Neutrophils % 39.4 L Monocytes % 14.1 H ALT 16 L - EKG Interpretation by Ct EKG shows normal: Sinus rhythm Rate: Normal Rhythm: NSR When compared to previous EKG there are: No significant change - Transfer of Care Notes: 08/28/18 16:25 Social workers have seen the patient here in the discussed the case with the ps ychiatrist. They offered to start him on BuSpar twice a day patient declined. Have set him up for outpatient follow-up Saturday next week. He is okay with this and wants to be discharged home. 08/28/18 16:35 EKG is normal sinus rhythm nothing acute. Patient is stable for discharge home and follow-up with psychiatrist this week. Discharge - Discharge Clinical Impression: Poor sleep, Anxiety, History of bipolar disorder Condition: Stable Disposition: HOME, SELF-CARE Additional Instructions: You have been evaluated by both medical and behavioral health providers while in the emergency department. You have been cleared from both acute medical and psychiatric services. Your chief complaints were of poor sleep and anxiety. You noted a history of Bipolar and not taking medications due to side effects. Insomnia (poor sleep, may not be insomnia) Everybody has trouble sleeping now and then. When it becomes a frequent problem, you must look for an underlying cause. Depression can interfere with sleep. Anxiety keeps people from falling asleep, while true depression causes fitful sleep and early awakening. If you think anxiety or depression might be your problem, your doctor can help. Many medicines can interfere with sleep. Try cutting back or eliminating caffeine. Watch out for "energizing" vitamins and herbs! Alcohol interferes powerfully with normal sleep. "Rebound insomnia" results when you stop taking sedating medicines like antihistamines, antianxiety medicine, or sleeping pills. Any medical problem that causes pain or bladder discomfort can interfere with sleep. Discuss any problem you have with your doctor. Get regular exercise. Have regular sleep times. Don't "sleep in." Avoid late afternoon naps. Sleeping pills may be temporarily helpful, but are never a long-term solution. Anxiety The physician feels that some of your health problems are being caused by an xiety. Anxiety affects your health in many ways. Anxiety alone can cause palpitations, sweats, chest pains, abdominal pains, shortness of breath, and headaches. It contributes to ulcer disease, high blood pressure, irritable bowel syndrome, and has been shown to cause flare-ups of many other diseases. Anxiety is not a simple disorder to treat. If the anxiety is due to recent life stresses, you may simply need time to "work through" the changes. If the anxiety is due to an underlying unhappiness with yourself or due to psychiatric disturbance, professional help will be needed. Your physician can refer you for further help if needed. Anti-anxiety medication is occasionally given if the stress is acute or if you are having trouble sleeping. Chronic or frequent use of these medications is not a good idea because the body becomes reliant on it, preventing you from dealing with life's normal stresses. Follow-Up Plan: You have been scheduled with outpatient mental health follow up at [facility] on 09/01/18 at 0800 for medications management and therapy. You have been provided the [facility] Mobile Crisis number for crisis, talk therapy and linkage to other services/supports. If your symptoms persist or worsen you should contact your physician immediately, utilize mobile crisis or return to the emergency department. Referrals: [facility] [place] [Provider Group] - 09/01/18 8:00 am [facility] Crisis Team [Outside] - Follow up as needed [facility] [NO LOCAL MD] - Follow up as needed
[2018-08-28 17:28] LABS: ACETAMINOPHEN < 10 ug/mL (10-30); SALICYLATE < 1.0 mg/dL (2.0-20.0)
[2018-08-28 17:59] VITALS: BP 110/70
--- NOTE | 2018-08-28 23:13 | EKG REPORT ---
SEVERITY:- BORDERLINE ECG - SINUS RHYTHM INFERIOR Q WAVES, PROBABLY NORMAL VARIATION : Confirmed by: Yahaira Rendon 28-Aug-2018 23:12:32
== END 2018-08-28 18:01 | disposition home or self-care (01) ==
LOC: ER 10:05
DX: F41.9 Anxiety disorder, unspecified (principal); G47.9 Sleep disorder, unspecified; R07.9 Chest pain, unspecified
CPT/HCPCS: 36415; 71046; 80053; 80307; 81001; 82553; 83690; 85025; 93005; 93010; 99284

== ENCOUNTER 2019-02-12 13:41 | Emergency (ER) | payer OTHER ==
[2019-02-12] MEDS ORDERED: ONDANSETRON HCL INJ/PF 4 MG/2 ML SDV IV ONE (14:00)
--- NOTE | 2019-02-12 14:02 | ER Document Report ---
ED Medical Screen (RME) - General Chief Complaint: Vomiting Stated Complaint: VOMITING,CHEST TIGHTNESS,WEAKNESS Time Seen by Provider: 02/12/19 13:57 TRAVEL OUTSIDE OF THE [place] IN LAST 30 DAYS: No - HPI Notes: 02/12/19 14:01 Patient is a 28-year-old male with history of mental health disorders who presents complaining of nausea, vomiting, diarrhea that began this morning. Patient states that he also had chest tightness in the car and feeling of shortness of breath at that time. Pain did not radiate. Patient states that he cannot keep anything down. No fever or dysuria. No back pain. I have treated and performed a rapid initial assessment of this patient. A comprehensive ED assessment and evaluation of the patient, analysis of test results and completion of medical decision making process will be conducted by additional ED providers. PHYSICAL EXAMINATION: GENERAL: Well-appearing, well-nourished and in no acute distress. A&Ox4. Answers questions appropriately. LUNGS: Breath sounds clear to auscultation bilaterally and equal. No wheezes rales or rhonchi. HEART: Regular rate and rhythm without murmurs, rubs, gallops. Extremities: No cyanosis, clubbing, or edema b/l. Poonam negative bilaterally. No lower extremity asymmetry. NEUROLOGICAL: Normal speech, normal gait. PSYCH: Normal mood, normal affect. - Related Data Allergies/Adverse Reactions: No Known Allergies Allergy (Verified 02/12/19 13:57) Past Medical History Renal/ Medical History: Denies: Hx Peritoneal Dialysis Psychiatric Medical History: Reports: Hx Attention Deficit Hyperactivity Disorder, Hx Bipolar Disorder, Hx Depression - Immunizations Hx Diphtheria, Pertussis, Tetanus Vaccination: Yes Physical Exam - Vital signs Vitals: Temp Pulse Resp BP Pulse Ox 98.2 F 112 H 14 111/65 99 02/12/19 13:45 02/12/19 13:45 02/12/19 13:45 02/12/19 13:45 02/12/19 13:45 Course - Vital Signs Vital signs: Temp Pulse Resp BP Pulse Ox 98.2 F 112 H 14 111/65 99 02/12/19 13:45 02/12/19 13:45 02/12/19 13:45 02/12/19 13:45 02/12/19 13:45
[2019-02-12] MEDS ORDERED: FAMOTIDINE INJ/PF 20 MG/2 ML SDV IV ONE (14:24)
[2019-02-12 14:54] LABS: APPEARANCE,URINE CLEAR; BILIRUBIN,URINE NEGATIVE (NEGATIVE); COLOR,URINE YELLOW; GLUCOSE, URINE NEGATIVE (NEGATIVE); KETONES,URINE TRACE mg/dL (NEGATIVE); LEUKOCYTE ESTERASE,URINE NEGATIVE (NEGATIVE); NITRITE,URINE NEGATIVE (NEGATIVE); PROTEIN,URINE NEGATIVE (NEGATIVE); URINE SPECIFIC GRAVITY 1.012; UROBILINOGEN,URINE NEGATIVE mg/dL (<2.0)
--- NOTE | 2019-02-12 14:56 | RADIOLOGY REPORT (SQ) ---
EXAM DESCRIPTION: CHEST 2 VIEWS COMPLETED DATE/TIME: 02/12/2019 2:46 pm REASON FOR STUDY: CP COMPARISON: 08/28/2018. EXAM PARAMETERS: NUMBER OF VIEWS: two views TECHNIQUE: Digital Frontal and Lateral radiographic views of the chest acquired. RADIATION DOSE: NA LIMITATIONS: none FINDINGS: LUNGS AND PLEURA: No opacities, masses or pneumothorax. No pleural effusion. MEDIASTINUM AND HILAR STRUCTURES: No masses or contour abnormalities. HEART AND VASCULAR STRUCTURES: Heart normal size. No evidence for failure. BONES: No acute findings. HARDWARE: None in the chest. OTHER: No other significant finding. IMPRESSION: NO ACUTE RADIOGRAPHIC FINDING IN THE CHEST. TECHNICAL DOCUMENTATION: JOB ID: [id number] [employer])- All Rights Reserved Reading location - IP/workstation name: [email or web address]
[2019-02-12] MEDS: NORMAL SALINE 1000 ML 1,000 ML IV PRN ×2 (14:59→16:01)
[2019-02-12 15:16] LABS: HEMATOCRIT 41.2 % (37.9-51.0); HEMOGLOBIN 14.6 g/dL (13.5-17.0); MEAN CORPUSCULAR HEMOGLOBIN 33.8 pg (27.0-33.4); MEAN CORPUSCULAR HGB CONC 35.6 g/dL (32.0-36.0); MEAN CORPUSCULAR VOLUME 95 fl (80-97); PLATELET COUNT 220 10^3/uL (150-450); RED BLOOD COUNT 4.34 10^6/uL (4.35-5.55); WHITE BLOOD COUNT 7.2 10^3/uL (4.0-10.5)
[2019-02-12] MEDS ORDERED: PYRIDOXINE HCL INJ 100 MG/1 ML VIAL IM ONE (15:23)
[2019-02-12 15:34] LABS: ALBUMIN 4.5 g/dL (3.5-5.0); ALKALINE PHOSPHATASE 54 U/L (38-126); ANION GAP 12 (5-19); ASPARTATE AMINO TRANSFERASE 24 U/L (17-59); BILIRUBIN,TOTAL 0.5 mg/dL (0.2-1.3); BLOOD UREA NITROGEN 9 mg/dL (7-20); CALCIUM 9.3 mg/dL (8.4-10.2); CARBON DIOXIDE 26 mmol/L (22-30); CHLORIDE 98 mmol/L (98-107); GLUCOSE 91 mg/dL (75-110); POTASSIUM 3.5 mmol/L (3.6-5.0); TOTAL PROTEIN 7.6 g/dL (6.3-8.2)
[2019-02-12 15:41] LABS: ABSOLUTE LYMPHOCYTES# (MANUAL) 0.1 10^3/uL (0.5-4.7); ABSOLUTE MONOCYTES # (MANUAL) 0.3 10^3/uL (0.1-1.4); BASOPHILS % (MANUAL) 0 % (0-2); EOSINOPHILS % (MANUAL) 0 % (0-6); LYMPHOCYTES % (MANUAL) 2 % (13-45); MONOCYTES % (MANUAL) 4 % (3-13); SEGMENTED NEUTROPHILS % (MAN) 94 % (42-78); TOTAL CELLS COUNTED 100
[2019-02-12 15:42] LABS: PLATELET COMMENT ADEQUATE
--- NOTE | 2019-02-12 15:43 | ER Document Report ---
ED GI/ - General Chief Complaint: Nausea/Vomiting/Diarrhea Stated Complaint: VOMITING,CHEST TIGHTNESS,WEAKNESS Time Seen by Provider: 02/12/19 13:57 Primary Care Provider: [facility] [Provider Group] - Follow up in 1 week TRAVEL OUTSIDE OF THE [place] IN LAST 30 DAYS: No - HPI Notes: 02/12/19 15:38 28-year-old male to the emergency department with mother with complaints of nausea, vomiting, diarrhea that began this morning about 10:30 AM. He states that the vomiting has been the most significant symptom. He states that he is vomited at least 12 times. He denies any blood in his vomit. He states that he is had about 5 episodes of diarrhea. He has not seen any bright red blood in his diarrhea or blackness to it. He denies any recent change in his diet or eating out. He denies any recent sick contacts that he knows of. He denies any fevers, chills. He states that he does feel globally weak. He denies any syncope or chest pain, shortness of breath. - Related Data Allergies/Adverse Reactions: No Known Allergies Allergy (Verified 02/12/19 13:57) Past Medical History - General Information source: Patient - Social History Smoking Status: Never Smoker Chew tobacco use (# tins/day): No Frequency of alcohol use: Occasional Drug Abuse: None Lives with: Family Family History: Reviewed & Not Pertinent - ETOH abuse Patient has suicidal ideation: No Patient has homicidal ideation: No Renal/ Medical History: Denies: Hx Peritoneal Dialysis Psychiatric Medical History: Reports: Hx Attention Deficit Hyperactivity Disorder, Hx Bipolar Disorder, Hx Depression - Immunizations Hx Diphtheria, Pertussis, Tetanus Vaccination: Yes Review of Systems - Review of Systems Constitutional: denies: Chills, Diaphoresis, Fever EENT: No symptoms reported Cardiovascular: denies: Chest pain, Palpitations, Heart racing, Syncope, Diz ziness, Lightheaded, Edema Respiratory: denies: Cough, Short of breath, Wheezing Gastrointestinal: Abdominal pain, Diarrhea, Nausea, Vomiting Genitourinary: No symptoms reported Musculoskeletal: No symptoms reported Skin: No symptoms reported Hematologic/Lymphatic: No symptoms reported Neurological/Psychological: No symptoms reported -: Yes All other systems reviewed and negative Physical Exam - Vital signs Vitals: Temp Pulse Resp BP Pulse Ox 98.2 F 112 H 14 111/65 99 12/12/19 13:45 02/12/19 13:45 02/12/19 13:45 02/12/19 13:45 02/12/19 13:45 Interpretation: Normal - General General appearance: Alert Notes: Patient appears to feel unwell. He is not in any acute distress. States that he feels better after Pepcid. He did declined Zofran. He states that antiemetic medicines make him feel "weird". - HEENT Head: Normocephalic, Atraumatic Eyes: Normal Pupils: PERRL Ears: Normal External canal: Normal Tympanic membrane: Normal Sinus: Normal Nasal: Normal Mouth/Lips: Normal Mucous membranes: Normal Pharynx: Normal. No: Potential airway comprom. Neck: Normal, Supple. No: Lymphadenopathy, Meningismus - Respiratory Respiratory status: No respiratory distress Chest status: Nontender. No: Accessory muscle use Breath sounds: Normal. No: Rales, Rhonchi, Stridor, Wheezing Chest palpation: Normal - Cardiovascular Rhythm: Regular Heart sounds: Normal auscultation Murmur: No - Abdominal Inspection: Normal Distension: No distension Bowel sounds: Normal Tenderness: Tender - Mild tenderness to palpation to the epigastrium. Negative Doan sign, negative McBurney's point, no guarding or rebound. No peritoneal signs. Organomegaly: No organomegaly - Back Back: No: Tender, Deformity/step-off, CVA tenderness - Neurological Neuro grossly intact: Yes Cognition: Normal Orientation: AAOx4 Greenwood Coma Scale Eye Opening: Spontaneous Greenwood Coma Scale Verbal: Oriented Patrick Coma Scale Motor: Obeys Commands Patrick Coma Scale Total: 15 Speech: Normal Cranial nerves: Normal Cerebellar coordination: Normal Motor strength normal: LUE, RUE, LLE, RLE Additional motor exam normals: Equal rn registry Sensory: Normal - Psychological Associated symptoms: Normal affect, Normal mood - Skin Skin Temperature: Warm Skin Moisture: Dry Skin Color: Normal Course - Re-evaluation Re-evalutation: 02/12/19 Was called into the room because patient states that he was feeling weak and like his heart was racing. He has been able to tolerate ice chips and actually his vital signs have improved. He is no longer as tachycardic as when he first came in. He has had a decrease in his heart rate by about 10 points and is now about 106. Discussed with patient further and will give another half a liter of normal saline. Have continue to offer Phenergan and Zofran but patient has declined because "I do not like the way that the medicine makes me feel". Will attempt p.o. challenge with saltines. Patient tolerated p.o. saltines and states that he is feeling better. He states that he does still feel little bit weak and fatigued. He has not been vomiting since arrival. We discussed home plan and offered to give patient diclegis. as well as Pepcid for home use. He does not want to use Diclegis. Thus I have encouraged the patient to push fluids and to return if he gets worse at all. Also encouraged him to use Pepcid. Patient agrees with the plan. He was ambulated in the emergency department and did well. Will discharge home. Impression: Nausea, vomiting, diarrhea likely viral in nature. He has a nontender abdomen on exam. His lab work is reassuring. He has had improvement of his vital signs. Will discharge home. - Vital Signs Vital signs: Temp Pulse Resp BP Pulse Ox 97.9 F 82 16 99/64 L 99 02/12/19 18:32 02/12/19 18:32 02/12/19 18:32 02/12/19 18:32 02/12/19 18:32 - Laboratory Result Diagrams: 02/12/19 14:50 02/12/19 14:50 Laboratory results interpreted by me: 02/12/19 02/12/19 02/12/19 14:35 14:50 14:50 RBC 4.34 L MCH 33.8 H Seg Neuts % (Manual) 94 H Lymphocytes % (Manual) 2 L Abs Lymphs (Manual) 0.1 L Sodium 135.7 L Potassium 3.5 L Urine Ketones TRACE H Discharge - Discharge Clinical Impression: Nausea vomiting and diarrhea, Dehydration Condition: Stable Disposition: HOME, SELF-CARE Instructions: Dehydration ([facility]), Diarrhea, Nonspecific ([facility]), Vomiting ([facility]) Additional Instructions: PUSH FLUIDs. REST AT HOME. RETURN IF WORSE. FOLLOW UP WITH PRIMARY CARE. Prescriptions: Famotidine [Pepcid 20 mg Tablet] 20 mg PO BID #12 tablet Referrals: [facility] [Provider Group] - Follow up in 1 week
[2019-02-12] MEDS ORDERED: NORMAL SALINE 500 ML IV ONE (16:51)
--- NOTE | 2019-02-12 17:04 | EKG REPORT ---
SEVERITY:- BORDERLINE ECG - SINUS RHYTHM ATRIAL PREMATURE COMPLEX INFERIOR Q WAVES, PROBABLY NORMAL VARIATION : Confirmed by: Deepak Silva MD 12-Feb-2019 17:03:24
[2019-02-12 18:33] VITALS: BP 99/64
== END 2019-02-12 18:33 | disposition home or self-care (01) ==
LOC: ER 13:41
DX: R11.2 Nausea with vomiting, unspecified (principal); R19.7 Diarrhea, unspecified; E86.0 Dehydration; R53.1 Weakness; R10.9 Unspecified abdominal pain; R07.89 Other chest pain; R00.0 Tachycardia, unspecified; R53.83 Other fatigue
CPT/HCPCS: 93005; 36415; 83690; 85025; 80053; 81001; 84484; 71046; 93010; J3415; J7030; J7040; S0028; 96361; 96372; 96374; 99283

== ENCOUNTER → 2019-03-05 | Outpatient (CLI) | payer OTHER ==
--- NOTE | 2019-03-05 14:36 | RADIOLOGY REPORT (SQ) ---
EXAM DESCRIPTION: T SPINE AP/LAT COMPLETED DATE/TIME: 03/05/2019 1:36 pm REASON FOR STUDY: LOW BACK PAIN M54.5 LOW BACK PAIN COMPARISON: 04/13/2018 NUMBER OF VIEWS: Two views. TECHNIQUE: AP and lateral radiographic images acquired of the thoracic spine. LIMITATIONS: None. FINDINGS: MINERALIZATION: Normal. ALIGNMENT: Normal. No scoliosis. VERTEBRAE: No fracture or bone lesion. Maintained height, normal segmentation. DISCS: No significant loss of height or significant narrowing. No large osteophytes. HARDWARE: None in the spine. MEDIASTINUM AND SOFT TISSUES: Normal heart size and aortic contour. No soft tissue abnormality. VISUALIZED LUNG PADILLA: Clear. OTHER: No other significant finding. IMPRESSION: NO SIGNIFICANT RADIOGRAPHIC FINDING IN THE THORACIC SPINE. TECHNICAL DOCUMENTATION: JOB ID: [id number] [place]-[id number] 2010 [employer]- All Rights Reserved Reading location - IP/workstation name: [email or web address]
== END ==
LOC: CCC 13:10
DX: M54.5 Low back pain (principal)
CPT/HCPCS: 72070

== ENCOUNTER 2019-06-17 23:54 | Emergency (ER) | payer SELFPAY, OTHER ==
[2019-06-18] MEDS ORDERED: ONDANSETRON HCL INJ/PF 4 MG/2 ML SDV IV ONE (00:10)
[2019-06-18] MEDS ORDERED: NORMAL SALINE 1000 ML 1,000 ML IV ONE (00:10)
--- NOTE | 2019-06-18 00:14 | ER Document Report ---
ED General - General Chief Complaint: Cough Stated Complaint: DIFFICULTY BREATHING Time Seen by Provider: 06/17/19 23:58 Notes: Patient is a 28-year-old male that comes to the emergency department for chief complaint of vomiting multiple times a day (he states he vomited over 10 times), and he is also had a cough with occasional sputum production for the past 10 days. He denies chest pain or difficulty breathing. He states he traveled up [facility] 3 weeks ago. He denies fevers, body aches, sore throat. He has occasional loose stools. He denies hematemesis or hematochezia. He states he has pain in his upper abdomen. He admits to alcohol abuse, he states he drinks daily, however he denies withdrawal symptoms. He denies recreational drugs. He states he does not currently smoke cigarettes. He denies history of asthma, he denies any diagnosed medical history or daily medications. TRAVEL OUTSIDE OF THE [place] IN LAST 30 DAYS: No - Related Data Allergies/Adverse Reactions: No Known Allergies Allergy (Verified 02/12/19 13:57) Past Medical History - General Information source: Patient - Social History Smoking Status: Former Smoker Frequency of alcohol use: Heavy Lives with: Alone Family History: Reviewed & Not Pertinent - ETOH abuse Patient has suicidal ideation: No Patient has homicidal ideation: No Renal/ Medical History: Denies: Hx Peritoneal Dialysis Psychiatric Medical History: Reports: Hx Attention Deficit Hyperactivity Disorder, Hx Bipolar Disorder, Hx Depression Surgical Hx: Negative - Immunizations Hx Diphtheria, Pertussis, Tetanus Vaccination: Yes Review of Systems - Review of Systems Constitutional: See HPI EENT: No symptoms reported Cardiovascular: No symptoms reported Respiratory: See HPI Gastrointestinal: See HPI Genitourinary: No symptoms reported Male Genitourinary: No symptoms reported Musculoskeletal: No symptoms reported Skin: No symptoms reported Hematologic/Lymphatic: No symptoms reported Neurological/Psychological: No symptoms reported Physical Exam - Vital signs Vitals: Temp Pulse Resp BP Pulse Ox 98.0 F 78 18 103/81 99 06/18/19 00:35 06/18/19 00:35 06/18/19 00:35 06/18/19 00:35 06/18/19 00:35 - Notes Notes: GENERAL: Patient is alert and responsive but he is pale, disheveled, and appears to have just vomited. HEAD: Normocephalic, atraumatic. EYES: Pupils equal, round, and reactive to light. Extraocular movements intact. ENT: Oral mucosa dry, tongue midline. Oropharynx unremarkable. Airway patent. NECK: Full range of motion. Supple. Trachea midline. No lymphadenopathy. LUNGS: Clear to auscultation bilaterally, no wheezes, rales, or rhonchi. No respiratory distress. Non-tender chest wall. HEART: Borderline tachycardia, normal rhythm, no murmur ABDOMEN: Mild epigastric tenderness, lower abdomen is completely benign. No guarding or rigidity. GENITOURINARY: Deferred EXTREMITIES: Moves all 4 extremities spontaneously. No edema, normal radial and dorsalis pedis pulses bilaterally. No cyanosis. BACK: no cervical, thoracic, lumbar midline tenderness. No saddle anesthesia, normal distal neurovascular exam. Moves all extremities in full range of motion. NEUROLOGICAL: Alert and oriented x3. Normal speech. Cranial nerves II through XII grossly intact. Strength 5/5 in all extremities. PSYCH: Slightly irritable, short answers, poor eye contact SKIN: pale, no rash Course - Re-evaluation Re-evalutation: Patient had initially vomited, he does have some mild upper abdominal tenderness, he is borderline tachycardic. Otherwise his evaluation is reassuring, he is alert, does not appear to be significantly intoxicated, he is cooperative. Patient given IV fluids, nausea medications, after this he significantly improved, he was given oral medications, oral fluids, he tolerated this without any difficulty. CBC unremarkable, chemistry unremarkable except for mild LFT elevation which is expected, Lipase unremarkable. Alcohol is mildly elevated. On reevaluation his abdomen is nontender. Because of patient's persistent coughing symptoms chest x-ray was performed but negative, influenza negative, coronavirus test is pending. He has not had any fevers. He has no complaints on reevaluation states he feels much better. I discussed alcohol cessation, suspected gastritis component, coronavirus instructions and follow-up, return precautions. Patient states appreciation and agreement. Stable and well-appearing at time of dis charge. - Vital Signs Vital signs: Temp Pulse Resp BP Pulse Ox 98.2 F 78 16 98/55 L 100 06/18/19 02:36 06/18/19 02:36 06/18/19 02:36 06/18/19 02:36 06/18/19 02:36 - Laboratory Result Diagrams: 06/18/19 00:34 06/18/19 00:34 Laboratory results interpreted by me: 06/18/19 06/18/19 00:34 00:34 RBC 3.67 L Hgb 12.8 L Hct 35.5 L MCH 34.8 H Lymph % (Auto) 10.4 L Seg Neutrophils % 83.2 H Sodium 133.8 L Creatinine 0.51 L Calcium 8.3 L Discharge - Discharge Clinical Impression: Cough, Alcohol abuse Nausea & vomiting Qualifiers: Vomiting type: unspecified Vomiting Intractability: non-intractable Qualified Code(s): R11.2 - Nausea with vomiting, unspecified Condition: Stable Disposition: HOME, SELF-CARE Additional Instructions: Your symptoms and examination indicate gastritis/esophagitis (inflammation of your upper gastrointestinal tract). Take Phenergan for nausea, take Carafate and Pepcid as prescribed to help treat this, you can take additional Rolaids, Tums, Maalox, etc. if needed. Avoid NSAIDs, alcohol, smoking, caffeine, spicy food. Start with clear fluids, progress to bland diet. I recommend that you follow-up with the detox center listed below. Your chest x-ray was negative. You have also been tested for the coronavirus because of your ongoing cough. You will be contacted with the results. Please follow the quarantine instructions listed below until that time, and then proceed as instructed when you are called. Return if you worsen including uncontrolled vomiting, vomiting blood, black stools, severe pain, fever of 100.4 or greater, or any other concerning or worsening symptoms. [facility] [address] [place] [id number] Hours: Open 24 hours As a person under investigation for COVID-19, the [place] Department of Health and Human Services (divison on public health) advises you to adhere to the following guidance until your test results are reported to you. If your test result is positive, you will receive additional information from your provider and your local health department at that time. Remain at home until you are cleared by the health provider or public health authorities. Keep a log of visitors to your home, notify any visitors to your home of your isolation status. If you plan to move to a new address or leave the county, notify the local health department in your County. Call your Doctor or seek care if you have an urgent medical need. Before seeking medical care, call him to get instructions from the provider before arriving at the medical office, clinic, or hospital. Notify them that you are being tested for the virus (COVID-19) so that arrangements can be made, as necessary, to prevent transmission to others in the healthcare setting. Next, notify the local health department in your county. If a medical emergency arises and you need to call 911, inform the first responders that you are being tested for the virus that causes COVID-19. Next, notify the local health department in your county. Prescriptions: Sucralfate [Carafate 1 gm Tablet] 1 gm PO QID #20 tablet Famotidine [Pepcid 20 mg Tablet] 20 mg PO BID #20 tablet Promethazine HCl [Phenergan 25 mg Tablet] 25 mg PO Q6H PRN #15 tablet PRN Reason:
[2019-06-18 00:54] LABS: ABSOLUTE LYMPHOCYTES (AUTO) 0.6 10^3/uL (0.5-4.7); BASOPHILS % (AUTO) 0.6 % (0-2); RED CELL DISTRIBUTION WIDTH 12.3 % (11.5-14.0); TOTAL CELLS COUNTED % (AUTO) 100 %
[2019-06-18 00:57] LABS: ABSOLUTE MONOCYTES (AUTO) 0.3 10^3/uL (0.1-1.4); ABSOLUTE NEUT (AUTO) 4.8 10^3/uL (1.7-8.2); EOSINOPHILS % (AUTO) 0.1 % (0-6); HEMATOCRIT 35.5 % (37.9-51.0); HEMOGLOBIN 12.8 g/dL (13.5-17.0); LYMPHOCYTES % (AUTO) 10.4 % (13-45); MEAN CORPUSCULAR HEMOGLOBIN 34.8 pg (27.0-33.4); MEAN CORPUSCULAR HGB CONC 35.9 g/dL (32.0-36.0); MEAN CORPUSCULAR VOLUME 97 fl (80-97); MONOCYTES % (AUTO) 5.7 % (3-13); PLATELET COUNT 248 10^3/uL (150-450); RED BLOOD COUNT 3.67 10^6/uL (4.35-5.55); SEGMENTED NEUTROPHILS % (AUTO) 83.2 % (42-78); WHITE BLOOD COUNT 5.8 10^3/uL (4.0-10.5)
[2019-06-18 01:20] LABS: ALBUMIN 4.1 g/dL (3.5-5.0); ALCOHOL 137 mg/dL (NONE DETECTED); ALKALINE PHOSPHATASE 80 U/L (38-126); ANION GAP 8 (5-19); ASPARTATE AMINO TRANSFERASE 25 U/L (17-59); BILIRUBIN,TOTAL 0.4 mg/dL (0.2-1.3); BLOOD UREA NITROGEN 9 mg/dL (7-20); CALCIUM 8.3 mg/dL (8.4-10.2); CARBON DIOXIDE 26 mmol/L (22-30); CHLORIDE 100 mmol/L (98-107); GLUCOSE 101 mg/dL (75-110); POTASSIUM 3.8 mmol/L (3.6-5.0); TOTAL PROTEIN 6.9 g/dL (6.3-8.2)
[2019-06-18] MEDS ORDERED: PROMETHAZINE HCL 25 MG TABLET PO ONE (01:30)
[2019-06-18] MEDS ORDERED: SUCRALFATE 1 GM TABLET PO ONE (01:30)
--- NOTE | 2019-06-18 01:33 | RADIOLOGY REPORT (SQ) ---
EXAM DESCRIPTION: XR CHEST 1 VIEW COMPLETED DATE/TME: 06/18/2019 00:09 CLINICAL HISTORY: 28 years, Male, cough x 10 days COMPARISON: 02/12/2019 chest NUMBER OF VIEWS: 1 TECHNIQUE: Portable chest LIMITATIONS: None. FINDINGS: The heart size is normal. The lungs are clear. No pneumothorax IMPRESSION: Negative chest copyright 2010 [employer]- All Rights Reserved
[2019-06-18 02:10] LABS: A TYPE INFLUENZA AG NEGATIVE (NEGATIVE); B INFLUENZA AG NEGATIVE (NEGATIVE)
[2019-06-18] MEDS ORDERED: ONDANSETRON ODT 4 MG TAB (6 TAB/ER DISP) PO PRN (02:20)
[2019-06-18 02:37] VITALS: BP 98/55
== END 2019-06-18 02:58 | disposition home or self-care (01) ==
LOC: ER 23:54
DX: R05 Cough (principal); F10.10 Alcohol abuse, uncomplicated; R11.2 Nausea with vomiting, unspecified; R06.00 Dyspnea, unspecified; R10.10 Upper abdominal pain, unspecified; Z20.828 Contact with and (suspected) exposure to other viral communicable diseases
CPT/HCPCS: 99283; 96361; 96374; 36415; 80307; 83690; 85025; 87635; 80053; 87804; 71045; J2405; J7030

== ENCOUNTER 2019-08-09 02:30 | Emergency (ER) | payer OTHER, SELFPAY ==
[2019-08-09] MEDS ORDERED: ONDANSETRON HCL INJ/PF 4 MG/2 ML SDV IV ONE (03:10)
[2019-08-09] MEDS ORDERED: NORMAL SALINE 1000 ML 1,000 ML IV ONE (03:10)
[2019-08-09 03:21] LABS: HEMATOCRIT 41.5 % (37.9-51.0); HEMOGLOBIN 14.4 g/dL (13.5-17.0); MEAN CORPUSCULAR HEMOGLOBIN 32.9 pg (27.0-33.4); MEAN CORPUSCULAR HGB CONC 34.7 g/dL (32.0-36.0); MEAN CORPUSCULAR VOLUME 95 fl (80-97); PLATELET COUNT 233 10^3/uL (150-450); RED BLOOD COUNT 4.38 10^6/uL (4.35-5.55); RED CELL DISTRIBUTION WIDTH 11.9 % (11.5-14.0); WHITE BLOOD COUNT 3.7 10^3/uL (4.0-10.5)
[2019-08-09 03:38] LABS: ABSOLUTE LYMPHOCYTES# (MANUAL) 1.1 10^3/uL (0.5-4.7); ABSOLUTE MONOCYTES # (MANUAL) 0.4 10^3/uL (0.1-1.4); ALBUMIN 4.6 g/dL (3.5-5.0); ALKALINE PHOSPHATASE 60 U/L (38-126); ANION GAP 9 (5-19); ASPARTATE AMINO TRANSFERASE 24 U/L (17-59); BAND NEUTROPHILS % (MANUAL) 2 % (3-5); BASOPHILS % (MANUAL) 2 % (0-2); BILIRUBIN,TOTAL 0.3 mg/dL (0.2-1.3); BLOOD UREA NITROGEN 7 mg/dL (7-20); CALCIUM 8.9 mg/dL (8.4-10.2); CARBON DIOXIDE 28 mmol/L (22-30); CHLORIDE 100 mmol/L (98-107); EOSINOPHILS % (MANUAL) 2 % (0-6); GLUCOSE 98 mg/dL (75-110); LYMPHOCYTES % (MANUAL) 31 % (13-45); MONOCYTES % (MANUAL) 11 % (3-13); SEGMENTED NEUTROPHILS % (MAN) 52 % (42-78); TOTAL CELLS COUNTED 100; TOTAL PROTEIN 7.7 g/dL (6.3-8.2)
[2019-08-09 03:39] LABS: ALCOHOL < 10 mg/dL (NONE DETECTED); PLATELET COMMENT ADEQUATE; RBC MORPHOLOGY COMMENT NORMO-CYTIC/CHROMIC
--- NOTE | 2019-08-09 04:28 | ER Document Report ---
ED Substance Abuse / Acc. OD - General Chief Complaint: ETOH Abuse Stated Complaint: ETOH Time Seen by Provider: 08/09/19 04:07 Primary Care Provider: [facility] [Primary Care Provider] - Follow up as needed Notes: Patient is a 29-year-old male that comes emergency department for chief complaint of wanting detox from alcohol dependence. Patient states that he drinks daily, he has had withdrawal symptoms in the past mainly shaking, vomiting, visual changes. He denies seizures. His last drink was at 11 AM. He denies recreational drug use of marijuana, he does smoke. He states he is diagnosed with bipolar but is not on any medications for this. He denies suicidal ideations or homicidal ideations. He denies fevers, chills, abdominal pain, or any other complaints at this time. TRAVEL OUTSIDE OF THE [place] IN LAST 30 DAYS: No - Related Data Allergies/Adverse Reactions: No Known Allergies Allergy (Verified 02/12/19 13:57) Past Medical History - General Information source: Patient - Social History Smoking Status: Current Some Day Smoker Chew tobacco use (# tins/day): No Frequency of alcohol use: Heavy Drug Abuse: None Lives with: Family Family History: Reviewed & Not Pertinent - ETOH abuse Patient has homicidal ideation: No Renal/ Medical History: Denies: Hx Peritoneal Dialysis Psychiatric Medical History: Reports: Hx Attention Deficit Hyperactivity Disorder, Hx Bipolar Disorder, Hx Depression Surgical Hx: Negative - Immunizations Hx Diphtheria, Pertussis, Tetanus Vaccination: Yes Review of Systems - Review of Systems Constitutional: See HPI EENT: No symptoms reported Cardiovascular: No symptoms reported Respiratory: No symptoms reported Gastrointestinal: No symptoms reported Genitourinary: No symptoms reported Male Genitourinary: No symptoms reported Musculoskeletal: No symptoms reported Skin: No symptoms reported Hematologic/Lymphatic: No symptoms reported Neurological/Psychological: See HPI Physical Exam - Vital signs Vitals: Temp Pulse Resp BP Pulse Ox 98.1 F 86 18 120/79 96 08/09/19 02:43 08/09/19 02:43 08/09/19 02:43 08/09/19 02:43 08/09/19 02:43 - Notes Notes: GENERAL: Patient is thin and slightly frail-appearing but he does not appear to be in any distress HEAD: Normocephalic, atraumatic. EYES: Pupils equal, round, and reactive to light. Extraocular movements intact. ENT: Oral mucosa moist, tongue midline. Oropharynx unremarkable. Airway patent. NECK: Full range of motion. Supple. Trachea midline. No lymphadenopathy. LUNGS: Clear to auscultation bilaterally, no wheezes, rales, or rhonchi. No respiratory distress. Non-tender chest wall. HEART: Regular rate and rhythm. No murmur ABDOMEN: Soft, non-tender. Non-distended. Bowel sounds present in all 4 quadrants. GENITOURINARY: Deferred EXTREMITIES: Moves all 4 extremities spontaneously. No edema, normal radial and dorsalis pedis pulses bilaterally. No cyanosis. BACK: no cervical, thoracic, lumbar midline tenderness. No saddle anesthesia, normal distal neurovascular exam. Moves all extremities in full range of motion. NEUROLOGICAL: Alert and oriented x3. Normal speech. Cranial nerves II through XII grossly intact. Strength 5/5 in all extremities. PSYCH: Normal affect, normal mood. SKIN: Warm, dry, normal turgor. No rashes or lesions noted. Course - Re-evaluation Re-evalutation: Patient alert, well-appearing, has an unremarkable physical exam, no current complaints. Patient's only request is to be placed in detox. He is not suic idal, not homicidal, he is not acting psychotic and is very appropriate and reasonable. Patient has negative alcohol, last drink was 11 AM. Remaining work-up from triage reviewed and unremarkable. We will contact [facility] to see if patient can be placed in detox. Patient states appreciation and agreement. Crisis center has been contacted and they accept patient, patient will be sent over there now. Patient discharged to detox. - Vital Signs Vital signs: Temp Pulse Resp BP Pulse Ox 98.1 F 66 15 110/58 L 97 08/09/19 04:56 08/09/19 04:56 08/09/19 04:56 08/09/19 04:56 08/09/19 04:56 - Laboratory Result Diagrams: 08/09/19 03:06 08/09/19 03:06 Laboratory results interpreted by me: 08/09/19 08/09/19 03:06 03:06 WBC 3.7 L Band Neutrophils % 2 L Sodium 136.8 L Discharge - Discharge Clinical Impression: Alcohol dependence Qualifiers: Substance use status: unspecified alcohol-induced disorder Qualified Code(s): F10.29 - Alcohol dependence with unspecified alcohol-induced disorder Condition: Stable Disposition: REHAB FACILITY Additional Instructions: Please proceed directly to [facility] for alcohol rehab. Return to the emergency department for any concerning symptoms or something is not right. [facility]errals: [facility] [Primary Care Provider] - Follow up as needed
[2019-08-09 04:58] VITALS: BP 110/58
== END 2019-08-09 04:58 ==
LOC: ER 02:30
DX: F10.29 Alcohol dependence with unspecified alcohol-induced disorder (principal); F17.200 Nicotine dependence, unspecified, uncomplicated
CPT/HCPCS: 99284; 96361; 96374; 36415; 80307; 85025; 80053; J2405; J7030

== ENCOUNTER 2019-11-21 20:05 | Emergency (ER) | payer SELFPAY ==
--- NOTE | 2019-11-21 20:26 | ER Document Report ---
ED Medical Screen (RME) - General Chief Complaint: Nausea Stated Complaint: NAUSEA,SORE THROAT,VOMITING Time Seen by Provider: 11/21/19 20:20 [facility] - Follow up as needed Mode of Arrival: Ambulatory Information source: Patient Notes: HPI; 29-year-old male presents to the emergency room complaining of general body aches, sore throat, cough and headache for the past 3 days. Denies any fevers. Taking ibuprofen without relief. Denies any recent travel. Denies any COVID-19 exposure. States had a negative cover test 2 months ago. 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 And would like to be tested. PE: Alert and oriented x3. Mild distress noted. Lungs: Clear to auscultation without rales, rhonchi, wheezes. Heart: Regular rate rhythm without murmurs, rubs Or gallops. Patient was evaluated during the global COVID-19 pandemic and that diagnosis was suspected/considered upon their initial presentation. Their evaluation, treatment and testing was consistent with current guidelines for patients who presents with complaints or systems that may be related to COVID-19. I have greeted and performed a rapid initial assessment of this patient. A comprehensive ED assessment and evaluation of the patient, analysis of test results and completion of the medical decision making process will be conducted by additional ED providers. I have specifically instructed the patient or family members with the patient to immediately return to any nursing staff should anything change in the patient's condition or with their chief complaint. TRAVEL OUTSIDE OF THE [place] IN LAST 30 DAYS: No - Related Data Allergies/Adverse Reactions: No Known Allergies Allergy (Verified 02/12/19 13:57) Past Medical History Renal/ Medical History: Denies: Hx Peritoneal Dialysis Psychiatric Medical History: Reports: Hx Attention Deficit Hyperactivity Disorder, Hx Bipolar Disorder, Hx Depression - Immunizations Hx Diphtheria, Pertussis, Tetanus Vaccination: Yes Doctor's Discharge - Discharge Referrals: [facility] [Primary Care Provider] - Follow up as needed
[2019-11-21 22:54] VITALS: BP 138/85
--- NOTE | 2019-11-21 22:56 | ER Document Report ---
ED General - General Chief Complaint: Nausea Stated Complaint: NAUSEA,SORE THROAT,VOMITING Time Seen by Provider: 11/21/19 20:20 Primary Care Provider: [facility] [Primary Care Provider] - Follow up as needed Mode of Arrival: Ambulatory Notes: Patient is a 29-year-old male that comes emergency department for chief complaint of a sore throat. He states that he had sick symptoms starting 3 days ago, he states for the first 2 days he was vomiting, however this resolved, he states since last night he has felt better and he has been able to eat/drink without vomiting. However over the past day he has developed a very sore throat, currently his sore throat is his only complaint. He denies any other complaints to me including cough, chest pain, shortness of breath, headache, abdominal pain. He denies fever. He states he works in [employer]. He denies any daily medications or diagnosed past medical history. He smokes marijuana occasionally, denies recreational drugs otherwise, denies smoking or alcohol. TRAVEL OUTSIDE OF THE [place] IN LAST 30 DAYS: No - Related Data Allergies/Adverse Reactions: No Known Allergies Allergy (Verified 02/12/19 13:57) Past Medical History - General Information source: Patient - Social History Smoking Status: Never Smoker Frequency of alcohol use: Occasional Drug Abuse: Marijuana Lives with: Alone Family History: Reviewed & Not Pertinent - ETOH abuse Renal/ Medical History: Denies: Hx Peritoneal Dialysis Psychiatric Medical History: Reports: Hx Attention Deficit Hyperactivity Disorder, Hx Bipolar Disorder, Hx Depression - Immunizations Hx Diphtheria, Pertussis, Tetanus Vaccination: Yes Review of Systems - Review of Systems Constitutional: See HPI EENT: See HPI Cardiovascular: No symptoms reported Respiratory: No symptoms reported Gastrointestinal: See HPI Genitourinary: No symptoms reported Male Genitourinary: No symptoms reported Musculoskeletal: No symptoms reported Skin: No symptoms reported Hematologic/Lymphatic: No symptoms reported Neurological/Psychological: No symptoms reported Physical Exam - Vital signs Vitals: Temp 98.4 F 11/21/19 22:39 - Notes Notes: GENERAL: Alert, interacts well. No acute distress. HEAD: Normocephalic, atraumatic. EYES: Pupils equal, round, and reactive to light. Extraocular movements intact. ENT: Oral mucosa moist, tongue midline. Exudative pharyngitis bilaterally, normal uvula, no evidence of peritonsillar abscess. Airway patent. Nares patent, sinuses non-tender, ear canals unremarkable, TM's intact. NECK: Full range of motion. Supple. Trachea midline. Mild bilateral anterior cervical adenopathy, normal submandibular area. LUNGS: Clear to auscultation bilaterally, no wheezes, rales, or rhonchi. No respiratory distress. Non-tender chest wall. HEART: Regular rate and rhythm. No murmur ABDOMEN: Soft, non-tender. Non-distended. EXTREMITIES: Moves all 4 extremities spontaneously. No edema, normal radial and dorsalis pedis pulses bilaterally. No cyanosis. BACK: no cervical, thoracic, lumbar midline tenderness. No saddle anesthesia, normal distal neurovascular exam. Moves all extremities in full range of motion. NEUROLOGICAL: Alert and oriented x3. Normal speech. Cranial nerves II through XII grossly intact. Strength 5/5 in all extremities. PSYCH: Normal affect, normal mood. SKIN: Warm, dry, normal turgor. No rashes or lesions noted. Course - Re-evaluation Re-evalutation: I did review labs from triage. Strep negative, influenza negative, COVID-19 test pending. Patient is a soft benign abdomen, clear lungs, he does have exudative pharyngitis but no evidence of airway compromise or abscess. He is tolerating p.o. without difficulty. Discussed options with patient. Given dexamethasone for symptomatic treatment, culture for the throat and the COVID-19 tests are still pending, provided with work release, discussed return precautions. Patient states understanding and agreement. Stable and well- appearing at time of discharge. - Vital Signs Vital signs: Temp Pulse Resp BP Pulse Ox 98.4 F 72 16 138/85 H 98 11/21/19 22:47 11/21/19 22:47 11/21/19 22:47 11/21/19 22:47 11/21/19 22:47 Discharge - Discharge Clinical Impression: Exudative pharyngitis Condition: Stable Disposition: HOME, SELF-CARE Additional Instructions: Your influenza test is negative, your strep test is negative, but your exam does indicate a throat infection as we discussed. This could be viral, especially with your recent vomiting. You have been tested for COVID-19, please quarantine as you await your results. Take the Phenergan if needed for nausea, you have been treated with dexamethasone for your symptoms, take 1000 mg of Tylenol and 600 mg of ibuprofen every 6 hours together if needed for pain. Drink plenty of fluids and rest. You will be contacted with any concerning results from your throat culture. Return if you worsen including difficulty breathing or swallowing, spiking fev ers, or any other concerning or worsening symptoms. As a person under investigation for COVID-19, the [facility] of Health and Human Services (division on public health) advises you to adhere to the following guidance until your test results are reported to you. If your test result is positive, you will receive additional information from your provider and your local health department at that time. Remain at home until you are cleared by the health provider or public health authorities. Keep a log of visitors to your home, notify any visitors to your home of your isolation status. If you plan to move to a new address or leave the [facility], notify the local health department in your County. Call your Doctor or seek care if you have an urgent medical need. Before seeking medical care, call him to get instructions from the provider before arriving at the medical office, clinic, or hospital. Notify them that you are being tested for the virus (COVID-19) so that arrangements can be made, as necessary, to prevent transmission to others in the healthcare setting. Next, notify the local health department in your county. If a medical emergency arises and you need to call 911, inform the first responders that you are being tested for the virus that causes COVID-19. Next, notify the local health department in your [facility]. Prescriptions: Promethazine HCl [Phenergan 25 mg Tablet] 25 mg PO Q6H PRN #15 tablet PRN Reason: Forms: Return to Work Referrals: [facility] [Primary Care Provider] - Follow up as needed
[2019-11-21 23:13] LABS: A TYPE INFLUENZA AG NEGATIVE (NEGATIVE); B INFLUENZA AG NEGATIVE (NEGATIVE)
[2019-11-21] MEDS ORDERED: DEXAMETHASONE SOD PHOS INJ 10 MG/1 ML VIAL IM ONE (23:20)
[2019-11-21] MEDS ORDERED: ONDANSETRON ODT 4 MG TAB (6 TAB/ER DISP) PO PRN (23:21)
== END 2019-11-22 00:12 | disposition home or self-care (01) ==
LOC: ER 20:05
DX: J02.9 Acute pharyngitis, unspecified (principal); Z20.828 Contact with and (suspected) exposure to other viral communicable diseases
CPT/HCPCS: 99284; 96372; 87070; 87880; 87635; 87804; J1100; C9803

== ENCOUNTER 2020-01-08 20:11 | Emergency (ER) | payer SELFPAY ==
[2020-01-08] MEDS ORDERED: LORAZEPAM 1 MG TABLET PO ONE (20:37)
[2020-01-08 20:38] VITALS: BP 111/72
--- NOTE | 2020-01-08 20:42 | ER Document Report ---
ED General - General Chief Complaint: Anxiety Stated Complaint: POSSIBLE ANXIETY ATTACK Time Seen by Provider: 01/08/20 20:36 Primary Care Provider: [facility] [Primary Care Provider] - Follow up as needed Mode of Arrival: Ambulatory Information source: Patient Notes: Patient is a 29-year-old male coming in today for panic attack. He says his panic attacks are getting longer. He reports rapid heart rate flushing of his face, and tachycardia. He has been told multiple times that he has panic disorder. Unfortunately he also has a history of illicit drug use. States that Ativan normally helps when he has a bad panic attack but doctors will not prescribe it because of his history of drug abuse. He does not have any suicidal homicidal ideation. He takes Celexa for depression and reports a history of bipolar as well. TRAVEL OUTSIDE OF THE [place] IN LAST 30 DAYS: No - Related Data Allergies/Adverse Reactions: No Known Allergies Allergy (Verified 02/12/19 13:57) Past Medical History - Social History Smoking Status: Current Some Day Smoker Family History: Reviewed & Not Pertinent - ETOH abuse Renal/ Medical History: Denies: Hx Peritoneal Dialysis Psychiatric Medical History: Reports: Hx Attention Deficit Hyperactivity Disorder, Hx Bipolar Disorder, Hx Depression - Immunizations Hx Diphtheria, Pertussis, Tetanus Vaccination: Yes Review of Systems - Review of Systems Notes: Constitutional: No fevers. No chills. EENT: No eye redness. No eye pain. No ear pain. No sore throat. Cardiovascular: No chest pain. Positive for rapid heart rate Respiratory: No cough. No shortness of breath. No respiratory distress. Gastrointestinal: No abdominal pain. No nausea, vomiting, or diarrhea. Genitourinary: Atraumatic. No lesions. No pain. No discharge. Musculoskeletal: Atraumatic. No swelling. No deformities. Skin: No rash or lesions. Positive for flushing Lymphatic: No swollen lymph nodes. Neurologic: No headache. No syncope. Psychiatric: No anxiety Physical Exam - Vital signs Vitals: Temp Pulse Resp BP Pulse Ox 98.2 F 111 H 16 100/67 100 01/08/20 20:16 01/08/20 20:16 01/08/20 20:16 01/08/20 20:16 01/08/20 20:16 - Notes Notes: General: Well-developed, well-nourished. In no acute distress. Non-toxic appearing. Cardiac: Well-perfused. Regular rate and rhythm. No murmurs, rubs, or gallops. Pulmonary: No respiratory distress. No cyanosis. Bilateral lung fiels are clear to auscultation. Abdominal: Non-distended. Non-rigid. Bowels sounds are present in all four quadrants. No guarding or rebound. HEENT: Head is atraumatic. Conjunctivae not reddened. No tearing. PERRL. EOMI. Orbits atraumatic. No periorbital swelling or erythema. Oropharynx is without erythema, swelling, or exudates. Neck: Supple. No adenopathy. No meningismus. Dermatologic: Warm with good turgor. No rash. Atraumatic. Chest: Atraumatic. No chest wall tenderness to palpation. Musculoskeletal: Moves all extremities well. No range of motion deficits. no muscular or joint tenderness. No paraspinal muscle tenderness. no midline spinal tenderness or step-off. Genitourinary: Examination deferred Neurologic: No gross neurologic deficits. Psychiatric: Normal mood. No suicidal or homicidal ideation Course - Re-evaluation Re-evalutation: 01/08/20 20:39 Patient having what sounds like a typical panic attack where he gets numbness in his hands and gets a rapid heartbeat and gets flushed in his face. By the time he is seen here, he is not having any tachycardia and is able to speak very clearly and normal sentences. He is not short of breath. He denies any suicidal thoughts or homicidal thoughts. He is asking for a dose of Ativan to help with this panic attack. I told him that I would give him 1 dose here but that he would need to get it filled for a prescription elsewhere. - Vital Signs Vital signs: Temp Pulse Resp BP Pulse Ox 98.2 F 111 H 16 100/67 100 01/08/20 20:16 01/08/20 20:16 01/08/20 20:16 01/08/20 20:16 01/08/20 20:16 Discharge - Discharge Clinical Impression: Panic attack Condition: Good Disposition: HOME, SELF-CARE Instructions: Panic Attack ([facility]) Additional Instructions: If you feel that you are not appropriately managed in terms of your medications, please call and set up an appointment with your behavioral health specialist. You are always welcome to return to the emergency department if you are feeling suicidal or homicidal. Referrals: [facility] [Primary Care Provider] - Follow up as needed
== END 2020-01-08 20:49 | disposition home or self-care (01) ==
LOC: ER 20:11
DX: F41.0 Panic disorder [episodic paroxysmal anxiety] (principal); F32.9 Major depressive disorder, single episode, unspecified; F17.200 Nicotine dependence, unspecified, uncomplicated
CPT/HCPCS: 99283

== ENCOUNTER 2020-02-17 20:27 | Emergency (ER) | payer SELFPAY ==
[2020-02-17] MEDS ORDERED: NORMAL SALINE 1000 ML 1,000 ML IV ONE (21:02)
[2020-02-17] MEDS ORDERED: ONDANSETRON HCL INJ/PF 4 MG/2 ML SDV IV ONE (21:02)
[2020-02-17] MEDS ORDERED: MORPHINE SULFATE 10 MG/ML INJ IV ONE (21:02)
--- NOTE | 2020-02-17 21:04 | ER Document Report ---
ED Medical Screen (RME) - General Chief Complaint: Bloody Stools Stated Complaint: BLOOD IN STOOL, SEVERE ABDOMINAL PAIN Time Seen by Provider: 02/17/20 21:00 Primary Care Provider: SHADI CHEEK [Primary Care Provider] - Follow up as needed Notes: HPI: 29-year-old male presenting with lower umbilical abdominal pain with multiple episodes of blood and bloody diarrhea today. Symptoms started 7 hours ago. Woke up this morning feeling fine. No fever. No vomiting. States he had something similar when he had a peptic ulcer in the past. Patient states he does not drink alcohol any further. PHYSICAL EXAMINATION: Patient appears moderately uncomfortable. There is tenderness across the lower abdomen suprapubic region on palpation limited exam in triage by positioning. I have greeted and performed a rapid initial assessment of this patient. A comprehensive ED assessment and evaluation of the patient, analysis of test results and completion of medical decision making process will be conducted by an additional ED providers. Please note that clinical decision making for this patient was made during the 2019 pandemic of novel coronavirus which caused a significant strain on the healthcare system including at this particular facility. Criteria for admission discharge and level of care decisions as well as treatment decisions have necessarily changed TRAVEL OUTSIDE OF THE [place] IN LAST 30 DAYS: No - Related Data Allergies/Adverse Reactions: No Known Allergies Allergy (Verified 02/12/19 13:57) Past Medical History Renal/ Medical History: Denies: Hx Peritoneal Dialysis Psychiatric Medical History: Reports: Hx Attention Deficit Hyperactivity Disor velma, Hx Bipolar Disorder, Hx Depression - Immunizations Hx Diphtheria, Pertussis, Tetanus Vaccination: Yes Doctor's Discharge - Discharge Referrals: SHADI CHEEK [Primary Care Provider] - Follow up as needed
[2020-02-17 22:00] LABS: ABSOLUTE EOSINOPHILS # (AUTO) 0.1 10^3/uL (0.0-0.6); ABSOLUTE LYMPHOCYTES (AUTO) 1.1 10^3/uL (0.5-4.7); ABSOLUTE MONOCYTES (AUTO) 0.8 10^3/uL (0.1-1.4); ABSOLUTE NEUT (AUTO) 5.2 10^3/uL (1.7-8.2); BASOPHILS % (AUTO) 0.4 % (0-2); EOSINOPHILS % (AUTO) 1.4 % (0-6); HEMATOCRIT 44.5 % (37.9-51.0); HEMOGLOBIN 15.6 g/dL (13.5-17.0); LYMPHOCYTES % (AUTO) 15.2 % (13-45); MEAN CORPUSCULAR HEMOGLOBIN 33.5 pg (27.0-33.4); MEAN CORPUSCULAR HGB CONC 35.1 g/dL (32.0-36.0); MEAN CORPUSCULAR VOLUME 95 fl (80-97); MONOCYTES % (AUTO) 10.8 % (3-13); PLATELET COUNT 245 10^3/uL (150-450); RED BLOOD COUNT 4.67 10^6/uL (4.35-5.55); RED CELL DISTRIBUTION WIDTH 11.5 % (11.5-14.0); SEGMENTED NEUTROPHILS % (AUTO) 72.2 % (42-78); TOTAL CELLS COUNTED % (AUTO) 100 %; WHITE BLOOD COUNT 7.3 10^3/uL (4.0-10.5)
[2020-02-17 22:16] LABS: ALBUMIN 4.6 g/dL (3.5-5.0); ALKALINE PHOSPHATASE 55 U/L (38-126); ANION GAP 7 (5-19); ASPARTATE AMINO TRANSFERASE 20 U/L (17-59); BILIRUBIN,TOTAL 0.5 mg/dL (0.2-1.3); BLOOD UREA NITROGEN 15 mg/dL (7-20); CALCIUM 9.5 mg/dL (8.4-10.2); CARBON DIOXIDE 30 mmol/L (22-30); CHLORIDE 98 mmol/L (98-107); GLUCOSE 100 mg/dL (75-110); POTASSIUM 4.2 mmol/L (3.6-5.0)
--- NOTE | 2020-02-18 02:08 | RADIOLOGY REPORT (SQ) ---
EXAM DESCRIPTION: Site: CT ABD/PELVIS WITH IV ORAL RP: CT ABDOMEN PELVIS WITH IV CONTRAST CLINICAL HISTORY: 29 years Male; lower abd pain bloody diarrhea; TECHNIQUE: CT of the abdomen and pelvis using intravenous contrast. All CT scans at this facility use dose modulation, iterative reconstruction, and/or weight based dosing when appropriate to reduce radiation dose to as low as reasonably achievable. COMPARISON: None. FINDINGS: Abdomen: Stomach: No significant distention or surrounding edema. Liver:No focal lesions. No intrahepatic ductal distention. Gallbladder:Nondistended Pancreas:Within normal limits Spleen:Within normal limits Right kidney:No hydronephrosis. No focal lesion. Left kidney:No hydronephrosis. No focal lesion. Adrenal glands:Within normal limits Vascular structures:Within normal limits Pelvis: Small bowel:No significant distention. Appendix: Nondistended. Colon:No distention or acute pericolonic edema. Oral contrast is seen into the descending colon, without evidence for obstruction. No free intraperitoneal fluid or air. Bones: No acute bone findings. Bladder: Unremarkable. No pelvic mass or adenopathy. IMPRESSION: 1. Normal CT of the abdomen and pelvis with contrast.
--- NOTE | 2020-02-18 05:23 | ER Document Report ---
ED General - General Chief Complaint: Abdominal Pain Stated Complaint: BLOOD IN STOOL, SEVERE ABDOMINAL PAIN Time Seen by Provider: 02/17/20 21:00 Primary Care Provider: [facility] [Primary Care Provider] - Follow up in 1 week REY MOJICA MD [ACTIVE STAFF] - Follow up in 1 week Notes: 29-year-old male with no significant past medical history presents with 1 day of diarrhea with bright red blood. Patient says that he ate a suspicious meal at a gas station and an hour later began having severe waxing waning cramping lower abdominal pain associated with numerous episodes of loose watery stool with bright red blood mixed in. Frequency of stool has decreased since onset with no episodes in the emergency department. Patient denies vomiting, fever, recent travel, immunocompromise history, drug use, sick contacts, rash, unexplained weight loss, trauma, bleeding diatheses, anticoagulation, prior episodes TRAVEL OUTSIDE OF THE [place] IN LAST 30 DAYS: No - Related Data Allergies/Adverse Reactions: No Known Allergies Allergy (Verified 02/12/19 13:57) Home Medications: celexa, quit 7 days ago Past Medical History - General Information source: Patient - Social History Smoking Status: Never Smoker Family History: Reviewed & Not Pertinent - ETOH abuse Renal/ Medical History: Denies: Hx Peritoneal Dialysis Psychiatric Medical History: Reports: Hx Attention Deficit Hyperactivity Disorder, Hx Bipolar Disorder, Hx Depression - Immunizations Hx Diphtheria, Pertussis, Tetanus Vaccination: Yes Review of Systems - Review of Systems Notes: REVIEW OF SYSTEMS: CONSTITUTIONAL : Denies fever, chills, or sweats. EENT: Denies recent cold/sinus symptoms, denies throat pain CARDIOVASCULAR: Denies chest pain, CLAIRE RESPIRATORY: Denies cough, denies shortness of breath. GASTROINTESTINAL: + abdominal pain, -nausea/vomiting. GENITOURINARY: Denies difficulty urinating, painful urination. MUSCULOSKELETAL: Denies neck pain, back pain. SKIN: Denies rash or skin lesions. HEMATOLOGIC : Denies easy bruising or bleeding. LYMPHATIC: Denies swollen, enlarged glands. NEUROLOGICAL: Denies headache, denies change in gait. PSYCHIATRIC: Denies anxiety or stress or depression. Physical Exam - Vital signs Vitals: Temp Pulse Resp BP Pulse Ox 98.2 F 71 20 127/83 H 99 02/17/20 21:03 02/17/20 21:03 02/17/20 21:03 02/17/20 21:03 02/17/20 21:03 - Notes Notes: PHYSICAL EXAMINATION: GENERAL: Well-appearing, well-nourished and in no acute distress. HEAD: Atraumatic, normocephalic. EYES: Pupils equal round and appropriate constriction, sclera anicteric, conjunctiva are normal. ENT: nares patent, moist mucous membranes. NECK: Normal range of motion, supple without lymphadenopathy LUNGS: Breath sounds clear to auscultation bilaterally and equal. No wheezes rales or rhonchi. HEART: Regular rate and rhythm without murmurs ABDOMEN: Soft, nontender, mild diffuse discomfort on deep palpation of bilateral lower quadrants without any guarding or rebound, no masses, no CVAT. Faint low- volume red blood tinged stool in vault EXTREMITIES: Normal range of motion, no pitting or edema. No cyanosis. NEUROLOGICAL: Awake, alert, conversing appropriately, moves all extremities spontaneously. PSYCH: Normal mood, normal affect. SKIN: Warm, Dry, normal turgor, no rashes or lesions noted. Course - Re-evaluation Re-evalutation: 02/18/20 05:17 Patient with several episodes of bloody diarrhea but now symptoms significantly improved, benign abdominal exam, normal vital signs, well-appearing, no risk f actors for complicated course, no immunocompromise history, no anticoagulation, patient's hemoglobin is normal. Symptoms most likely secondary to acute infectious enterocolitis. Obtained CT which showed no abnormal findings with no diverticulitis or signs of colitis. Patient has no C. difficile risk factors and no indication to check given that symptoms are improving without any intervention. Possibility that this is a first presentation of Crohn's versus ulcerative colitis given patient's demographic which I informed patient of. Patient ready for discharge with PCP and GI follow-up. I gave patient extensive return to ED precautions which she demonstrated understanding of. Patient is in agreement with plan and denies having any other questions or concerns at this time. - Vital Signs Vital signs: Temp Pulse Resp BP Pulse Ox 98.7 F 84 16 109/63 97 02/18/20 05:55 02/18/20 05:55 02/18/20 05:55 02/18/20 05:55 02/18/20 05:55 - Laboratory Results Result Diagrams: 02/17/20 21:35 02/17/20 21:35 Laboratory Results Interpreted: 02/17/20 02/17/20 21:35 21:35 MCH 33.5 H Sodium 134.6 L Critical Laboratory Results Reviewed: No Critical Results - Radiology Results Critical Radiology Results Reviewed: No Critical Results Discharge - Discharge Clinical Impression: Bloody diarrhea Abdominal pain Qualifiers: Abdominal location: lower abdomen, unspecified Qualified Code(s): R10.30 - Lower abdominal pain, unspecified Disposition: HOME, SELF-CARE Additional Instructions: Your symptoms are likely due to an infection from something that you either touched, but could also be due to Crohn's disease or ulcerative colitis if symptoms persist. If you have any increased bleeding, dizziness, lightheadedness, weakness, fainting, fever, confusion, or any other worsening or alarming symptoms return to the emergency department immediately. Follow-up with primary doctor and oncology pharmacist within 1 week. Prescriptions: Dicyclomine HCl [Bentyl 20 mg Tablet] 20 mg PO QID PRN #12 tablet PRN Reason: Abdominal Cramping Referrals: REY MOJICA MD [ACTIVE STAFF] - [facility] - Follow up in 1 week
[2020-02-18 05:58] VITALS: BP 109/63
== END 2020-02-18 05:58 | disposition home or self-care (01) ==
LOC: ER 20:27
DX: R19.7 Diarrhea, unspecified (principal); K92.1 Melena; R10.30 Lower abdominal pain, unspecified
CPT/HCPCS: 36415; 74177; 80053; 82270; 83690; 85025; 99285

== ENCOUNTER 2020-02-27 13:23 | Emergency (ER) | payer SELFPAY ==
[2020-02-27] MEDS ORDERED: RINGERS SOLUTION,LACTATED 1,000 ML IV ONE (13:38)
[2020-02-27] MEDS ORDERED: ONDANSETRON HCL INJ/PF 4 MG/2 ML SDV IV ONE (13:38)
--- NOTE | 2020-02-27 13:40 | ER Document Report ---
ED Medical Screen (RME) - General Stated Complaint: NAUSEA/VOMITING/BODY FLUSHING/CHEST PAIN Time Seen by Provider: 02/27/20 13:35 Primary Care Provider: SHADI CHEEK [Primary Care Provider] - Follow up as needed Mode of Arrival: Wheelchair Information source: Patient Notes: HPI; 29-year-old male presents to the emergency room complaining of nausea with vomiting that started around 7 AM this morning. States is unable to tolerate anything p.o. Also complaining of tingling sensation to his chest with tingling to his bilateral hands. Patient states she was drinking heavily last night did approximately 20 shots. Thinks last ingestion of alcohol was around 9 PM. Has tried drinking Pedialyte and water this morning without success. PE: Alert and oriented x3. Lungs: Clear to auscultation without rales, rhonchi, wheezes. Heart: Tachycardic without murmurs, rubs, gallops. I have greeted and performed a rapid initial assessment of this patient. A comprehensive ED assessment and evaluation of the patient, analysis of test results and completion of the medical decision making process will be conducted by additional ED providers. I have specifically instructed the patient or family members with the patient to immediately return to any nursing staff should anything change in the patient's condition or with their chief complaint. TRAVEL OUTSIDE OF THE [place] IN LAST 30 DAYS: No - Related Data Allergies/Adverse Reactions: No Known Allergies Allergy (Verified 02/12/19 13:57) Past Medical History Renal/ Medical History: Denies: Hx Peritoneal Dialysis Psychiatric Medical History: Reports: Hx Attention Deficit Hyperactivity Di sorder, Hx Bipolar Disorder, Hx Depression - Immunizations Hx Diphtheria, Pertussis, Tetanus Vaccination: Yes Doctor's Discharge - Discharge Referrals: SHADI CHEEK [Primary Care Provider] - Follow up as needed
--- NOTE | 2020-02-27 14:51 | RADIOLOGY REPORT (SQ) ---
EXAM DESCRIPTION: CHEST SINGLE VIEW IMAGES COMPLETED DATE/TIME: 02/27/2020 1:29 pm REASON FOR STUDY: chest pain COMPARISON: 06/08/2019 EXAM PARAMETERS: NUMBER OF VIEWS: One view. TECHNIQUE: Single frontal radiographic view of the chest acquired. RADIATION DOSE: NA LIMITATIONS: None. FINDINGS: LUNGS AND PLEURA: No opacities, masses or pneumothorax. No pleural effusion. MEDIASTINUM AND HILAR STRUCTURES: No masses. Contour normal. HEART AND VASCULAR STRUCTURES: Heart normal in size. Normal vasculature. BONES: No acute findings. HARDWARE: None in the chest. OTHER: No other significant finding. IMPRESSION: NO ACUTE RADIOGRAPHIC FINDING IN THE CHEST. TECHNICAL DOCUMENTATION: JOB ID: [id number] 2010 [employer]- All Rights Reserved Reading location - IP/workstation name: [email or web address]
--- NOTE | 2020-02-27 15:50 | EKG REPORT ---
SEVERITY:- BORDERLINE ECG - SINUS RHYTHM BORDERLINE Q WAVE IN ANTEROLATERAL LEADS INFERIOR Q WAVES, PROBABLY NORMAL VARIATION : Confirmed by: Deepak Silva MD 27-Feb-2020 15:49:45
[2020-02-27 15:55] LABS: ABSOLUTE BASOPHILS # (AUTO) 0.1 10^3/uL (0.0-0.2); ABSOLUTE LYMPHOCYTES (AUTO) 0.7 10^3/uL (0.5-4.7); ABSOLUTE MONOCYTES (AUTO) 0.6 10^3/uL (0.1-1.4); ABSOLUTE NEUT (AUTO) 4.2 10^3/uL (1.7-8.2); EOSINOPHILS % (AUTO) 0.2 % (0-6); HEMOGLOBIN 14.2 g/dL (13.5-17.0); LYMPHOCYTES % (AUTO) 13.1 % (13-45); MEAN CORPUSCULAR HEMOGLOBIN 33.4 pg (27.0-33.4); MEAN CORPUSCULAR HGB CONC 35.6 g/dL (32.0-36.0); MEAN CORPUSCULAR VOLUME 94 fl (80-97); MONOCYTES % (AUTO) 10.3 % (3-13); PLATELET COUNT 253 10^3/uL (150-450); RED BLOOD COUNT 4.26 10^6/uL (4.35-5.55); RED CELL DISTRIBUTION WIDTH 11.7 % (11.5-14.0); SEGMENTED NEUTROPHILS % (AUTO) 75.4 % (42-78); TOTAL CELLS COUNTED % (AUTO) 100 %; WHITE BLOOD COUNT 5.6 10^3/uL (4.0-10.5)
[2020-02-27 16:17] LABS: ALBUMIN 4.3 g/dL (3.5-5.0); ALKALINE PHOSPHATASE 53 U/L (38-126); ANION GAP 7 (5-19); ASPARTATE AMINO TRANSFERASE 22 U/L (17-59); BILIRUBIN,TOTAL 1.1 mg/dL (0.2-1.3); BLOOD UREA NITROGEN 12 mg/dL (7-20); CARBON DIOXIDE 29 mmol/L (22-30); CHLORIDE 102 mmol/L (98-107); CREATINE KINASE 44 U/L (55-170); GLUCOSE 90 mg/dL (75-110); POTASSIUM 3.9 mmol/L (3.6-5.0); TOTAL PROTEIN 7.3 g/dL (6.3-8.2)
[2020-02-27 16:19] LABS: ALCOHOL < 10 mg/dL (NONE DETECTED)
[2020-02-27 16:30] LABS: CREATINE KINASE MB < 0.22 ng/mL (<4.55); TROPONIN I < 0.012 ng/mL
[2020-02-27 16:49] LABS: APPEARANCE,URINE CLEAR; BILIRUBIN,URINE NEGATIVE (NEGATIVE); COLOR,URINE YELLOW; GLUCOSE, URINE NEGATIVE (NEGATIVE); KETONES,URINE TRACE mg/dL (NEGATIVE); LEUKOCYTE ESTERASE,URINE NEGATIVE (NEGATIVE); NITRITE,URINE NEGATIVE (NEGATIVE); PROTEIN,URINE 100 mg/dL (NEGATIVE); URINE SPECIFIC GRAVITY 1.026; UROBILINOGEN,URINE NEGATIVE mg/dL (<2.0)
[2020-02-27 17:05] LABS: URINE AMPHETAMINES SCREEN NEGATIVE; URINE BARBITURATES SCREEN NEGATIVE; URINE BENZODIAZEPINES SCREEN NEGATIVE; URINE COCAINE SCREEN NEGATIVE; URINE MARIJUANA (THC) SCREEN NEGATIVE; URINE METHADONE SCREEN NEGATIVE; URINE PHENCYCLIDINE SCREEN NEGATIVE
--- NOTE | 2020-02-28 00:23 | ER Document Report ---
ED GI/ - General Chief Complaint: Chest Pain Stated Complaint: NAUSEA/VOMITING/BODY FLUSHING/CHEST PAIN Time Seen by Provider: 02/27/20 13:35 Primary Care Provider: [facility] SHADI PORTER [NO LOCAL MD] - Follow up as needed Mode of Arrival: Wheelchair Notes: Patient is a 29-year-old male who presents emergency department with a chief complaint of nausea, vomiting, and chest tingling that started this morning. Patient states that he also has back pain. He states that he has been drinking heavily over the past week. States that he took 27 shots last night. States that he drinks excessively during the holidays. Denies any other past medical history. TRAVEL OUTSIDE OF THE [place] IN LAST 30 DAYS: No - Related Data Allergies/Adverse Reactions: No Known Allergies Allergy (Verified 02/12/19 13:57) Home Medications: celexa stopped 1.5 weeks Past Medical History - General Information source: Patient - Social History Smoking Status: Never Smoker Frequency of alcohol use: Heavy Drug Abuse: Marijuana Family History: Reviewed & Not Pertinent - ETOH abuse Renal/ Medical History: Denies: Hx Peritoneal Dialysis Psychiatric Medical History: Reports: Hx Attention Deficit Hyperactivity Disorder, Hx Bipolar Disorder, Hx Depression - Immunizations Hx Diphtheria, Pertussis, Tetanus Vaccination: Yes Review of Systems - Review of Systems Notes: REVIEW OF SYSTEMS: CONSTITUTIONAL : Denies recent illness. Denies recent unintentional weight loss. Denies fever, chills, or sweats. EENT: Denies eye, ear, throat, or mouth pain, discharge, or symptoms. Denies nasal or sinus congestion. CARDIOVASCULAR: Denies chest pain. RESPIRATORY: Denies shortness of breath, cough, congestion, difficulty breathing, or wheezing. GASTROINTESTINAL: See HPI. GENITOURINARY: Denies difficulty urinating, burning, blood in urine, urgency or frequency. MUSCULOSKELETAL: Denies neck and back pain. Denies joint pain or swelling. SKIN: Denies rash, itchiness, or lesions HEMATOLOGIC : Denies easy bruising or bleeding. LYMPHATIC: Denies swollen, painful, enlarged glands. NEUROLOGICAL: Denies no numbness or tingling denies weakness. Denies headache. Denies altered mental status. Denies alteration in speech. PSYCHIATRIC: Denies stress, anxiety, alteration in sleep patterns, or depression. All other systems reviewed and negative. Physical Exam - Vital signs Vitals: Temp Pulse BP Pulse Ox 98.2 F 125 H 138/73 H 100 02/27/20 13:39 02/27/20 13:39 02/27/20 13:39 02/27/20 13:39 - Notes Notes: PHYSICAL EXAMINATION: GENERAL: Appears well, healthy, well-nourished, no acute distress. HEAD: Normocephalic, atraumatic. EYES: PERRL, conjunctiva normal, all extraocular movements intact, sclera nonicteric ENT: Moist mucous membranes. NECK: Supple, no noticeable swelling, redness, rash. Normal range of motion. LUNGS: Equal breath sounds bilaterally and clear to auscultation. No wheezes rales or rhonchi. CARDIOVASCULAR: S1-S2, regular rate, regular rhythm. Radial pulses 2+, normal. ABDOMEN: Normoactive bowel sounds. Soft, nontender, no guarding, no rebound tenderness, and no masses palpated. EXTREMITIES: Normal strength and range of motion, no pitting or edema. No cyanosis. NEUROLOGICAL: Moves all extremities upon command. Strength 5/5 in all extremities. PSYCH: Normal mood, normal affect. SKIN: Warm, dry. No rash, lesions, ulcerations noted. Normal skin turgor. Course - Re-evaluation Re-evalutation: Chest x-ray is unremarkable. Hematology is unremarkable. No leukocytosis or anemia noted. Chemistries are unremarkable. Troponin is negative x2. Lipase is unremarkable. Patient has protein and ketones in his urine, consistent with dehydration. Toxicology is unremarkable and alcohol level is negative. Advised the patient not to drink excessively. He is in agreement with this plan. Follow-up precautions were given. Verbal discharge instructions were given to the patient. They verbalized understanding. They are stable for discharge. - Vital Signs Vital signs: Temp Pulse Resp BP Pulse Ox 98.6 F 69 16 93/60 L 94 02/28/20 01:45 02/28/20 01:45 02/28/20 01:45 02/28/20 01:45 02/28/20 01:45 - Laboratory Results Result Diagrams: 02/27/20 15:20 02/27/20 15:20 Laboratory Results Interpreted: 02/27/20 02/27/20 02/27/20 15:20 15:20 15:20 RBC 4.26 L Creatine Kinase 44 L Urine Protein 100 H Urine Ketones TRACE H Critical Laboratory Results Reviewed: No Critical Results - Radiology Results Critical Radiology Results Reviewed: No Critical Results - EKG Interpretation by Me Additional EKG results interpreted by me: Sinus rhythm. rate 94. NC 144; QRS 88; QT 340; QTc 426. No ST elevations or depressions noted. Discharge - Discharge Clinical Impression: Dehydration Alcohol intoxication Qualifiers: Complication of substance-induced condition: uncomplicated Qualified Code(s): F10.920 - Alcohol use, unspecified with intoxication, uncomplicated Condition: Stable Disposition: HOME, SELF-CARE Additional Instructions: You were seen today in the emergency department for nausea, vomiting, and chest pain. Your symptoms are due to you drinking too much yesterday. Please stop drinking too much alcohol, as this may make you dehydrated and feel this way eventually you will develop pancreatitis. Drink plenty of water. Take the nausea medication as needed for nausea or vomiting. Follow-up with your primary care provider as needed. Prescriptions: Ondansetron [Zofran Odt 4 mg Tablet] 1 - 2 tab PO Q4H PRN #15 tab.rapdis PRN Reason: For Nausea/Vomiting Referrals: [facility] [NO LOCAL MD] - Follow up as needed
[2020-02-28] MEDS ORDERED: ONDANSETRON ODT 4 MG TAB (6 TAB/ER DISP) PO PRN (01:13)
[2020-02-28 01:48] VITALS: BP 93/60
== END 2020-02-28 01:48 | disposition home or self-care (01) ==
LOC: ER 13:23
DX: E86.0 Dehydration (principal); F10.920 Alcohol use, unspecified with intoxication, uncomplicated; R07.9 Chest pain, unspecified; R11.2 Nausea with vomiting, unspecified; R20.0 Anesthesia of skin; M54.9 Dorsalgia, unspecified; F12.10 Cannabis abuse, uncomplicated; Z79.899 Other long term (current) drug therapy
CPT/HCPCS: 93005; 99285; 96360; 96361; 36415; 82553; 80307 ×2; 82550; 83690; 85025; 80053; 81001; 84484; 71045; 93010; J7120